=== PATIENT | female | born 1935 | race Caucasian/White ===

== ENCOUNTER 2025-01-07 12:37 | Inpatient (IN) ==
--- NOTE | 2025-01-07 13:01 | XRay Report ---
XR chest 1V portable CLINICAL HISTORY: Dyspnea, swelling COMPARISON STUDY: 02/09/2018 FINDINGS: There is mild cardiomegaly with pulmonary vascular congestion. There is opacity at the left base with obscuration of the left hemidiaphragm and blunting of the left costophrenic angle. No pneu mothorax. Interval left shoulder prosthesis shows no hardware palpitation. IMPRESSION: CHF with small left pleural effusion and associated left lung base consolidation. ACT 112: Negative or not required by law. Electronically signed by: Foreign Tapia M.D. 01/07/2025 1:00 PM
[2025-01-07 13:05] LABS: Basophils # (auto) 0.04 K/uL (0.00-0.20); Basophils % (auto) 0.8 %; Eosinophils # (auto) 0.08 K/uL (0.00-0.50); Eosinophils % (auto) 1.7 %; Hematocrit (blood only) 32.8 % (37.0-47.0); Hemoglobin 9.9 g/dl (12.0-16.0); Immature Granulocytes # (auto) 0.02 K/uL (0.01-0.20); Immature Granulocytes % (auto) 0.4 %; Lymphocytes # (auto) 0.52 K/uL (1.20-3.40); Mean Corpuscular Hemoglobin 24.9 pg (25.0-34.0); Mean Corpuscular Hgb Conc 30.2 g/dL (32.0-36.0); Mean Corpuscular Volume 82.6 fL (80.0-100.0); Mean Platelet Volume 9.2 fL (9.4-12.4); Monocytes % (auto) 6.4 %; Neutrophils # (auto) 3.76 K/uL (1.40-6.50); Neutrophils % (auto) 79.7 %; Platelet Count 472 K/uL (130-400); RDW Coefficient of Variation 16.3 % (11.5-14.5); RDW Standard Deviation 47.2 fL (36.4-46.3); Red Blood Count 3.97 M/uL (4.20-5.40); White Blood Count 4.72 K/ul (4.8-10.8)
--- NOTE | 2025-01-07 13:08 | Emergency Department Note ---
Impression & Plan Weakness, Congestive heart failure, Acute UTI, Pulmonary edema ED Provider Note Provider: Solomon Casanova MD CHIEF COMPLAINT: Shortness of breath, swelling HISTORY OF PRESENT ILLNESS: Patient is a 89-year-old female present here via ambulance from home today. Patient sees a past 2 weeks she has had worsening shortness of breath. Increased swelling lower extremities reported. States she does take Lasix and took to 20 mg Lasix today instead of 1 to try to help. Some cough this morning. No chest pain. No fevers. Denies any nausea, vomiting, abdominal pain. Denies again falls or trauma to me. No sore throat or nasal congestion. States that her son was concerned about her breathing and recommended she come here for evaluation. Follows with her doctor in [place]. Breathing is significantly worse with exertion. Patient later does states she took extra Lasix pill yesterday and today. PAST MEDICAL HISTORY: As noted above MEDICATIONS: Reviewed home medications SOCIAL HISTORY: Non-smoker, lives with son PHYSICAL EXAM: GENERAL: alert and oriented in no acute distress on stretcher Head: normocephalic and atraumatic EYES: No injection, discharge or icterus. NECK: Trachea midline. ENT: Mucous membranes pink and moist. LUNGS: Airway patent. No retractions. Breath sounds crackles in the bases, diminished, no wheezes HEART: Regular rate and rhythm. No chest wall tenderness ABDOMEN: Soft and non-tender, without guarding or rebound. SKIN: Acyanotic, warm, dry, without rashes EXTREMITIES: Without tenderness with 2+ edema of the lower extremities. NEUROLOGICAL: No focal deficits. No aphasia. No facial droop or slurred speech. EK bpm sinus rhythm with PVC and PAC. No acute ST segment elevation or depression. QTc 454. CONTINUOUS CARDIAC MONITORING: was ordered and showed a heart rate of 70s to 90s bpm in normal sinus rhythm occasional PVC/PAC Patient's laboratory studies and imaging reviewed. Differential includes Infection, dehydration, metabolic abnormality, hypo/hyperglycemia, electrolyte disturbance, anemia, hypoxia, pneumonia, fluid overload, cardiac sources, neurologic, as well as other pathologies. IMPRESSION/MEDICAL DECISION MAKING: Patient in no severe distress and not hypoxic here at rest. Does appear grossly fluid overloaded on exam. X-ray shows evidence of pulmonary edema with a left- sided effusion.. No chest pain and EKG without STEMI findings. Troponin sent and BNP. Basic blood obtained. Respiratory viral panel sent but lower suspicion at this time for an infectious source. Moderate anemia here hemoglobin 9.9. White blood count 4.7. No significant shift. Negative respiratory viral panel. Urinalysis is somewhat concerning for infection. BNP elevated 872. Troponin just above normal 18.4 but I doubt acute ACS. No skin electrolyte abnormality signs or renal dysfunction. Discussed with her and family at bedside. Will give additional Lasix and will cover ceftriaxone for possible UTI. Again lower suspicion for pneumonia but believe UTI in conjunction with fluid overload affecting her. Discussed with him her staying for further observation and care given both these problems and combined with her comorbidities. In shared decision making patient and her sons agree with this plan. Evidently has recently established with [facility]. Has some valvular issues that could be further workup as I do not have a recent echo here. Hospitalist team contacted. DIAGNOSIS: CHF, UTI, shortness of breath DISPOSITION: Hospitalist will evaluate Patient was agreeable with this plan. 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 (RADIATION [place]) Lyme disease CAUSED BLOOD INFECTION 2017 Hyperlipidemia HX OF Surgical History History of cataract surgery LEFT H/O shoulder surgery LEFT SHOULDER REPLACEMENT History of cardiac cath X 2 (NO STENTS) Family History Mother Family history of diabetes mellitus Social History Smoking Status: Never smoker Second Hand Exposure: No; Do You Dip or Chew Tobacco: No; Hx Alcohol Use: No Hx Substance Use: No Preferred Language: Telugu Communication Ability: Effective Childcare Director Required: No Beliefs That Will Affect Care: None Current Living Situation: Family Current Living Situation Comment: LIVES WITH SON Feels Safe at Home: Yes Assistive Devices: Glasses Allergies Allergies Allergy/AdvReac Type Severity Reaction Status Date / Time Iodinated Contrast Media Allergy Intermediate HIVES Verified 12/07/18 08:40 Penicillins Allergy Intermediate RASH Verified 12/07/18 08:40 Home Meds Home Medications Medication Instructions Recorded Confirmed amlodipine 5 mg tablet 5 mg PO QAM 11/12/18 01/07/25 aspirin 81 mg tablet,delayed 81 mg PO QAM 11/12/18 01/07/25 release (Aspir-Low) ferrous sulfate 325 mg (65 mg 325 mg PO DAILY 01/07/25 01/07/25 iron) tablet (Iron (ferrous sulfate)) furosemide 20 mg tablet 20 mg PO DAILY 01/07/25 01/07/25 lisinopril 20 mg tablet 20 mg PO HS 01/07/25 01/07/25 qdlvjcrcepcw-wghvxhwk-jvwmdm tablet 1 tab PO DAILY 01/07/25 01/07/25 Results & Data (ED) Vital Signs Vital Signs - 24 hr 01/07/25 12:43 01/07/25 12:43 01/07/25 12:44 Temperature 36.5 C Temperature Source Oral Pulse Rate 82 Respiratory Rate 18 Respiratory Depth Normal Blood Pressure 149/101 H Blood Pressure Mean 117 Blood Pressure Position Semi-fowlers Pulse Oximetry 96 Oxygen Delivery Method Room Air Room Air Room Air Sepsis Recent Fever Within 48 Hours No Sepsis New/Unexplained Change in Mental Status No Sepsis Action Taken by Nursing No Action Required 01/07/25 14:19 Temperature Temperature Source Pulse Rate 70 Respiratory Rate Respiratory Depth Blood Pressure Blood Pressure Mean Blood Pressure Position Pulse Oximetry Oxygen Delivery Method Sepsis Recent Fever Within 48 Hours Sepsis New/Unexplained Change in Mental Status Sepsis Action Taken by Nursing Laboratory Data 01/07/25 12:45 01/07/25 12:45 Lab Results 01/07/25 01/07/25 01/07/25 Range/Units 12:45 12:50 13:30 WBC 4.72 L (4.8-10.8) K/ul RBC 3.97 L (4.20-5.40) M/uL Hgb 9.9 L (12.0-16.0) g/dl Hct 32.8 L (37.0-47.0) % MCV 82.6 (80.0-100.0) fL MCH 24.9 L (25.0-34.0) pg MCHC 30.2 L (32.0-36.0) g/dL RDW Std Deviation 47.2 H (36.4-46.3) fL RDW Coeff of Donna 16.3 H (11.5-14.5) % Plt Count 472 H (130-400) K/uL MPV 9.2 L (9.4-12.4) fL Immature Gran % (Auto) 0.4 % Neut % (Auto) 79.7 % Lymph % (Auto) 11.0 % Collin % (Auto) 6.4 % Eos % (Auto) 1.7 % Baso % (Auto) 0.8 % Neut # (Auto) 3.76 (1.40-6.50) K/uL Lymph # (Auto) 0.52 L (1.20-3.40) K/uL Collin # (Auto) 0.30 (0.11-0.59) K/uL Eos # (Auto) 0.08 (0.00-0.50) K/uL Baso # (Auto) 0.04 (0.00-0.20) K/uL Immature Gran # (Auto) 0.02 (0.01-0.20) K/uL PT 11.0 (9.0-12.0) Seconds INR 1.0 (0.9-1.1) APTT 24 (21-31) Seconds PTT Ratio 0.9 Sodium 141 (136-145) mmol/L Potassium 3.9 (3.5-5.1) mmol/L Chloride 106 (98-107) mmol/L Carbon Dioxide 28 (21-32) mmol/L Anion Gap 7 (3-11) BUN 10 (6-23) mg/dl Creatinine 0.76 (0.6-1.2) mg/dl Est Cr Clr Drug Dosing 39.7 ml/min eGFR 74.85 BUN/Creatinine Ratio 13.2 (10-20) Glucose 121 H (70-99(Fasting)) mg/dl Calcium 9.3 (8.6-10.3) mg/dl Magnesium 2.1 (1.7-2.4) mg/dl Total Bilirubin 0.4 (0.2-1.0) mg/dl AST 27 (13-39) U/L ALT 20 (7-52) U/L Alkaline Phosphatase 63 (34-104) U/L Troponin I High Sens 18.4 H (0-14) pg/ml B-Natriuretic Peptide 872 H (0-100) pg/ml Total Protein 8.6 H (6.0-8.3) gm/dl Albumin 4.2 (3.4-5.0) gm/dl Globulin 4.4 H (2.5-4.0) gm/dl Albumin/Globulin Ratio 1.0 (0.9-2) Urine Color Yellow Urine Appearance Clear (Clear) Urine pH 7.0 (4.5-7.5) Ur Specific [place] 1.008 (1.000-1.030) Urine Protein Negative (Negative) Urine Glucose (UA) Negative (Negative) Urine Ketones Negative (Negative) Urine Blood Negative (Negative) Urine Nitrite Positive A (Negative) Urine Bilirubin Negative (Negative) Urine Urobilinogen Negative (Negative) Ur Leukocyte Esterase 1+ H (Negative) Urine WBC (Auto) 6-10 H (0-5) /hpf Urine RBC (Auto) 0-2 (0-2) /hpf U Hyaline Cast (Auto) 0-2 (0-2) /lpf U Epithel Cells (Auto) 0-2 (0-2) /hpf Urine Bacteria (Auto) 4+ H (None Seen) Adenovirus (PCR) Not Detected (NotDetected) B. pertussis DNA (PCR) Not Detected (NotDetected) B.parapertussis DNA PCR Not Detected (NotDetected) C. pneumoniae DNA (PCR) Not Detected (NotDetected) Coronavirus OC43 (PCR) Not Detected (NotDetected) Coronavirus HKU1 (PCR) Not Detected (NotDetected) Coronavirus 229E (PCR) Not Detected (NotDetected) SARS-CoV-2 (PCR) Not Detected (NotDetected) Coronavirus NL63 (PCR) Not Detected (NotDetected) Human Metapneumovir PCR Not Detected (NotDetected) Influenza Type A (PCR) Not Detected (NotDetected) Influenza Type B (PCR) Not Detected (NotDetected) M. pneumoniae (PCR) Not Detected (NotDetected) Parainfluenza 1 (PCR) Not Detected (NotDetected) Parainfluenza 2 (PCR) Not Detected (NotDetected) Parainfluenza 3 (PCR) Not Detected (NotDetected) Parainfluenza 4 (PCR) Not Detected (NotDetected) RSV (PCR) Not Detected (NotDetected) Entero/Rhino (PCR) Not Detected (NotDetected) Administered Medications Discontinued Medications Furosemide (Furosemide Inj 20 Mg/2 Ml Vial) 20 mg IV ONE ONE Stop: 01/07/25 14:04 Last Admin: 01/07/25 14:10 Dose: 20 mg Documented By: ROYER Furosemide (Furosemide Inj 20 Mg/2 Ml Vial) 20 mg IV ONE ONE Stop: 01/07/25 14:53 Last Admin: 01/07/25 15:38 Dose: 20 mg Documented By: ALIANA Ceftriaxone Sodium (Rocephin) 2,000 mg in 50 mls @ 100 mls/hr IV NOW STA Stop: 01/07/25 14:32 Last Infusion: 01/07/25 14:40 Dose: Infused Documented By: Admin: 01/07/25 14:10 Dose: 100 mls/hr Documented By: ROYER Imaging Data Radiologist's Impression: Chest X-Ray 01/07/25 12:44 XR chest 1V portable CLINICAL HISTORY: Dyspnea, swelling COMPARISON STUDY: 02/09/2018 FINDINGS: There is mild cardiomegaly with pulmonary vascular congestion. There is opacity at the left base with obscuration of the left hemidiaphragm and blunting of the left costophrenic angle. No pneumothorax. Interval left shoulder prosthesis shows no hardware palpitation. IMPRESSION: CHF with small left pleural effusion and associated left lung base consolidation. ACT 112: Negative or not required by law. Electronically signed by: Foreign Tapia M.D. 01/07/2025 1:00 PM Discharge Plan Visit Data Chief Complaint: Shortness of Breath/Dyspnea Stated Complaint: SOB, LOWER EXT. EDEMA ED Provider: Solomon Casanova Discharge Problem: Weakness, Congestive heart failure, Acute UTI, Pulmonary edema Patient Disposition: Being Evaluated by Hospitalist Condition: Fair Forms Stand Alone Forms: My [facility] Prescriptions Prescriptions: No Action amlodipine 5 mg Tablet 5 mg PO QAM aspirin [Aspir-Low] 81 mg Tablet,Delayed Release (Dr/Ec) 81 mg PO QAM lisinopril 20 mg tablet 20 mg PO HS furosemide 20 mg tablet 20 mg PO DAILY ferrous sulfate [Iron (ferrous sulfate)] 325 mg (65 mg iron) Tablet 325 mg PO DAILY Centrum Silver Tablet 1 tab PO DAILY Referrals Referrals: Robert Almanza [Outside Practitioners] - Discharge Problem: Congestive heart failure Qualifiers: Heart failure type: unspecified
[2025-01-07 13:22] LABS: Albumin Level 4.2 gm/dl (3.4-5.0); BUN Creatinine Ratio 13.2 (10-20); Bilirubin,Total 0.4 mg/dl (0.2-1.0); Calcium 9.3 mg/dl (8.6-10.3); Creatinine Clr Calc Pharmacy 39.7 ml/min; Globulin 4.4 gm/dl (2.5-4.0); Magnesium 2.1 mg/dl (1.7-2.4); Potassium 3.9 mmol/L (3.5-5.1); Total Protein 8.6 gm/dl (6.0-8.3)
[2025-01-07 13:28] LABS: Troponin I High Sensitivity 18.4 pg/ml (0-14)
[2025-01-07 13:33] LABS: Partial Thromboplastin Ratio 0.9; Partial Thromboplastin Time 24 Seconds (21-31)
[2025-01-07 13:43] LABS: Appearance Urine Clear (Clear); Bacteria Urine Automated 4+ (None Seen); Bilirubin Urine Negative (Negative); Blood Urine Negative (Negative); Cast Urine Automated 0-2 /lpf (0-2); Color Urine Yellow; Epithelial Cell Urine Auto 0-2 /hpf (0-2); Glucose Urine UA Negative (Negative); Ketones Urine Negative (Negative); Leukocyte Esterase Urine 1+ (Negative); Nitrite Urine Positive (Negative); Protein Urine Negative (Negative); RBC Urine Automated 0-2 /hpf (0-2); Specific Gravity Urine 1.008 (1.000-1.030); Urobilinogen Urine Negative (Negative)
[2025-01-07 13:50] LABS: Adenovirus PCR Not Detected (NotDetected); Bordetella parapertussis PCR Not Detected (NotDetected); Bordetella pertussis PCR Not Detected (NotDetected); Chlamydia pneumoniae PCR Not Detected (NotDetected); Coronavirus 229E PCR Not Detected (NotDetected); Coronavirus CoV-2 (COVID19)PCR Not Detected (NotDetected); Coronavirus HKU1 PCR Not Detected (NotDetected); Coronavirus NL63 PCR Not Detected (NotDetected); Coronavirus OC43PCR Not Detected (NotDetected); Human Metapneumovirus PCR Not Detected (NotDetected); Influenza A PCR Not Detected (NotDetected); Influenza B PCR Not Detected (NotDetected); Mycoplasma pneumoniae PCR Not Detected (NotDetected); Parainfluenza Virus 1 PCR Not Detected (NotDetected); Parainfluenza Virus 2 PCR Not Detected (NotDetected); Parainfluenza Virus 3 PCR Not Detected (NotDetected); Parainfluenza Virus 4 PCR Not Detected (NotDetected); Respiratory Syncytial VirusPCR Not Detected (NotDetected); Rhinovirus/Enterovirus PCR Not Detected (NotDetected)
[2025-01-07] MEDS: cefTRIAXone SODIUM 2,000 MG/50 ML BAG IV STA (14:10)
[2025-01-07] MEDS: FUROSEMIDE INJ 20 MG/2 ML VIAL IV ONE ×2 (14:10→15:38)
--- NOTE | 2025-01-07 14:24 | History & Physical Report ---
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 CHF SOB on exertion, orthopnea, worsening LE edema x2 weeks per patient CXR findings include mild cardiomegaly with pulmonary vascular congestion, opacity at left base BNP elevated to 872 Repeat IV lasix 20mg for total of 40mg Daily weight and accurate I&Os 1500mL fluid restriction Labs in am Consult Cardiology and appreciate recs Possible PNA CXR findings included opacity at left base - could be fluid vs pneumonia Patient reports productive cough Procalcitonin pending Hold off on abx for now Elevated troponin Initial troponin 18.4 Repeat pending Iron deficiency anemia Labs demonstrate anemia with RBC 3.97, Hgb 9.9, Hct 32.8 Outpatient iron studies reviewed with iron 17, TIBC 317, ferritin 31 Continue ferrous sulfate as prescribed by outpatient PCP UTI UA +nitrites, leuk esterase, WBCs, bacteria Received rocephin x1 in ED Patient asymptomatic Hold off on abx for now Follow urine culture Hypertension Continue amlodipine and lisinopril per home dosing History of maltoma s/p radiation therapy and currently under surveillance Follows with Heme/Onc last seen in 2018 DVT Prophylaxis: SQ Heparin Code Status: FULL CODE - As per discussion at bedside with the patient. PCP: Disposition: admit to telemetry Patient seen in collaboration with Dr Dagn. Please see addendum. I spent a total of 75 minutes coordinating, documenting and providing care for this patient excluding time spent in the performance of separately billed services or time spent by another provider/QHP. Admission and Anticipated Discharge Date Admission Date: 01/07/2025 History of Present Illness Chief Complaint: SOB Primary Care Provider: Nimo Robles MD 89 year old female with PMH significant for CAD, HTN, HLD, GERD, LE edema, and history of maltoma s/p radiation therapy who presented to the ED today with SOB and edema x2 weeks. History obtained from patient and son/daughter in law. She reports SOB with exertion, orthopnea, and worsening LE edema for the last two weeks. She also notes an intermittent cough with phlegm and runny nose only when bending over for the last two weeks as well. Denies chest pain, headache, dizziness, sore throat, N/V/D, urinary symptoms, hematuria, hematochezia. Her daughter in law notes that she has a valve issue and recently switched from [facility] to [facility] in [place]. Allergies Allergy/AdvReac Type Severity Reaction Status Date / Time Iodinated Contrast Media Allergy Intermediate HIVES Verified 12/07/18 08:40 Penicillins Allergy Intermediate RASH Verified 12/07/18 08:40 Home Medications Medication Instructions Recorded Confirmed Type amlodipine 5 mg tablet 5 mg PO QAM 11/12/18 01/07/25 History aspirin 81 mg tablet,delayed 81 mg PO QAM 11/12/18 01/07/25 History release (Aspir-Low) ferrous sulfate 325 mg (65 mg 325 mg PO DAILY 01/07/25 01/07/25 History iron) tablet (Iron (ferrous sulfate)) furosemide 20 mg tablet 20 mg PO DAILY 01/07/25 01/07/25 History lisinopril 20 mg tablet 20 mg PO HS 01/07/25 01/07/25 History gunoepvqyqcf-fihhnyul-tqzavt tablet 1 tab PO DAILY 01/07/25 01/07/25 History 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 (RADIATION [place]) Lyme disease CAUSED BLOOD INFECTION 2018 Hyperlipidemia HX OF Surgical History History of cataract surgery LEFT H/O shoulder surgery LEFT SHOULDER REPLACEMENT History of cardiac cath X 2 (NO STENTS) Family History Mother Family history of diabetes mellitus Social History Smoking Status: Never smoker Second Hand Exposure: No; Do You Dip or Chew Tobacco: No; Hx Alcohol Use: No Hx Substance Use: No Preferred Language: Icelandic Communication Ability: Effective 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 Beliefs That Will Affect Care: None Current Living Situation: Family Current Living Situation Comment: LIVES WITH SON Feels Safe at Home: Yes Assistive Devices: Glasses Review of Systems Review of Systems: All systems reviewed & are unremarkable except as noted in HPI & below Physical Exam Physical Exam: refer to exam by Dr Dang Results & Data Results & Data Vital Signs (Past 12 Hours) Vital Signs Temp Pulse Resp BP Pulse Ox O2 Del Method 01/07/25 14:19 70 01/07/25 12:44 Room Air 01/07/25 12:43 Room Air 01/07/25 12:43 36.5 C 82 18 149/101 H 96 Room Air Laboratory Results Short CBC 01/07/25 Range/Units 12:45 WBC 4.72 L (4.8-10.8) K/ul Hgb 9.9 L (12.0-16.0) g/dl Hct 32.8 L (37.0-47.0) % Plt Count 472 H (130-400) K/uL BMP 01/07/25 12:45 Sodium 141 Potassium 3.9 Chloride 106 Carbon Dioxide 28 BUN 10 Creatinine 0.76 Glucose 121 H Calcium 9.3 Liver Function 01/07/25 Range/Units 12:45 Total Bilirubin 0.4 (0.2-1.0) mg/dl AST 27 (13-39) U/L ALT 20 (7-52) U/L Alkaline Phosphatase 63 (34-104) U/L Albumin 4.2 (3.4-5.0) gm/dl Urine 01/07/25 Range/Units 13:30 Urine Color Yellow Urine Appearance Clear (Clear) Urine pH 7.0 (4.5-7.5) Ur Specific [place] 1.008 (1.000-1.030) Urine Protein Negative (Negative) Urine Glucose (UA) Negative (Negative) I have independently reviewed and interpreted patient's admitting labs including CBC, CMP, PTT, PT/INR, mag, troponin, BNP, UA. Diagnostic Findings Chest X-Ray 01/07/25 12:44 XR chest 1V portable CLINICAL HISTORY: Dyspnea, swelling COMPARISON STUDY: 02/09/2018 FINDINGS: There is mild cardiomegaly with pulmonary vascular congestion. There is opacity at the left base with obscuration of the left hemidiaphragm and blunting of the left costophrenic angle. No pneumothorax. Interval left shoulder prosthesis shows no hardware palpitation. IMPRESSION: CHF with small left pleural effusion and associated left lung base consolidation. ACT 112: Negative or not required by law. Electronically signed by: Foreign Tapia M.D. 01/07/2025 1:00 PM Code Status & VTE Plan Code Status Full Code Supervising Physician Co-Signing Physician Notes Presents with shortness of breath especially with exertion and leg swelling for the past 2 weeks ROS notable for cough, orthopnea Denied any urinary symptoms, fever, chills On exam, General: Elderly woman in no distress Eyes: PERRL, conjunctivae normal, not pale, anicteric sclerae, EOM intact bilaterally ENMT: External ear and nose normal, oropharynx normal Respiratory: Normal respiratory effort, no respiratory distress, +crackles Cardiovascular: RRR S1 S2 +murmur Gastrointestinal (Abdomen): Abdomen is not distended, soft, non-tender to palpation, no guarding, no palpable hepatosplenomegaly, normal bowel sounds Musculoskeletal: Bilateral pitting pedal edema Neurologic: Alert and oriented x 3, No focal weakness, sensation grossly intact Psychiatric: Euthymic affect Labs notable for Hb of 9.9, trop 18, BNP 872 CXR noted congestion left pleural effusion. Possible left base consolidation History and exam suggestive of Congestive Heart Failure Start IV lasix 40mg daily Daily weights, I/O Get TTE Trend trop Cards c/s Get EKG Considering no fever or leukocytosis, hold off antibiotics for now Check procal UA had +esterase, nitrite, 6-10 WBC but patient denied all urinary symptoms Agree with plans as detailed by Selena BRASHER I spent a total of 40 minutes coordinating, documenting and providing care for this patient excluding time spent in performance of separately billed services (1) Congestive heart failure Heart failure type: unspecified
--- NOTE | 2025-01-07 16:06 | Cardiology Consultation ---
Date of Consultation January 07, 2025 Assessment & Plan (1) Systolic and diastolic CHF, acute: (2) Aortic stenosis: (3) Murmur: (4) ASCVD (arteriosclerotic cardiovascular disease): (5) Elevated troponin: (6) Iron deficiency anemia: (7) HTN, goal below 140/80: (8) Dyslipidemia, goal LDL below 70: Plan 89-year-old female presenting with signs and symptoms suggesting acute decompensated systolic and diastolic congestive heart failure occurring in the setting of at least moderate probable aortic valve stenosis, known ASCVD with remote intervention detailed below, undefined iron deficiency anemia. High- sensitivity troponin mildly elevated. EKG abnormal though without new/acute ST segment change. Recommendations: * Agree with IV furosemide at 40 mg/day * Supplement potassium orally * Refer for resting echocardiography * Daily weights on same standing scale * Document I's and O's as accurately as possible * Daily labs * Continuous telemetry monitoring * Add low dose beta-jay therapy * Decrease lisinopril dosing from 20 mg/day to 10 mg/day, in the setting of aortic stenosis * Consider reduction in amlodipine dosing pending all of the above. * Continue aspirin 81 mg/day * Workup of iron deficiency anemia, asymptomatic UTI and possible pneumonia as per Hospitalist Service Supervising Physician Co-Signing Physician Notes Attending attestation: Case reviewed with the advanced practitioner. I have personally performed a history and physical examination on the patient. I have reviewed the advanced practitioner's documentation on the date of service referenced in note, and I agree with, and take responsibility for the plan of care. Boo Irizarry DO History of Present Illness Reason for Consultation: Congestive heart failure Requesting Physician: Selena BRASHER, [facility] Service Attending Physician: [facility] Service History of Present Illness Haydee Azevedo is a 89 year old female who is being seen at the request of [facility]. Reason for consultation include congestive heart failure. Patient evaluated in the ER, Room A12B. Two sons and [id number] at bedside. Patient describes experiencing worsening exertional dyspnea over the past few weeks with associated reduced exercise tolerance, cough, chest congestion, orthopnea requiring her to sleep in a recliner, lower extremity peripheral edema, and weight gain. Despite self titration of oral diuretics symptoms worsened, presenting to the ER via ambulance. Checks x-ray on presentation was interpreted by the radiologist revealing congestive heart failure with small left pleural effusion with associated left lung base consolidation. BNP elevated 872 pg/mL. Laboratory work also notable for anemia with recent outpatient laboratory work revealing iron deficiency. In the ER patient received a total of 40 mg of IV furosemide with some mild improvement in symptoms, with definite improvement in lower extremity peripheral edema. Admission EKG revealed sinus rhythm at 87 bpm with frequent atrial and ventricular ectopy with anterolateral STT wave abnormality, possible old anterolateral infarct. High-sensitivity troponin minimally elevated -18.4 then 18.6 pg/mL. Patient and family note following with Dr. Almanza in [place] x 32 years, recently establishing care with Dr. Cash. Workup revealed a "bad valve" for which the patient was referred to [facility] however she preferred alternative piece marker small arms. The patient has not yet been evaluated by cardiology regarding the valve issue. Patient denies chest pain, tightness, pressure, discomfort. No tachypalpitations. No PND. No dizziness, near syncope, or syncope. No fevers, chills, dysuria, hematuria, melena, or hematochezia Past Medical and Surgical History: ASCVD. Status post plain old balloon angioplasty of the LAD in May 1992. Repeat catheterization performed in October 1992, revealing a 95% LAD lesion status post plain old balloon angioplasty. The RCA was described as a large, dominant vessel that collateralized the LAD. There was no significant obstructive disease noted in the RCA. The LM had a 30% osteal stenosis. The LCX had a 20% proximal lesion. The ramus intermedius had luminal irregularities. Hypertension, hypertensive heart disease Dyslipidemia GERD Hiatal hernia History of MALToma status post radiation therapy Unknown kidney operation in the s at [facility] [place]. Family History: Mother with uncontrolled diabetes status post lower extremity amputation, passing in her upper 80s. Father with a cerebral hemorrhage at the age of 46. Two brothers, both passed, one with Parkinsons, one with diabetes. Social History: Nonsmoker. No smokeless tobacco. No alcohol. No illegal drug use. . Three sons. Lives with one son. Allergies Allergy/AdvReac Type Severity Reaction Status Date / Time Iodinated Contrast Media Allergy Intermediate HIVES Verified 12/07/18 08:40 Penicillins Allergy Intermediate RASH Verified 12/07/18 08:40 Home Medications Medication Instructions Recorded Confirmed Type amlodipine 5 mg tablet 5 mg PO QAM 11/12/18 01/07/25 History aspirin 81 mg tablet,delayed 81 mg PO QAM 11/12/18 01/07/25 History release (Aspir-Low) ferrous sulfate 325 mg (65 mg 325 mg PO DAILY 01/07/25 01/07/25 History iron) tablet (Iron (ferrous sulfate)) furosemide 20 mg tablet 20 mg PO DAILY 01/07/25 01/07/25 History lisinopril 20 mg tablet 20 mg PO HS 01/07/25 01/07/25 History rnwosxnhplam-ystihoph-iidrbw tablet 1 tab PO DAILY 01/07/25 01/07/25 History Patient History Medical History Pulmonary edema Weakness Encounter for pre-operative examination Encounter for pre-operative examination Shoulder fracture History of IBS 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 (RADIATION [place]) Lyme disease CAUSED BLOOD INFECTION 2017 Hyperlipidemia HX OF Surgical History History of cataract surgery LEFT H/O shoulder surgery LEFT SHOULDER REPLACEMENT History of cardiac cath X 2 (NO STENTS) Family History Mother Family history of diabetes mellitus Social History Smoking Status: Never smoker Second Hand Exposure: No; Do You Dip or Chew Tobacco: No; Hx Alcohol Use: No Hx Substance Use: No Preferred Language: Guinean Communication Ability: Effective Wire Splicer Required: No Beliefs That Will Affect Care: None Current Living Situation: Family Current Living Situation Comment: LIVES WITH SON Feels Safe at Home: Yes Assistive Devices: Glasses Review of Systems Review of Systems: Complete Review of Systems is as stated above, negative, or noncontributory. Physical Exam Physical Exam: General: A&Ox3. NAD. Skin: Pallor HENT: Normocephalic. Atraumatic. Eyes: PER. Conjunctiva pink, sclera pale. Neck: Transmitted systolic murmur, ? carotid bruits. JVD. HJR. Heart: Irregular with frequent ectopy. Grade II-III/ systolic ejection murmur suggestive of moderate aortic valve stenosis. + Apical systolic murmur. No diastolic murmur appreciated. No rub. Lungs: Diminished. Decreased at the left base. Bibasilar rales. No wheeze. Abdomen: +BS. Soft. Nontender. No masses or organomegaly. Extremities: 1+ lower extremity edema. No cyanosis Limited neurological examination is without focal deficits. Pulses: Posterior tibial=1/4. Results & Data Vital Signs (Past 12 Hours) Vital Signs Temp Pulse Resp BP Pulse Ox O2 Del Method 01/07/25 14:19 70 01/07/25 12:44 Room Air 01/07/25 12:43 Room Air 01/07/25 12:43 36.5 C 82 18 149/101 H 96 Room Air Laboratory Results Cardiac Enzymes 01/07/25 01/07/25 Range/Units 12:45 15:36 AST 27 (13-39) U/L Troponin I High Sens 18.4 H 18.6 H (0-14) pg/ml B-Natriuretic Peptide 872 H (0-100) pg/ml Coagulation 01/07/25 Range/Units 12:45 PT 11.0 (9.0-12.0) Seconds APTT 24 (21-31) Seconds B-Natriuretic Peptide 872 H (0-100) pg/ml CBC 01/07/25 Range/Units 12:45 WBC 4.72 L (4.8-10.8) K/ul RBC 3.97 L (4.20-5.40) M/uL Hgb 9.9 L (12.0-16.0) g/dl Hct 32.8 L (37.0-47.0) % Plt Count 472 H (130-400) K/uL Neut # (Auto) 3.76 (1.40-6.50) K/uL Lymph # (Auto) 0.52 L (1.20-3.40) K/uL [place] # (Auto) 0.30 (0.11-0.59) K/uL Eos # (Auto) 0.08 (0.00-0.50) K/uL Baso # (Auto) 0.04 (0.00-0.20) K/uL Comprehensive Metabolic Panel 01/07/25 Range/Units 12:45 Sodium 141 (136-145) mmol/L Potassium 3.9 (3.5-5.1) mmol/L Chloride 106 (98-107) mmol/L Carbon Dioxide 28 (21-32) mmol/L BUN 10 (6-23) mg/dl Creatinine 0.76 (0.6-1.2) mg/dl Glucose 121 H (70-99(Fasting)) mg/dl Calcium 9.3 (8.6-10.3) mg/dl AST 27 (13-39) U/L ALT 20 (7-52) U/L Alkaline Phosphatase 63 (34-104) U/L Total Protein 8.6 H (6.0-8.3) gm/dl Albumin 4.2 (3.4-5.0) gm/dl Intake and Output 01/07/25 01/07/25 01/07/25 06:59 14:59 22:59 Intake Total 50 / 50 Output Total 850 / 850 Balance -800 / -800 Intake: IV 50 / 50 cefTRIAXone SODIUM 2,000 mg In 50 / 50 50 ml @ 100 mls/hr IV NOW STA Rx#:[id number] Output: Urine 850 / 850 Other: Weight 55.3 kg Weight Measurement Method Built in [facility] Patient Weight 01/08/25 06:59 Weight 55.3 kg
[2025-01-07] MEDS: POTASSIUM CHLORIDE CRTAB 20 MEQ TABCR PO ONE (16:56)
[2025-01-07] MEDS ORDERED: ACETAMINOPHEN 325 MG TAB PO PRN (17:50)
[2025-01-07] MEDS ORDERED: POLYETHYLENE (MIRALAX) 17 GM PACK PO PRN (17:50)
[2025-01-07] MEDS: lisinopril 10 MG TAB PO SCH (20:49)
[2025-01-07] MEDS: HEPARIN SOD 5,000 UNIT/0.5 ML VIAL SQ SCH (20:51)
[2025-01-08 03:29] LABS: Hematocrit (blood only) 28.3 % (37.0-47.0); Hemoglobin 8.6 g/dl (12.0-16.0); Mean Corpuscular Hemoglobin 25.1 pg (25.0-34.0); Mean Corpuscular Hgb Conc 30.4 g/dL (32.0-36.0); Mean Corpuscular Volume 82.7 fL (80.0-100.0); Mean Platelet Volume 9.2 fL (9.4-12.4); Platelet Count 396 K/uL (130-400); RDW Coefficient of Variation 16.6 % (11.5-14.5); Red Blood Count 3.42 M/uL (4.20-5.40); White Blood Count 5.18 K/ul (4.8-10.8)
[2025-01-08 03:43] LABS: BUN Creatinine Ratio 16.2 (10-20); Creatinine Clr Calc Pharmacy 42.1 ml/min; Phosphorus 3.8 mg/dl (2.5-4.9)
[2025-01-08 03:50] LABS: Troponin I High Sensitivity 19.6 pg/ml (0-14)
--- NOTE | 2025-01-08 07:09 | Electrocardiogram Report ---
Test Reason : Blood Pressure : */* mmHG Vent. Rate : 87 BPM Atrial Rate : 87 BPM P-R Int : 134 ms QRS Dur : 84 ms QT Int : 378 ms P-R-T Axes : 72 -9 28 degrees QTcB Int : 454 ms Sinus rhythm with occasional Premature ventricular complexes and Premature atrial complexes Cannot rule out Inferior infarct , age undetermined Abnormal ECG Confirmed by Roberth Loaiza ([id number]) on 01/08/2025 7:08:33 AM Referred By: REFERRED SELF Confirmed By: Roberth Loaiza
[2025-01-08] MEDS: FERROUS SULFATE 325 MG TAB PO SCH (08:42)
[2025-01-08] MEDS: ASPIRIN 81 MG ECTAB PO SCH (08:42)
[2025-01-08] MEDS: amLODIPine BESYLATE 5 MG TAB PO SCH (08:42)
[2025-01-08] MEDS: METOPROLOL SUCC 25MG EXT REL TAB PO SCH (08:42)
[2025-01-08] MEDS: FUROSEMIDE 40 MG/4 ML VIAL IV SCH (08:46)
--- NOTE | 2025-01-08 11:12 | Cardiology Progress Note ---
Date of Service January 08, 2025 Assessment & Plan (1) Systolic and diastolic CHF, acute: (2) Aortic stenosis: (3) Murmur: (4) ASCVD (arteriosclerotic cardiovascular disease): (5) Elevated troponin: (6) Iron deficiency anemia: (7) HTN, goal below 140/80: (8) Dyslipidemia, goal LDL below 70: Plan 89-year-old female presenting with signs and symptoms suggesting acute decompensated congestive heart failure occurring in the setting of probable significant aortic valve stenosis. Patient with known underlying ASCVD with remote coronary intervention, undefined iron deficiency anemia. High- sensitivity troponin mildly elevated (18.4 -> 18.6 -> 20.4 -> 19.6 pg/mL). EKG abnormal though without new/acute ST segment change. Resting echocardiography completed, pending interpretation Recommendations: * Continue IV furosemide at 40 mg/day * Supplement potassium orally * Continuous telemetry monitoring * Low dose metoprolol succinate added this admission * Lisinopril dosing decreased this admission. * Continue aspirin 81 mg/day * Future referral [place] transcatheter [place] [facility]. * Workup of iron deficiency anemia, asymptomatic UTI and possible pneumonia as per Hospitalist Service Admission and Anticipated Discharge Date Admission Date: January 07, 2025 Supervising Physician Co-Signing Physician Notes Attending attestation: Case reviewed with the advanced practitioner. I have personally performed a history and physical examination on the patient. I have reviewed the advanced practitioner's documentation on the date of service referenced in note, and I agree with, and take responsibility for the plan of care. Subjective: Patient describes improved shortness of breath Exam: Pulmonary: Decreased breath sounds at the bases bilaterally Cardiovascular: Regular rhythm, 3/6 systolic murmur heard best at right sternal border Data: Summary transthoracic echocardiogram performed today 01/08/2025: The left ventricle is hyperdynamic. Left Ventricular Ejection Fraction = 65-70%. The left atrium is severely dilated. Critically severe aortic stenosis is present. The peak CW Doppler velocity across the aortic valve obtained from the right sternal border with a non imaging probe was in the range of 4.7 -5.2 meters/seconds, mean gradient 45- 58 millimeters Hg , aortic valve area 0.56 cm2. There is severe mitral annular calcification. There is mild mitral stenosis. There is severe mitral regurgitation. There is mild tricuspid regurgitation. Severe pulmonary hypertension is present. The pulmonary artery systolic pressure is estimated to be 70- 80 millimeters Hg. There is a large left pleural effusion. There is a large right pleural effusion. There is no prior study available at this institution for comparison. Impression/ Plan: -Acute on chronic heart failure with preserved ejection fraction due to valvular heart disease -Critically severe aortic stenosis, mild mitral stenosis, severe mitral regurgitation, severe pulmonary hypertension, bilateral pleural effusions Recommend ongoing diuretics. Patient had previously been referred to [place] for consideration of a percutaneous valve procedure, which per patient description was likely a TAVR. Patient agreeable to outpatient visit with the [facility] comprehensive valve clinic to discuss trends catheter valve intervention. Boo Irizarry, Subjective Patient seen and examined. Chart, medications, telemetry reviewed. Feels better. Breathing easier. Now able to lay on her back. Abdominal bloating and lower extremity peripheral edema improved. Making lots of urine. Telemetry: Sinus in the 70s and 80s predominantly, with occasional atrial ectopy. No atrial fibrillation. Echo performed, pending interpretation. Review of Systems Review of Systems: Complete Review of Systems is as stated above, negative, or noncontributory. Physical Exam Physical Exam: General: A&Ox3. NAD. HENT: Normocephalic. Atraumatic. Eyes: PER. Conjunctiva pink, sclera pale. Neck: Transmitted systolic murmur, ? carotid bruits. JVD. HJR. Heart: Regular at 76 bpm. Grade III/ systolic ejection murmur. Lungs: Diminished. Left basilar rales. No wheeze. Abdomen: +BS. Soft. Nontender. No masses or organomegaly. Extremities: Trace to 1+ lower extremity edema. No cyanosis Limited neurological examination is without focal deficits. Pulses: Posterior tibial=1/4. Results & Data Vital Signs (Past 12 Hours) Vital Signs Temp Pulse Pulse Resp BP Pulse Ox O2 Del Method 01/08/25 07:50 36.9 C 79 18 149/66 H 97 Room Air 01/08/25 07:35 100 H 01/08/25 03:05 37.0 C 77 16 150/67 H 96 Room Air 01/08/25 00:19 74 Laboratory Results Cardiac Enzymes 01/07/25 01/07/25 01/07/25 Range/Units 12:45 15:36 21:00 AST 27 (13-39) U/L Troponin I High Sens 18.4 H 18.6 H 20.4 H (0-14) pg/ml B-Natriuretic Peptide 872 H (0-100) pg/ml 01/08/25 Range/Units 03:12 AST (13-39) U/L Troponin I High Sens 19.6 H (0-14) pg/ml B-Natriuretic Peptide (0-100) pg/ml Coagulation 01/07/25 Range/Units 12:45 PT 11.0 (9.0-12.0) Seconds APTT 24 (21-31) Seconds B-Natriuretic Peptide 872 H (0-100) pg/ml CBC 01/07/25 01/08/25 Range/Units 12:45 03:12 WBC 4.72 L 5.18 (4.8-10.8) K/ul RBC 3.97 L 3.42 L (4.20-5.40) M/uL Hgb 9.9 L 8.6 L (12.0-16.0) g/dl Hct 32.8 L 28.3 L (37.0-47.0) % Plt Count 472 H 396 (130-400) K/uL Neut # (Auto) 3.76 (1.40-6.50) K/uL Lymph # (Auto) 0.52 L (1.20-3.40) K/uL [place] # (Auto) 0.30 (0.11-0.59) K/uL Eos # (Auto) 0.08 (0.00-0.50) K/uL Baso # (Auto) 0.04 (0.00-0.20) K/uL Comprehensive Metabolic Panel 01/07/25 01/08/25 Range/Units 12:45 03:12 Sodium 141 141 (136-145) mmol/L Potassium 3.9 4.0 (3.5-5.1) mmol/L Chloride 106 106 (98-107) mmol/L Carbon Dioxide 28 30 (21-32) mmol/L BUN 10 11 (6-23) mg/dl Creatinine 0.76 0.68 (0.6-1.2) mg/dl Glucose 121 H 90 (70-99(Fasting)) mg/dl Calcium 9.3 9.0 (8.6-10.3) mg/dl AST 27 (13-39) U/L ALT 20 (7-52) U/L Alkaline Phosphatase 63 (34-104) U/L Total Protein 8.6 H (6.0-8.3) gm/dl Albumin 4.2 (3.4-5.0) gm/dl Intake and Output 01/07/25 01/08/25 01/08/25 22:59 06:59 14:59 Intake Total 100 / 150 Output Total 550 / 1400 Balance -450 / -1250 Intake: Oral 100 / 100 Output: Urine Amount (Catheter) 550 / 550 External 550 / 550 Other: # Unmeasured Voids 1 Weight 47.5 kg 46.3 kg 46.3 kg Weight Measurement Method [facility] Patient Weight 01/09/25 06:59 Weight 46.3 kg
[2025-01-08] MEDS: POTASSIUM CHLORIDE CRTAB 20 MEQ TABCR PO SCH (11:37)
[2025-01-08] MEDS: cefTRIAXone SODIUM 1,000 MG/50 ML BAG IV SCH (14:25)
--- NOTE | 2025-01-08 16:41 | Hospitalist Progress Note ---
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 ECHO revealed severe aortic stenosis and severe mitral calcification with mild stenosis and severe regurgitation. PSAP 70-80mmhg #Severe aortic stenosis #Severe mitral annular calcification velocity 4.7-5.2m/s, mean gradient 45-58mmhg, valve area 0.56cm^2 Cardiology on consult: will need future referral for valve replacement #Acute on chronic heart failure with preserved EF CXR findings include mild cardiomegaly with pulmonary vascular congestion, opacity at left base EF 65-70% BNP 872 Cardiology following: continue lasix 40mg daily IV Continue reduced dose lisinopril Continue BB Daily I/Os FR 1500mL daily #Abnormal UA patient reporting intermittent irritation nitrite positive with bacteria, will treat for 3 days #Possible PNA CXR findings included opacity at left base - could be fluid vs pneumonia Patient reports productive cough, likely 12/2 pulm edema Procalcitonin normal #Elevated troponin Initial troponin 18.4 likely demand iso HFpEF exacerbation #Iron deficiency anemia Labs demonstrate anemia with RBC 3.97, Hgb 9.9, Hct 32.8 Outpatient iron studies reviewed with iron 17, TIBC 317, ferritin 31 Continue ferrous sulfate as prescribed by outpatient PCP, would consider IV in future but will avoid at this time iso overload #Hypertension Continue amlodipine 5mg reduced dosing of lisinopril this admission, 20 to 10mg daily History of maltoma s/p radiation therapy and currently under surveillance Follows with Heme/Onc last seen in 2018 DVT Prophylaxis: SQ Heparin Code Status: FULL CODE - As per discussion at bedside with the patient. PCP: Disposition: admit to telemetry, likely 1-2 more days Admission and Anticipated Discharge Date Admission Date: January 07, 2025 Subjective NAEO reports notable subjective improvement and eager to start ambulating in room she reports near resolution of sob and improvement in ble edema Physical Exam Constitutional: WD/WN, vitals as above Respiratory: normal respiratory effort, lungs clear to auscultation Cardiovascular: MAK++ rrr, 2 pitting edema Gastrointestinal (Abdomen): normal bowel sounds, soft, nontender, no hepatosplenomegaly Results & Data Results & Data Vital Signs (Past 12 Hours) Vital Signs Temp Pulse Pulse Resp BP Pulse Ox O2 Del Method 01/08/25 15:19 62 01/08/25 11:00 36.8 C 88 18 135/76 96 Room Air 01/08/25 07:50 36.9 C 79 18 149/66 H 97 Room Air 01/08/25 07:35 100 H Laboratory Results Short CBC 01/08/25 Range/Units 03:12 WBC 5.18 (4.8-10.8) K/ul Hgb 8.6 L (12.0-16.0) g/dl Hct 28.3 L (37.0-47.0) % Plt Count 396 (130-400) K/uL BMP 01/08/25 03:12 Sodium 141 Potassium 4.0 Chloride 106 Carbon Dioxide 30 BUN 11 Creatinine 0.68 Glucose 90 Calcium 9.0 Medications Administered Home Medications Medication Instructions Recorded Confirmed Last Taken amlodipine 5 mg tablet 5 mg PO QAM 11/12/18 01/07/25 01/07/25 aspirin 81 mg tablet,delayed 81 mg PO QAM 11/12/18 01/07/25 01/07/25 release (Aspir-Low) ferrous sulfate 325 mg (65 mg 325 mg PO DAILY 01/07/25 01/07/25 01/07/25 iron) tablet (Iron (ferrous sulfate)) furosemide 20 mg tablet 20 mg PO DAILY 01/07/25 01/07/25 01/07/25 lisinopril 20 mg tablet 20 mg PO HS 01/07/25 01/07/25 01/07/25 cepyeegtnqhx-fkqdxtdg-wdybbt tablet 1 tab PO DAILY 01/07/25 01/07/25 01/07/25 Active Medications Generic Name Dose Route Start Last Admin Trade Name Freq PRN Reason Stop Dose Admin Amlodipine Besylate 5 mg 01/08/25 09:00 01/08/25 08:42 Amlodipine Besylate 5 Mg Tab PO 02/07/25 08:59 5 mg QAM ULISES Administration Aspirin 81 mg 01/08/25 09:00 01/08/25 08:42 Aspirin 81 Mg Ectab PO 02/07/25 08:59 81 mg QAM ULISES Administration Ferrous Sulfate 325 mg 01/08/25 09:00 01/08/25 08:42 Ferrous Sulfate 325 Mg Tab PO 02/07/25 08:59 325 mg DAILY ULISES Administration Furosemide 40 mg 01/08/25 09:00 01/08/25 08:46 Furosemide 40 Mg/4 Ml Vial IV 02/07/25 08:59 40 mg DAILY ULISES Administration Heparin Sodium (Porcine) 5,000 units 01/07/25 21:00 01/08/25 08:46 Heparin Sod 5,000 Unit/0.5 Ml Vial SQ 02/06/25 20:59 5,000 units Q12 ULISES Administration Ceftriaxone Sodium 1,000 mg in 50 mls @ 100 mls/hr 01/08/25 14:00 01/08/25 15:51 Rocephin IV 01/13/25 13:59 Infused Q24H ULISES Infusion Lisinopril 10 mg 01/07/25 21:00 01/07/25 20:49 Lisinopril 10 Mg Tab PO 02/06/25 20:59 10 mg HS ULISES Administration Metoprolol Succinate 12.5 mg 01/08/25 09:00 01/08/25 08:42 Metoprolol Succ 25mg Ext Rel Tab PO 02/07/25 08:59 12.5 mg QAM ULISES Administration Potassium Chloride 20 meq 01/08/25 11:30 01/08/25 11:37 Potassium Chloride Crtab 20 Meq Tabcr PO 02/07/25 11:29 20 meq QAM ULISES Administration (1) Congestive heart failure Heart failure type: unspecified
[2025-01-09 07:05] LABS: Hematocrit (blood only) 30.2 % (37.0-47.0); Hemoglobin 9.3 g/dl (12.0-16.0); Mean Corpuscular Hemoglobin 25.3 pg (25.0-34.0); Mean Corpuscular Hgb Conc 30.8 g/dL (32.0-36.0); Mean Corpuscular Volume 82.1 fL (80.0-100.0); Mean Platelet Volume 9.6 fL (9.4-12.4); Platelet Count 412 K/uL (130-400); RDW Coefficient of Variation 17.4 % (11.5-14.5); RDW Standard Deviation 47.7 fL (36.4-46.3); Red Blood Count 3.68 M/uL (4.20-5.40)
[2025-01-09 07:31] LABS: BUN Creatinine Ratio 18.1 (10-20); Calcium 8.9 mg/dl (8.6-10.3); Creatinine Clr Calc Pharmacy 38.9 ml/min; Phosphorus 3.7 mg/dl (2.5-4.9); Potassium 4.2 mmol/L (3.5-5.1)
[2025-01-09 11:37] VITALS: BP 111/68; TEMP 97.7
--- NOTE | 2025-01-09 11:46 | Cardiology Progress Note ---
Date of Service January 09, 2025 Assessment & Plan (1) Acute heart failure with preserved ejection fraction: (2) Aortic stenosis: (3) Murmur: (4) ASCVD (arteriosclerotic cardiovascular disease): (5) Elevated troponin: (6) Iron deficiency anemia: (7) HTN, goal below 140/80: (8) Dyslipidemia, goal LDL below 70: Plan 01/08/25 89-year-old female presenting with signs and symptoms suggesting acute decompensated congestive heart failure occurring in the setting of probable significant aortic valve stenosis. Patient with known underlying ASCVD with remote coronary intervention, undefined iron deficiency anemia. High- sensitivity troponin mildly elevated (18.4 -> 18.6 -> 20.4 -> 19.6 pg/mL). EKG abnormal though without new/acute ST segment change. Resting echocardiography completed, pending interpretation Recommendations: * Continue IV furosemide at 40 mg/day * Supplement potassium orally * Continuous telemetry monitoring * Low dose metoprolol succinate added this admission * Lisinopril dosing decreased this admission. * Continue aspirin 81 mg/day * Future referral [place]atheter [place] [facility] [place]. * Workup of iron deficiency anemia, asymptomatic UTI and possible pneumonia as per Hospitalist Service 01/09/25: -HFpEF with severe and left pleural effusion -HTN -interval improvement in volume status with diuresis since admission -Edema and SOB improved per patient -Not requiring supplemental O2 -Received additional dose of IV furosemide 40 mg this morning. -reduce lisinopril further to 5 mg daily -Continue ASA, metoprolol, amlodipine. -Would recommend furosemide 40 mg on discharge (Prior home dose was 20 mg) -recommend 2 step to monitor for hypoxia with exertion -patient agreeable to meeting with valve clinic and will be arranged on f/u Case discussed with Dr. Meza I spent a total of 40 minutes on the date of service in preparation, delivery, and documentation of the care provided to this patient, excluding any time spent in the performance of separately billed services. Arabella Hodges PA-C Department of Cardiology, [facility] This chart was completed in part utilizing Speech Voice Recognition Software. Grammatical errors, random word insertions, pronoun errors, and incomplete sentences are an occasional consequence of this system due to software limitations, ambient noise, and hardware issues. Any formal questions or concerns about the content, text, or information contained within the body of th is dictation should be directly addressed to the provider for clarification. Admission and Anticipated Discharge Date Admission Date: January 07, 2025 Supervising Physician Co-Signing Physician Notes I have personally performed a history and physical examination on the patient. I have reviewed the advance practitioner's documentation, and I agree with, and take responsibility for the plan of care. 89-year-old female seen and examined at bedside. Congestive heart failure with large bilateral pleural effusions noted on admission. Clinically improved with IV diuresis since admission. Echocardiogram confirming presence of severe aortic valve stenosis, severe mitral regurgitation, and severe pulmonary hypertension. Transition from IV furosemide to oral furosemide 40 mg daily. (Previous outpatient dose 20 mg daily prior to admission). Further reduce lisinopril to 5 mg daily in the setting of severe calcific aortic valve stenosis. Consider discontinuation of lisinopril in the future. Outpatient [facility] valve clinic referral to consider TAVR implantation. Continue metoprolol, amlodipine, and aspirin as ordered. I spent a total of 35 minutes on the date of service in preparation, delivery, and documentation of the care provided to this patient, excluding any time spent in the performance of separately billed services. Todd Meza DO, [facility] Subjective Patient resting in bed. Family at bedside. She reports her symptoms have greatly improved since admission. SOB improved. Able to ambulate from bed to bathroom this morning. Not requiring supplemental O2. Hoping to go home. No chest pain or dizziness. Review of Systems Review of Systems: All systems reviewed & are unremarkable except as noted in HPI & below Physical Exam Physical Exam: General: A&Ox3. NAD. HENT: Normocephalic. Atraumatic. Eyes: PER. Conjunctiva pink, sclera pale. Neck: Transmitted systolic murmur, ? carotid bruits. JVD. HJR. Heart: Regular at 76 bpm. Grade III/ systolic ejection murmur. Lungs: Diminished. Left basilar rales. No wheeze. Abdomen: +BS. Soft. Nontender. No masses or organomegaly. Extremities: Trace to 1+ lower extremity edema. No cyanosis Limited neurological examination is without focal deficits. Pulses: Posterior tibial=1/4. Results & Data Vital Signs (Past 12 Hours) Vital Signs Temp Pulse Pulse Resp BP BP Pulse Ox 01/09/25 10:25 76 01/09/25 07:28 36.6 C 73 16 129/71 95 01/09/25 03:22 36.9 C 68 16 141/44 H 95 01/09/25 00:01 73 O2 Del Method 01/09/25 10:25 01/09/25 07:28 Room Air 01/09/25 03:22 Room Air 01/09/25 00:01 Laboratory Results CBC 01/09/25 Range/Units 06:41 WBC 4.70 L (4.8-10.8) K/ul RBC 3.68 L (4.20-5.40) M/uL Hgb 9.3 L (12.0-16.0) g/dl Hct 30.2 L (37.0-47.0) % Plt Count 412 H (130-400) K/uL Comprehensive Metabolic Panel 01/09/25 Range/Units 06:41 Sodium 140 (136-145) mmol/L Potassium 4.2 (3.5-5.1) mmol/L Chloride 107 (98-107) mmol/L Carbon Dioxide 30 (21-32) mmol/L BUN 13 (6-23) mg/dl Creatinine 0.72 (0.6-1.2) mg/dl Glucose 93 (70-99(Fasting)) mg/dl Calcium 8.9 (8.6-10.3) mg/dl Intake and Output 01/08/25 01/09/25 01/09/25 22:59 06:59 14:59 Intake Total 91.667 / 560.000 60 / 560.000 Output Total 700 / 700 Balance -608.333 / -140.000 60 / -140.000 Intake: IV 41.667 / 50.000 cefTRIAXone SODIUM 1,000 mg In 41.667 / 50.000 50 ml @ 100 mls/hr IV Q24H [facility] Rx#:[id number] Oral 50 / 510 60 / 510 Output: Urine Amount (Catheter) 700 / 700 External 700 / 700 Other: # Unmeasured Voids 1 1 Weight 46.5 kg Weight Measurement Method Built in [facility] Diagnostic Findings Telemetry reviewed: NSR in the 70-80's Medications Administered Current Inpatient Medications Acetaminophen (Acetaminophen 325 Mg Tab) 650 mg PO Q4H PRN PRN Reason: Pain or Fever Stop: 02/06/25 17:49 Amlodipine Besylate (Amlodipine Besylate 5 Mg Tab) 5 mg PO QAM [facility] Stop: 02/07/25 08:59 Last Admin: 01/09/25 08:43 Dose: 5 mg Aspirin (Aspirin 81 Mg Ectab) 81 mg PO QAM [facility] Stop: 02/07/25 08:59 Last Admin: 01/09/25 08:43 Dose: 81 mg Ferrous Sulfate (Ferrous Sulfate 325 Mg Tab) 325 mg PO DAILY [facility] Stop: 02/07/25 08:59 Last Admin: 01/09/25 08:42 Dose: 325 mg Furosemide (Furosemide 40 Mg/4 Ml Vial) 40 mg IV DAILY [facility] Stop: 02/07/25 08:59 Last Admin: 01/09/25 08:44 Dose: 40 mg Heparin Sodium (Porcine) (Heparin Sod 5,000 Unit/0.5 Ml Vial) 5,000 units SQ Q12 [facility] Stop: 02/06/25 20:59 Last Admin: 01/09/25 08:46 Dose: Not Given Ceftriaxone Sodium (Rocephin) 1,000 mg in 50 mls @ 100 mls/hr IV Q24H [facility] Stop: 01/13/25 13:59 Last Infusion: 01/08/25 15:51 Dose: Infused Lisinopril (Lisinopril 10 Mg Tab) 10 mg PO HS [facility] Stop: 02/06/25 20:59 Last Admin: 01/08/25 20:31 Dose: 10 mg Metoprolol Succinate (Metoprolol Succ 25mg Ext Rel Tab) 12.5 mg PO QAM [facility] Stop: 02/07/25 08:59 Last Admin: 01/09/25 08:43 Dose: 12.5 mg Polyethylene Glycol (Polyethylene (Miralax) 17 Gm Pack) 17 gm PO DAILY PRN PRN Reason: Constipation Stop: 02/06/25 17:49 Potassium Chloride (Potassium Chloride Crtab 20 Meq Tabcr) 20 meq PO QAM [facility] Stop: 02/07/25 11:29 Last Admin: 01/09/25 08:44 Dose: 20 meq (2) Aortic stenosis Cardiac valve disease etiology: nonrheumatic Qualified Code(s): I35.0 - Nonrheumatic aortic (valve) stenosis
--- NOTE | 2025-01-09 13:46 | Discharge Summary ---
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 ECHO revealed severe aortic stenosis and severe mitral calcification with mild stenosis and severe regurgitation. PSAP 70-80mmhg #Severe aortic stenosis #Severe mitral annular calcification velocity 4.7-5.2m/s, mean gradient 45-58mmhg, valve area 0.56cm^2 Cardiology on consult: will need future referral for valve replacement #Acute on chronic heart failure with preserved EF #Demand ischemia CXR findings include mild cardiomegaly with pulmonary vascular congestion, opacity at left base EF 65-70% BNP 872, elevated trop iso exacerbation Cardiology following: continue lasix 40mg daily IV Continue reduced dose lisinopril Continue BB Daily I/Os FR 1500mL daily #Abnormal UA patient reporting intermittent irritation nitrite positive with bacteria, will treat for 3 days #Possible PNA CXR findings included opacity at left base - could be fluid vs pneumonia Patient reports productive cough, likely 12/2 pulm edema Procalcitonin normal #Elevated troponin Initial troponin 18.4 likely demand iso HFpEF exacerbation #Iron deficiency anemia Labs demonstrate anemia with RBC 3.97, Hgb 9.9, Hct 32.8 Outpatient iron studies reviewed with iron 17, TIBC 317, ferritin 31 Continue ferrous sulfate as prescribed by outpatient PCP, would consider IV in future but will avoid at this time iso overload #Hypertension Continue amlodipine 5mg reduced dosing of lisinopril this admission, 20 to 10mg daily #History of maltoma s/p radiation therapy and currently under surveillance Follows with Heme/Onc last seen in 2018 #Moderate malnutrition weight loss 14% over 6 months, encourage snacks and po intake Notes For Next Care Provider Medication Changes From Visit Reduced lisinopril 5mg qhs Increased Furosemide 40mg daily Start Metoprolol 12.5mg daily Start Potassium supplement 20meq daily Admission HPI Per Admitting Provider 89 year old female with PMH significant for CAD, HTN, HLD, GERD, LE edema, and history of maltoma s/p radiation therapy who presented to the ED today with SOB and edema x2 weeks. History obtained from patient and son/daughter in law. She reports SOB with exertion, orthopnea, and worsening LE edema for the last two weeks. She also notes an intermittent cough with phlegm and runny nose only when bending over for the last two weeks as well. Denies chest pain, headache, dizziness, sore throat, N/V/D, urinary symptoms, hematuria, hematochezia. Her daughter in law notes that she has a valve issue and recently switched from [facility] to [facility] in [place]. Discharge Exam Constitutional WD/WN, vitals as above Respiratory normal respiratory effort, lungs clear to auscultation Gastrointestinal (Abdomen) normal bowel sounds, soft, nontender, no hepatosplenomegaly Updated Medication List Medication Instructions Recorded Confirmed Type amlodipine 5 mg tablet 5 mg PO QAM 11/12/18 01/07/25 History aspirin 81 mg tablet,delayed 81 mg PO QAM 11/12/18 01/07/25 History release (Aspir-Low) ferrous sulfate 325 mg (65 mg 325 mg PO DAILY 01/07/25 01/07/25 History iron) tablet (Iron (ferrous sulfate)) [id number]-[id number]-mzxovm tablet 1 tab PO DAILY 01/07/25 01/07/25 History furosemide 20 mg tablet 40 mg (2 x 20 mg) PO DAILY 30 days 01/09/25 Rx #60 tabs lisinopril 5 mg tablet 5 mg PO HS 30 days #30 tabs 01/09/25 Rx metoprolol succinate 25 mg 12.5 mg (1/2 x 25 mg) PO QAM 30 01/09/25 Rx tablet,extended release 24 hr days #15 tabs potassium chloride 20 mEq 20 meq PO QAM 30 days #30 tabs 01/09/25 Rx tablet,extended release(part/cryst) Hospital Stay Data Consultations 01/07/25 14:24 ED Decision to Admit Stat 01/07/25 17:50 Consult Cardiology Routine Pending Results Patient Have Any Pending Studies at Discharge: No Discharge Instructions Given to Patient (Per Discharging Provider) You were admitted for shortness of breath and noted to have acute heart failure exacerbation as well as a severely stenotic aortic valve. You were given IV water pill which helped reduce your swelling and improve your breathing. The following medications were changed: -reduce lisinopril to 5 mg daily -start metoprolol 12.5mg daily -Start potassium supplement 20meq daily -Increase lasix to 40mg daily -plan for referral to valve clinic Total Time Total Time Spent Total Time Spent (In Minutes): 45
[2025-01-09 16:57] VITALS: PULSE 87; RESP 17; O2SAT 95
[2025-01-09] MEDS ORDERED: lisinopril 5 MG TAB PO SCH (21:00)
== END 2025-01-09 17:32 | disposition home health service (06) | DRG 291 ==
LOC: ED 12:37 → 2S 14:59 → SUATTDRO 14:59 → 2S 17:22

== ENCOUNTER 2025-03-30 22:18 | Inpatient (IN) ==
--- NOTE | 2025-03-30 22:56 | Emergency Department Note ---
Impression & Plan Closed hip fracture Admission ED Provider Note HPI: History obtained from patient and patient's at the bedside. The patient is a 89-year-old female who presents the emergency department the chief complaint of left hip pain after ground-level fall. Patient stated she was getting out of her recliner chair when she went to kick in the reclining portion of the chair and lost her balance and fell onto her left hip. Patient complains of left hip pain left shoulder pain on arrival. Patient denies any head injury, denies any loss of consciousness. Otherwise on arrival the patient is alert, she is hemodynamically stable, she appears to be in no acute distress. Motor and sensory function is intact distally in the left foot. ROS: - Per HPI Differential Diagnosis: Hip fracture, pelvic fracture, hip dislocation, hip contusion, proximal humerus fracture, shoulder dislocation, clavicle fracture, amongst other potential pathologies. *Outpatient medications and allergy history reviewed. PE: General: Alert, frail-appearing, no acute distress HEENT: Normocephalic, trachea midline Eyes: Extraocular eye movement is intact, no scleral erythema Pulmonary: Clear to auscultation bilaterally, no wheezing Cardio: Regular rate and rhythm GI: Abdomen is soft to palpation : No suprapubic tenderness MSK: Unable to flex at the left hip secondary to pain, motor and sensory function is intact distally left foot Skin: No evidence of rash Neuro: Alert, no focal deficits Psychiatric: Cooperative INDEPENDENT INTERPRETATIONS: diagnostic cardiac sonographer: (As interpreted by myself): - An order was placed for continuous cardiac monitoring - Patient was noted to be in sinus rhythm with a rate of 70 EKG: (As interpreted by myself): Rate: 66 Rhythm: Normal sinus rhythm Intervals: Within normal limits ST changes: No ST elevation Time: 2328 Interventions provided in ED: - IV morphine, IV Zofran Medical Decision Making: IV was established and lab work obtained, patient was placed on vp global. Lab work shows no leukocytosis, hemoglobin is stable at 10.5, platelet count is normal, CMP does not show any evidence of any critical findings. X-ray imaging of the left hip shows evidence of fracture. X-ray imaging of the left shoulder per my interpretation shows prosthesis without any obvious fractures. Patient has good range of motion of the left shoulder on my exam. I informed the patient and her at the bedside of the above findings, patient is in agreement for admission. Routine orthopedics consultation was placed, service was notified via [place] text (Dr. Monsivais). Patient was placed for admission to the [facility] hospitalist service (Dr. Cintron) in stable condition. Consultants/Discussions held with other healthcare providers: - Hospitalist, Dr. Cintron. - Orthopedics, Dr. Monsivais. Disposition discussion held by myself with: - Patient and at bedside Diagnosis: 1. Left hip fracture, acute 2. 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 (RADIATION [place]) Lyme disease CAUSED BLOOD INFECTION 2017 Hyperlipidemia HX OF Surgical History History of cataract surgery LEFT H/O shoulder surgery LEFT SHOULDER REPLACEMENT History of cardiac cath X 2 1979' (NO STENTS) Family History Mother Family history of diabetes mellitus Social History Smoking Status: Never smoker Second Hand Exposure: No; Do You Dip or Chew Tobacco: No; Hx Alcohol Use: No Hx Substance Use: No Preferred Language: Serbian Communication Ability: Effective Water Tender Required: No Beliefs That Will Affect Care: None Current Living Situation: Family Current Living Situation Comment: LIVES WITH SON Feels Safe at Home: Yes Assistive Devices: None Allergies Allergies Allergy/AdvReac Type Severity Reaction Status Date / Time Iodinated Contrast Media Allergy Intermediate HIVES Verified 12/07/18 08:40 Penicillins Allergy Intermediate RASH Verified 12/07/18 08:40 Home Meds Home Medications Medication Instructions Recorded Confirmed amlodipine 5 mg tablet 5 mg PO QAM 11/12/18 03/30/25 ferrous sulfate 325 mg (65 mg 325 mg PO [facility] 01/07/25 03/30/25 iron) tablet (Iron (ferrous sulfate)) [id number]-pgutpohb-czlexh tablet 1 tab PO [facility] 01/07/25 03/30/25 aspirin 81 mg tablet,delayed 81 mg PO [facility] 03/30/25 03/30/25 release atorvastatin 20 mg tablet 20 mg PO QA 03/30/25 03/30/25 furosemide 40 mg tablet 40 mg PO [facility] 03/30/25 03/30/25 lisinopril 5 mg tablet 5 mg PO [facility] 03/30/25 03/30/25 metoprolol succinate 25 mg 12.5 mg PO QA 03/30/25 03/30/25 tablet,extended release 24 hr potassium chloride 20 mEq 20 meq PO [facility] 03/30/25 03/30/25 tablet,extended release(part/cryst) Results & Data (ED) Vital Signs Vital Signs - 24 hr 03/30/25 22:23 03/30/25 22:29 03/30/25 22:30 Temperature 36.7 C 36.7 C Temperature Source Oral Oral Pulse Rate 64 62 Pulse Rate [Right Finger] 64 Respiratory Rate 18 22 Respiratory Effort / Characteristics Non-Labored Spontaneous Non-Labored Spontaneous Respiratory Depth Normal Normal Respiratory Pattern Regular Regular Blood Pressure 153/68 H Blood Pressure [Right Arm] 153/68 H Blood Pressure Mean 96 Blood Pressure Mean [Right Arm] 96 Pulse Oximetry 98 98 Oxygen Delivery Method Room Air Room Air Sepsis Recent Fever Within 48 Hours No Sepsis New/Unexplained Change in Mental Status No Sepsis Action Taken by Nursing No Action Required 03/30/25 23:00 Temperature Temperature Source Pulse Rate 65 Pulse Rate [Right Finger] Respiratory Rate 16 Respiratory Effort / Characteristics Respiratory Depth Respiratory Pattern Blood Pressure Blood Pressure [Right Arm] Blood Pressure Mean Blood Pressure Mean [Right Arm] Pulse Oximetry 94 Oxygen Delivery Method Room Air Sepsis Recent Fever Within 48 Hours Sepsis New/Unexplained Change in Mental Status Sepsis Action Taken by Nursing Laboratory Data 03/30/25 22:30 03/30/25 22:30 Lab Results 03/30/25 Range/Units 22:30 WBC 6.69 (4.8-10.8) K/ul RBC 4.04 L (4.20-5.40) M/uL Hgb 10.5 L (12.0-16.0) g/dl Hct 33.9 L (37.0-47.0) % MCV 83.9 (80.0-100.0) fL MCH 26.0 (25.0-34.0) pg MCHC 31.0 L (32.0-36.0) g/dL RDW Std Deviation 66.0 H (36.4-46.3) fL RDW Coeff of Donna 22.6 H (11.5-14.5) % Plt Count 327 (130-400) K/uL MPV 9.8 (9.4-12.4) fL Immature Gran % (Auto) 0.7 % Neut % (Auto) 77.6 % Lymph % (Auto) 12.0 % [place] % (Auto) 5.4 % Eos % (Auto) 3.1 % Baso % (Auto) 1.2 % Neut # (Auto) 5.19 (1.40-6.50) K/uL Lymph # (Auto) 0.80 L (1.20-3.40) K/uL [place] # (Auto) 0.36 (0.11-0.59) K/uL Eos # (Auto) 0.21 (0.00-0.50) K/uL Baso # (Auto) 0.08 (0.00-0.20) K/uL Immature Gran # (Auto) 0.05 (0.01-0.20) K/uL Polychromasia 1+ Anisocytosis Present Ovalocytes 1+ PT 11.1 (9.0-12.0) Seconds INR 1.0 (0.9-1.1) Sodium 138 (136-145) mmol/L Potassium 3.9 (3.5-5.1) mmol/L Chloride 102 (98-107) mmol/L Carbon Dioxide 29 (21-32) mmol/L Anion Gap 7 (3-11) BUN 21 (6-23) mg/dl Creatinine 0.86 (0.6-1.2) mg/dl Est Cr Clr Drug Dosing 32.3 ml/min eGFR 64.53 BUN/Creatinine Ratio 24.4 H (10-20) Glucose 107 H (70-99(Fasting)) mg/dl Calcium 9.2 (8.6-10.3) mg/dl Total Bilirubin 0.4 (0.2-1.0) mg/dl AST 30 (13-39) U/L ALT 20 (7-52) U/L Alkaline Phosphatase 68 (34-104) U/L Total Protein 7.8 (6.0-8.3) gm/dl Albumin 3.7 (3.4-5.0) gm/dl Globulin 4.1 H (2.5-4.0) gm/dl Albumin/Globulin Ratio 0.9 (0.9-2) Administered Medications Discontinued Medications Morphine Sulfate (Morphine Sulfate 4 Mg/Ml 1 Ml Carp\Vial) 4 mg IV NOW STA Stop: 03/30/25 22:56 Last Admin: 03/30/25 23:07 Dose: 4 mg Documented By: JOHNSON Ondansetron HCl (Ondansetron Inj 2 Mg/Ml 2 Ml Vial) 4 mg IV NOW STA Stop: 03/30/25 22:56 Last Admin: 03/30/25 23:08 Dose: 4 mg Documented By: JOHNSON Discharge Plan Visit Data Chief Complaint: Hip Pain Stated Complaint: Fall, L Hip Pain ED Provider: Pancho Borrego Discharge Problem: Closed hip fracture Patient Disposition: Admitted As Inpatient Condition: Fair Forms Stand Alone Forms: [facility] Prescriptions Prescriptions: No Action amlodipine 5 mg Tablet 5 mg PO QAM furosemide 40 mg tablet 40 mg PO QAM aspirin [Aspir-Low] 81 mg Tablet,Delayed Release (Dr/Ec) 81 mg PO QAM potassium chloride 20 mEq tablet,ER particles/crystals 20 meq PO QAM metoprolol succinate 25 mg tablet extended release 24 hr 12.5 mg PO QAM lisinopril 5 mg tablet 5 mg PO QAM atorvastatin 20 mg tablet 20 mg PO QAM ferrous sulfate [Iron (ferrous sulfate)] 325 mg (65 mg iron) Tablet 325 mg PO QAM qzryfnsptsnj-shfyrevy-lchemy Tablet 1 tab PO QAM Referrals Referrals: Nimo Robles MD [Primary Care Provider] - Discharge Problem: Closed hip fracture Qualifiers: Encounter type: initial encounter Laterality: left Qualified Code(s): S72.002A - Fracture of unspecified part of neck of left femur, initial encounter for closed fracture
[2025-03-30 23:07] LABS: Hematocrit (blood only) 33.9 % (37.0-47.0); Hemoglobin 10.5 g/dl (12.0-16.0); Immature Granulocytes # (auto) 0.05 K/uL (0.01-0.20); Immature Granulocytes % (auto) 0.7 %; Mean Corpuscular Hemoglobin 26.0 pg (25.0-34.0); Mean Corpuscular Volume 83.9 fL (80.0-100.0); Platelet Count 327 K/uL (130-400); RDW Standard Deviation 66.0 fL (36.4-46.3); Red Blood Count 4.04 M/uL (4.20-5.40); White Blood Count 6.69 K/ul (4.8-10.8)
[2025-03-30] MEDS: MoRPHine SULFATE 4 MG/ML 1 ML CARP\\VIAL IV STA (23:07)
[2025-03-30] MEDS: ONDANSETRON INJ 2 MG/ML 2 ML VIAL IV STA (23:08)
[2025-03-30 23:24] LABS: Alanine Aminotransferase 20.0 U/L (7-52); Albumin Globulin Ratio 0.9 (0.9-2); Alkaline Phosphatase 68.0 U/L (34-104); Anion Gap 7.0 (3-11); Bilirubin,Total 0.4 mg/dl (0.2-1.0); Blood Urea Nitrogen 21.0 mg/dl (6-23); Calcium 9.2 mg/dl (8.6-10.3); Carbon Dioxide 29.0 mmol/L (21-32); Chloride 102.0 mmol/L (98-107); Creatinine Clr Calc Pharmacy 32.3 ml/min; Globulin 4.1 gm/dl (2.5-4.0); Glucose 107.0 mg/dl (70-99(Fasting)); Potassium 3.9 mmol/L (3.5-5.1); Sodium 138.0 mmol/L (136-145); Total Protein 7.8 gm/dl (6.0-8.3)
[2025-03-30 23:40] LABS: INR 1.0 (0.9-1.1); Prothrombin Time 11.1 Seconds (9.0-12.0)
[2025-03-30 23:44] LABS: Anisocytosis Present; Ovalocytes 1+; Polychromasia 1+
--- NOTE | 2025-03-31 00:09 | XRay Report ---
Exam(s): XR LEFT SHOULDER, 2+ views EXAM: XR Left Shoulder Complete, 2 or More Views CLINICAL HISTORY: Reason for exam: L shoulder pain s/p fall. TECHNIQUE: Two or more views of the left shoulder. COMPARISON: 02/11/18 FINDINGS: Bones/joints: Shoulder prosthesis without evidence of fracture or dislocation. Suggestion of some erosive changes in the proximal humerus. Degenerative changes of the AC joint. Osteopenia. Soft tissues: No radiodense foreign body. IMPRESSION: Shoulder prosthesis without evidence of fracture or dislocation. Suggestion of some erosive changes/resorption in the proximal humerus. Electronically signed by: Graciela Varner M.D. 03/31/25 00:08 AM
--- NOTE | 2025-03-31 00:11 | XRay Report ---
Exam(s): XR HIP + PELVIS, 1 view EXAM: XR Left Hip With Pelvis When Performed, 2 or 3 Views CLINICAL HISTORY: Reason for exam: L hip pain s/p fall. TECHNIQUE: Two or three views of the left hip with pelvis when performed. COMPARISON: No relevant prior studies available. FINDINGS: Bones/joints: Comminuted and displaced intertrochanteric fracture. Degenerative changes of the hips. Soft tissues: No radiodense foreign body. Vasculature: Vascular calcifications. IMPRESSION: Comminuted and displaced left intertrochanteric fracture. Electronically signed by: Graciela Varner M.D. 03/31/25 00:10 AM
--- NOTE | 2025-03-31 01:28 | History & Physical Report ---
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 Patient lives with her son. Ambulates without support. Patient states she was getting out of the recliner chair when went slipped and lost ba leland and fell onto her left side. Did not hit her head. No loss of consciousness. But she felt like she broke her hip and did not get up. Denies any headache. No runny nose or sore throat. No cough. No earache. No chest pain. No shortness of breath. No nausea. No abdominal pain. Somewhat constipated. Stools are always black because of iron pills. Micturating okay. Hemodynamics are okay. Closed hip fracture Status post mechanical fall and left hip fracture Usually ambulates without support Labs are okay. Because of cardiac history will consult cardiology for preop evaluation Pain control N.p.o., gentle fluids Ortho consult in a.m. Chronic heart rate with preserved ejection fraction Echo in 12/2024 showed critically severe aortic stenosis Severe mitral annular calcification. Severe mitral regurgitation. Severe pulmonary hypertension Holding Lasix and potassium supplement for now Getting gentle fluids Monitor for volume overload Hypertension Continue Metropol succinate and amlodipine Holding Lasix and lisinopril for now Will monitor Hyperlipidemia On statin Iron deficiency anemia On iron supplements Hemoglobin 10.5 seems around baseline History of MALToma S/p radiation therapy Last seen heme-onc in 2018 DVT prophylaxis SCDs on right leg Further anticoagulation as per Orthopedics CODE STATUS. 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 Patient lives with her son. Ambulates without support. Patient states she was getting out of the recliner chair when went slipped and lost balance and fell onto her left side. Did not hit her head. No loss of co nsciousness. But she felt like she broke her hip and did not get up. Denies any headache. No runny nose or sore throat. No cough. No earache. No chest pain. No shortness of breath. No nausea. No abdominal pain. Somewhat constipated. Stools are always black because of iron pills. Micturating okay. Hemodynamics are okay. Past medical history. As mentioned above. Past surgical history. Removal of parotid gland. Social history. No smoking. No alcohol. No drug use. Family history. Brother had diabetes. Mother had diabetes. Allergies Allergy/AdvReac Type Severity Reaction Status Date / Time Iodinated Contrast Media Allergy Intermediate HIVES Verified 12/07/18 08:40 Penicillins Allergy Intermediate RASH Verified 12/07/18 08:40 Home Medications Medication Instructions Recorded Confirmed Type amlodipine 5 mg tablet 5 mg PO [facility] 11/12/18 03/30/25 History ferrous sulfate 325 mg (65 mg 325 mg PO [facility] 01/07/25 03/30/25 History iron) tablet (Iron (ferrous sulfate)) [id number]-svbxzctv-swsnfc tablet 1 tab PO [facility] 01/07/25 03/30/25 History aspirin 81 mg tablet,delayed 81 mg PO [facility] 03/30/25 03/30/25 History release atorvastatin 20 mg tablet 20 mg PO [facility] 03/30/25 03/30/25 History furosemide 40 mg tablet 40 mg PO [facility] 03/30/25 03/30/25 History lisinopril 5 mg tablet 5 mg PO QA 03/30/25 03/30/25 History metoprolol succinate 25 mg 12.5 mg PO [facility] 03/30/25 03/30/25 History tablet,extended release 24 hr potassium chloride 20 mEq 20 meq PO [facility] 03/30/25 03/30/25 History tablet,extended release(part/cryst) Past Med/Surg History Problem List (Updated 03/30/25 @ 23:41 by Pancho Borrego DO) Closed hip fracture (Acute) Dyslipidemia, goal LDL below 70 HTN, goal below 140/80 ASCVD (arteriosclerotic cardiovascular disease) Murmur Aortic stenosis Hypertension Iron deficiency anemia Elevated troponin Congestive heart failure (Acute) Medical History Pulmonary edema Weakness Encounter for pre-operative examination Encounter for pre-operative examination Shoulder fracture History of IBS 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 (RADIATION [place]) Lyme disease CAUSED BLOOD INFECTION 2018 Hyperlipidemia HX OF Surgical History History of cataract surgery LEFT H/O shoulder surgery LEFT SHOULDER REPLACEMENT History of cardiac cath X 2 1979' (NO STENTS) Family History Mother Family history of diabetes mellitus Social History Smoking Status: Never smoker Second Hand Exposure: No; Do You Dip or Chew Tobacco: No; Hx Alcohol Use: No Hx Substance Use: No Preferred Language: Bulgarian Communication Ability: Effective 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 ENT- oropharynx clear Neck- supple, no JVD. Lungs- clear to auscultation no wheezing or crackles Heart- regular rate and rhythm; ESM murmur present , no gallop. Abdomen- normal bowel sounds, soft, nontender, no distension. Extremities-Left leg shortened and externally rotated. can wiggle left toes, sensations intact Neuro- alert, oriented PERRL, no facial palsy; no dysarthria;obeys simple commands Results & Data Results & Data Vital Signs (Past 12 Hours) Vital Signs Temp Pulse Pulse Resp BP BP Pulse Ox 03/31/25 00:03 60 21 136/56 L 93 03/30/25 23:00 65 16 94 03/30/25 22:30 62 03/30/25 22:29 36.7 C 64 22 153/68 H 98 03/30/25 22:23 36.7 C 64 18 153/68 H 98 O2 Del Method 03/31/25 00:03 Room Air 03/30/25 23:00 Room Air 03/30/25 22:30 03/30/25 22:29 Room Air 03/30/25 22:23 Room Air Diagnostic Findings Laboratory Results WBC 6.69 K/ul (4.8-10.8) 03/30/25 22: RBC 4.04 M/uL (4.20-5.40) L 03/30/25 22:30 Hgb 10.5 g/dl (12.0-16.0) L 03/30/25 22:30 Hct 33.9 % (37.0-47.0) L 03/30/25 22: MCV 83.9 fL (80.0-100.0) 03/30/25 22: MCH 26.0 pg (25.0-34.0) 03/30/25: MCHC 31.0 g/dL (32.0-36.0) L 03/30/25: RDW Std Deviation 66.0 fL (36.4-46.3) H 03/30/25: RDW Coeff of Donna 22.6 % (11.5-14.5) H 03/30/25: Plt Count 327 K/uL (130-400) 03/30/25 22: MPV 9.8 fL (9.4-12.4) 03/30/25: Immature Gran % (Auto) 0.7 % 03/30/25: Neut % (Auto) 77.6 % 03/30/25: Lymph % (Auto) 12.0 % 03/30/25:30 [place] % (Auto) 5.4 % 03/30/25: Eos % (Auto) 3.1 % 03/30/25: Baso % (Auto) 1.2 % 03/30/25: Neut # (Auto) 5.19 K/uL (1.40-6.50) 03/30/25: Lymph # (Auto) 0.80 K/uL (1.20-3.40) L 03/30/25: [place] # (Auto) 0.36 K/uL (0.11-0.59) 03/30/25 22:30 Eos # (Auto) 0.21 K/uL (0.00-0.50) 03/30/25: Baso # (Auto) 0.08 K/uL (0.00-0.20) 03/30/25 22:30 Immature Gran # (Auto) 0.05 K/uL (0.01-0.20) 03/30/25 22:30 Polychromasia 1+ 03/30/25 22:30 Anisocytosis Present 03/30/25 22:30 Ovalocytes 1+ 03/30/25 22:30 PT 11.1 Seconds (9.0-12.0) 03/30/25 22:30 INR 1.0 (0.9-1.1) 03/30/25 22:30 Sodium 138 mmol/L (136-145) 03/30/25 22:30 Potassium 3.9 mmol/L (3.5-5.1) 03/30/25 22: Chloride 102 mmol/L (98-107) 03/30/25 22:30 Carbon Dioxide 29 mmol/L (21-32) 03/30/25 22:30 Anion Gap 7 (3-11) 03/30/25 22:30 BUN 21 mg/dl (6-23) 03/30/25 22:30 Creatinine 0.86 mg/dl (0.6-1.2) 03/30/25 22:30 Est Cr Clr Drug Dosing 32.3 ml/min 03/30/25 22:30 eGFR 64.53 03/30/25 22:30 BUN/Creatinine Ratio 24.4 (10-20) H 03/30/25 22:30 Glucose 107 mg/dl (70-99(Fasting)) H 03/30/25 22:30 Calcium 9.2 mg/dl (8.6-10.3) 03/30/25 22:30 Total Bilirubin 0.4 mg/dl (0.2-1.0) 03/30/25 22:30 AST 30 U/L (13-39) 03/30/25 22:30 ALT 20 U/L (7-52) 03/30/25 22:30 Alkaline Phosphatase 68 U/L (34-104) 03/30/25 22:30 Total Protein 7.8 gm/dl (6.0-8.3) 03/30/25 22:30 Albumin 3.7 gm/dl (3.4-5.0) 03/30/25 22: Globulin 4.1 gm/dl (2.5-4.0) H 03/30/25 22:30 Albumin/Globulin Ratio 0.9 (0.9-2) 03/30/25 22:30 Impressions Hip/Pelvis X-Ray 03/30/25 22:33 Exam(s): XR HIP + PELVIS, 1 view EXAM: XR Left Hip With Pelvis When Performed, 2 or 3 Views CLINICAL HISTORY: Reason for exam: L hip pain s/p fall. TECHNIQUE: Two or three views of the left hip with pelvis when performed. COMPARISON: No relevant prior studies available. FINDINGS: Bones/joints: Comminuted and displaced intertrochanteric fracture. Degenerative changes of the hips. Soft tissues: No radiodense foreign body. Vasculature: Vascular calcifications. IMPRESSION: Comminuted and displaced left intertrochanteric fracture. Electronically signed by: Graciela Varner M.D. 03/31/25 00:10 AM Shoulder X-Ray 03/30/25 22:33 Exam(s): XR LEFT SHOULDER, 2+ views EXAM: XR Left Shoulder Complete, 2 or More Views CLINICAL HISTORY: Reason for exam: L shoulder pain s/p fall. TECHNIQUE: Two or more views of the left shoulder. COMPARISON: 02/11/18 FINDINGS: Bones/joints: Shoulder prosthesis without evidence of fracture or dislocation. Suggestion of some erosive changes in the proximal humerus. Degenerative changes of the AC joint. Osteopenia. Soft tissues: No radiodense foreign body. IMPRESSION: Shoulder prosthesis without evidence of fracture or dislocation. Suggestion of some erosive changes/resorption in the proximal humerus. Electronically signed by: Graciela Varner M.D. 03/31/25 00:08 AM ECG Additional Comments: ECG. Normal sinus rhythm rate of 66. Left anterior fascicular block. QTc 448. Code Status & VTE Plan VTE Prophylaxis Plan VTE Prophylaxis will be ordered: Yes (1) Closed hip fracture Encounter type: initial encounter Laterality: left Qualified Code(s): S72.002A - Fracture of unspecified part of neck of left femur, initial encounter for closed fracture
[2025-03-31] MEDS ORDERED: ONDANSETRON INJ 2 MG/ML 2 ML VIAL IV PRN (02:29)
[2025-03-31] MEDS ORDERED: NITROGLYCERIN SL 0.4 MG/TAB TAB SL PRN (02:29)
[2025-03-31] MEDS: SODIUM CHLORIDE 0.9% 1,000 ML IV SCH (03:19)
[2025-03-31 04:58] LABS: Hematocrit (blood only) 30.0 % (37.0-47.0); Hemoglobin 9.5 g/dl (12.0-16.0); Immature Granulocytes # (auto) 0.03 K/uL (0.01-0.20); Immature Granulocytes % (auto) 0.4 %; Mean Corpuscular Hemoglobin 27.0 pg (25.0-34.0); Mean Corpuscular Volume 85.2 fL (80.0-100.0); Platelet Count 277 K/uL (130-400); RDW Standard Deviation 65.7 fL (36.4-46.3); Red Blood Count 3.52 M/uL (4.20-5.40); White Blood Count 8.31 K/ul (4.8-10.8)
[2025-03-31 05:17] LABS: Anion Gap 6.0 (3-11); Blood Urea Nitrogen 21.0 mg/dl (6-23); Calcium 8.8 mg/dl (8.6-10.3); Carbon Dioxide 26.0 mmol/L (21-32); Chloride 106.0 mmol/L (98-107); Creatinine Clr Calc Pharmacy 38.3 ml/min; Glucose 129.0 mg/dl (70-99(Fasting)); Magnesium 1.9 mg/dl (1.7-2.4); Potassium 4.4 mmol/L (3.5-5.1); Sodium 138.0 mmol/L (136-145)
[2025-03-31 06:06] LABS: Anisocytosis Present; Ovalocytes 1+; Polychromasia 1+
--- NOTE | 2025-03-31 08:51 | Cardiology Consultation ---
Date of Consultation March 31, 2025 Assessment & Plan (1) Preop cardiovascular exam: (2) Closed hip fracture: (3) Critical aortic valve stenosis: (4) Severe mitral regurgitation: (5) Mild mitral stenosis: (6) Diastolic congestive heart failure: (7) ASCVD (arteriosclerotic cardiovascular disease): Plan 89-year-old female admitted following a mechanical fall with resultant left hip fracture. Cardiology consultation requested for preoperative evaluation. Patient with known multivessel coronary artery disease, diastolic congestive heart failure secondary to hypertensive heart disease and valvular heart disease, critical symptomatic aortic valve stenosis via December 2024 resting echocardiogram, chart history of CVA. Functional capacity is less than 4 METS. Estimated risk of major adverse cardiac events including but not limited to intraoperative hypotension, ischemia, myocardial infarction, worsening heart failure, arrhythmias, and is high. Options of management discussed (no surgery, proceeding with surgery, referral for preoperative percutaneous balloon valvuloplasty, etc). Patient accepting associated risk. Careful intraoperative and postoperative management required. Recommend holding, discontinuing, lisinopril. Hold furosemide AM of surgery. Continue metoprolol succinate, amlodipine, and aspirin without perioperative interruption. Supervising Physician Co-Signing Physician Notes Attending attestation: Case reviewed with the advanced practitioner. I have personally performed a history and physical examination on the patient. I have reviewed the advanced practitioner's documentation on the date of service referenced in note, and I agree with, and take responsibility for the plan of care. Patient with history of chronic coronary disease, no recent angina. History of critically severe aortic valve stenosis for which outpatient assessment in valve clinic is tentatively scheduled in several weeks. Presents with mechanical fall and resultant hip fracture. Telemetry reveals stable findings, sinus rhythm in the 60s. EKG performed 03/30/2025 revealed normal sinus rhythm at 66 bpm, age- indeterminate inferior infarct pattern, stable findings. -Had cady discussion with patient. At this time, benefits of surgery including pain control, and ability to resume ambulation outweigh potential risks. -Critically severe aortic stenosis will need to be taken into account with regards to her anesthesia plan I spent a total of 20 minutes coordinating, documenting, and providing care for this patient excluding time spent in the performance of separately billed services or time spent by another provider. Boo Irizarry DO History of Present Illness Reason for Consultation: Preoperative Cardiology Consultation Requesting Physician: [facility] Service, Dr. Yunior Cintron Attending Physician: [facility] Service, Dr. Jyothi Dang MD History of Present Illness Patient was sitting in her lift chair. When she attempted to get up out of the chair she noticed that the foot rest did not go down like it was suppose to. She tried with her other foot to push it down and lost her balance, falling on to her left side. She recalls the entire episode well. There was no loss of consciousness/syncope. She did not hit her head. the patient was brought to [facility] emergency room where she was evaluated by Dr. Borrego. Imaging revealed a comminuted and displaced left intertrochanteric hip fracture for which orthopedics has been consulted, cardiology consulted to provide preoperative cardiac evaluation. The patient notes occasional episodes of left-sided chest discomfort that seem to occur without rhyme or reason. Patient describes tiring out very easily, with associated shortness of breath she describes attempting to broom the floor and needing to stop and rest after doing about a third of the room. No palpitations. No resting dyspnea. No current cough, chest congestion, orthopnea, or PND. She notes that she has no lower extremity peripheral edema in the morning, feeling puffy around dinnertime. Denies positional lightheadedness or dizziness. Denies near-syncope or syncope. No recent colds or illnesses, hospitalized in December with acute decompensated heart failure. Constipation has been a chronic issue. Stools are black glycol, on oral iron replacement therapy. No epistaxis. No hemoptysis. No hematuria. No dysuria. Past Medical and Surgical History: ASCVD. Status post plain old balloon angioplasty of the LAD in May 1992. Repeat catheterization performed in October 1992, revealing a 95% LAD lesion status post plain old balloon angioplasty. The RCA was described as a large, dominant vessel that collateralized the LAD. There was no significant obstructive disease noted in the RCA. The LM had a 30% ostial stenosis. The LCX had a 20% proximal lesion. The ramus intermedius had luminal irregularities. Critical aortic valve stenosis via December 2024 resting echocardiogram ([facility]) Hypertension, hypertensive heart disease Diastolic congestive heart failure secondary to hypertension and valvular heart disease History of CVA Dyslipidemia GERD Hiatal hernia History of MALToma status post radiation therapy Unknown kidney operation in the s at [facility]. Family History: Mother had uncontrolled diabetes status post lower extremity amputation, passing in her upper 80s. Father with a cerebral hemorrhage at the age of 46. Two brothers, both passed, one with Parkinson, one with diabetes. Social History: Nonsmoker. No smokeless tobacco. No alcohol. No illegal drug use. . Three sons. Lives in car with this with her 69-year-old son who she describes as learning disabled Allergies Allergy/AdvReac Type Severity Reaction Status Date / Time Iodinated Contrast Media Allergy Intermediate HIVES Verified 12/07/18 08:40 Penicillins Allergy Intermediate RASH Verified 12/07/18 08:40 Home Medications Medication Instructions Recorded Confirmed Type amlodipine 5 mg tablet 5 mg PO QAM 11/12/18 03/30/25 History ferrous sulfate 325 mg (65 mg 325 mg PO QAM 01/07/25 03/30/25 History iron) tablet (Iron (ferrous sulfate)) kuzeilqvnlbi-eplawmbp-mhktfq tablet 1 tab PO QAM 01/07/25 03/30/25 History aspirin 81 mg tablet,delayed 81 mg PO QAM 03/30/25 03/30/25 History release atorvastatin 20 mg tablet 20 mg PO QAM 03/30/25 03/30/25 History furosemide 40 mg tablet 40 mg PO QAM 03/30/25 03/30/25 History lisinopril 5 mg tablet 5 mg PO QAM 03/30/25 03/30/25 History metoprolol succinate 25 mg 12.5 mg PO QAM 03/30/25 03/30/25 History tablet,extended release 24 hr potassium chloride 20 mEq 20 meq PO QAM 03/30/25 03/30/25 History tablet,extended release(part/cryst) Patient History Medical History Acute heart failure with preserved ejection fraction Systolic and diastolic CHF, acute Acute UTI Other malignant lymphomas of lymph nodes of head, face, and neck (12/31/12) "Mass of the right cheek status post 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 Status post completion of radiation therapy 06/18/2013 received 3600 cGy" Pulmonary edema Weakness Encounter for pre-operative examination Encounter for pre-operative examination Shoulder fracture History of IBS 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 (RADIATION [place]) Lyme disease CAUSED BLOOD INFECTION 2018 Hyperlipidemia HX OF Surgical History History of cataract surgery LEFT H/O shoulder surgery LEFT SHOULDER REPLACEMENT History of cardiac cath X 2 1979' (NO STENTS) Family History Mother Family history of diabetes mellitus Social History Smoking Status: Never smoker Second Hand Exposure: No; Do You Dip or Chew Tobacco: No; Hx Alcohol Use: No Hx Substance Use: No Preferred Language: Danish Communication Ability: Effective 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 Physical Exam Physical Exam: General: A&Ox3. NAD. Skin: Pallor HENT: Normocephalic. Atraumatic. Eyes: PER. Conjunctiva pink, sclera pale. Neck: Transmitted systolic murmur, ? carotid bruits. Normal jugular venous distention Heart: Regular, 66 bpm. Grade III/ systolic ejection murmur. + Apical sys tolic murmur. No diastolic murmur appreciated. No rub. Lungs: Diminished. Decreased. Bibasilar rales. No wheeze. Abdomen: +BS. Soft. Nontender. No masses or organomegaly. Extremities: Trivial pretibial edema. No clubbing. No cyanosis. Limited neurological examination is without focal deficits. Pulses: Posterior tibial=1/4. Results & Data Vital Signs (Past 12 Hours) Vital Signs Temp Pulse Pulse Resp BP BP Pulse Ox 03/31/25 07:44 36.4 C L 83 18 103/63 93 03/31/25 05:54 68 03/31/25 03:00 36.4 C L 77 18 117/64 96 03/31/25 02:32 03/31/25 02:30 72 03/31/25 02:05 63 20 110/48 L 95 03/31/25 02:00 63 20 110/48 L 95 03/31/25 00:03 60 21 136/56 L 93 03/30/25 23:00 65 16 94 03/30/25 22:30 62 03/30/25 22:29 36.7 C 64 22 153/68 H 98 03/30/25 22:23 36.7 C 64 18 153/68 H 98 O2 Del Method 03/31/25 07:44 Room Air 03/31/25 05:54 03/31/25 03:00 Room Air 03/31/25 02:32 Room Air 03/31/25 02:30 03/31/25 02:05 Room Air 03/31/25 02:00 Room Air 03/31/25 00:03 Room Air 03/30/25 23:00 Room Air 03/30/25 22:30 03/30/25 22:29 Room Air 03/30/25 22:23 Room Air Laboratory Results Cardiac Enzymes 03/30/25 Range/Units 22:30 AST 30 (13-39) U/L Coagulation 03/30/25 Range/Units 22:30 PT 11.1 (9.0-12.0) Seconds CBC 03/30/25 03/31/25 Range/Units 22:30 04:35 WBC 6.69 8.31 (4.8-10.8) K/ul RBC 4.04 L 3.52 L (4.20-5.40) M/uL Hgb 10.5 L 9.5 L (12.0-16.0) g/dl Hct 33.9 L 30.0 L (37.0-47.0) % Plt Count 327 277 (130-400) K/uL Neut # (Auto) 5.19 7.29 H (1.40-6.50) K/uL Lymph # (Auto) 0.80 L 0.53 L (1.20-3.40) K/uL [place] # (Auto) 0.36 0.41 (0.11-0.59) K/uL Eos # (Auto) 0.21 0.01 (0.00-0.50) K/uL Baso # (Auto) 0.08 0.04 (0.00-0.20) K/uL Comprehensive Metabolic Panel 03/30/25 03/31/25 Range/Units 22:30 04:35 Sodium 138 138 (136-145) mmol/L Potassium 3.9 4.4 (3.5-5.1) mmol/L Chloride 102 106 (98-107) mmol/L Carbon Dioxide 29 26 (21-32) mmol/L BUN 21 21 (6-23) mg/dl Creatinine 0.86 0.73 (0.6-1.2) mg/dl Glucose 107 H 129 H (70-99(Fasting)) mg/dl Calcium 9.2 8.8 (8.6-10.3) mg/dl AST 30 (13-39) U/L ALT 20 (7-52) U/L Alkaline Phosphatase 68 (34-104) U/L Total Protein 7.8 (6.0-8.3) gm/dl Albumin 3.7 (3.4-5.0) gm/dl Intake and Output 03/30/25 03/31/25 03/31/25 22:59 06:59 14:59 Output Total 175 / 175 Balance -175 / -175 Output: Urine Amount (Catheter) 175 / 175 Matos/Indwelling 175 / 175 Other: Other Intake Source npo Weight 46.2 kg 46.4 kg Weight Measurement Method Built in [facility] Built in [facility] Diagnostic Findings January 08, 2025 TTE ([facility], Dr. Irizarry): The left ventricle is hyperdynamic. Left ventricular ejection fraction 65 to 70%. The left atrium is severely dilated. Critically severe aortic valve stenosis is present. The peak continuous-wave Doppler velocity across the aortic valve obtained from the right sternal border with a nonimaging probe was in the range of 4.7 to 5.2 m/s. Mean gradient 45 to 58 mmHg. Aortic valve area 0.56 cm. Severe mitral annular calcification Mild mitral stenosis Severe mitral regurgitation Mild tricuspid regurgitation Severe pulmonary hypertension Pulmonary artery systolic pressure estimated to be 70 to 80 mmHg. Large left pleural effusion Large right pleural effusion No prior study available at this institution for comparison Admission chest x-ray revealed congestive heart failure with small left pleural effusion and associated left lung base consolidation. Admission EKG revealed normal sinus rhythm at 66 bpm with left anterior fascicular block, possible old inferior infarct, similar appearing T wave abnormality anteriorly when compared to prior. QTc 448 ms. Continuous telemetry monitoring thus far reveals sinus throughout, heart rates predominantly in the 60s and 70s. [place]oding [place] [address] IN/OBS CONSULT LVL 5,80M Patient Type Established Diagnoses Preop cardiovascular exam Z01.810 Closed hip fracture S72.002A Encounter type: initial encounter Laterality: left Critical aortic valve stenosis I35.0 Severe mitral regurgitation I34.0 Mild mitral stenosis I05.0 Diastolic congestive heart failure I50.30 ASCVD (arteriosclerotic cardiovascular disease) I25.10 Time Spent (min) 80 Comment 60 minutes spent by Nabil Rand PA-C, [address] Irizarry (2) Closed hip fracture Encounter type: initial encounter Laterality: left Qualified Code(s): S72.002A - Fracture of unspecified part of neck of left femur, initial encounter for closed fracture
--- NOTE | 2025-03-31 09:40 | XRay Report ---
XR elbow LT min 3V routine CLINICAL HISTORY: injury, tender over olecranon COMPARISON: None FINDINGS: There is an acute minimally displaced oblique fracture with intra-articular extension prox imally at the ulna. No other fracture or dislocation seen at the left elbow. There are a few benign a ppearing superficial soft tissue calcifications at the posterior aspect proximal forearm. There is ca lcification at the triceps insertion on the olecranon, consistent with calcific tendinitis. IMPRESSION: Acute fracture proximal ulna. ACT 112: Negative or not required by law. Electronically signed by: Foreign Tapia M.D. 03/31/2025 9:38 AM
[2025-03-31] MEDS: CEROVITE ADV FORMULA TAB PO SCH (09:46)
[2025-03-31] MEDS: FERROUS SULFATE 325 MG TAB PO SCH (09:46)
[2025-03-31] MEDS: ASPIRIN 81 MG ECTAB PO SCH (09:46)
[2025-03-31] MEDS: ATORVASTATIN 20 MG TAB PO SCH (09:46)
[2025-03-31] MEDS: METOPROLOL SUCC 25MG EXT REL TAB PO SCH (09:46)
[2025-03-31] MEDS: ACETAMINOPHEN 1,000 MG/100 ML VIAL IV PRN (09:55)
--- NOTE | 2025-03-31 10:36 | Orthopedic Consultation ---
Date of Consultation March 31, 2025 Assessment & Plan (1) Closed hip fracture: Discussed injury pattern and options of care with the patient. We reviewed the risks and benefits of surgery in great detail. Patient has been evaluated for cardiology from a preoperative standpoint and she is high risk. She expressed understanding and would like to regain function and decided to proceed with surgery. Informed consent form was completed, reviewed in detail with her, and she signed the consent form. She will require close perioperative management. Continue with n.p.o. status until after surgery. Ice to the left hip. Pain management per primary service. (2) Fracture of left proximal ulna: Patient developed worsening pain and swelling in the left elbow after admission. She does have swelling and ecchymosis in this area with significant decreased range of motion. X-ray shows a proximal ulnar fracture which was reviewed with Dr. Rust. Patient is left-hand dominant and surgery was reviewed with her to regain function. She is in agreement. Open reduction internal fixation left proximal ulna fracture was included on her informed consent form which she signed as above. Ice to the left elbow. NPO. She will be heading down for surgery very shortly so did not splint her. She is propped up on a pillow and resting comfortably. Will continue to follow. Supervising Physician Co-Signing Physician Notes I saw and examined the patient, reviewed her imaging studies, formulated the above plan, and performed the substantive portion of the visit. Agree with the above note. Patient is high risk for surgery given her underlying medical comorbidities. She understands these risks and elects to proceed with surgery. Surgery is indicated to allow her to regain the ability to walk and be indep endent. Proceed to the operating room today. Readmit to the hospitalist service after surgery. History of Present Illness Attending Physician: Jyothi Dang MD History of Present Illness Haydee Azevedo is a [id number] 89-year-old female who presented to the [facility] last night with a chief complaint of left hip pain secondary to a fall that occurred while trying to get out of her chair. Her lift chair became stuck and she kicked it with the other foot and slipped resulting in the fall. Patient was evaluated in the emergency department and found to have a left intertrochanteric femur fracture and was subsequently admitted under the hospitalist service and orthopedics was consulted for management of the hip fracture. Patient is also complaining of left elbow pain, swelling, and bruising. No other pain anywhere else. Denies any numbness or tingling in her fingers but states that it is hard to move her fingers more than usual. Patient does have a history of multilevel coronary artery disease, diastolic CHF, and critical symptomatic aortic valve stenosis. She was evaluated by cardiology earlier this morning. Allergies Allergy/AdvReac Type Severity Reaction Status Date / Time Iodinated Contrast Media Allergy Intermediate HIVES Verified 12/07/18 08:40 Penicillins Allergy Intermediate RASH Verified 12/07/18 08:40 Home Medications Medication Instructions Recorded Confirmed Type amlodipine 5 mg tablet 5 mg PO QAM 11/12/18 03/30/25 History ferrous sulfate 325 mg (65 mg 325 mg PO QAM 01/07/25 03/30/25 History iron) tablet (Iron (ferrous sulfate)) fqylcrrzkubj-gzoaqbju-paeunn tablet 1 tab PO QAM 01/07/25 03/30/25 History aspirin 81 mg tablet,delayed 81 mg PO QAM 03/30/25 03/30/25 History release atorvastatin 20 mg tablet 20 mg PO QAM 03/30/25 03/30/25 History furosemide 40 mg tablet 40 mg PO QAM 03/30/25 03/30/25 History lisinopril 5 mg tablet 5 mg PO QAM 03/30/25 03/30/25 History metoprolol succinate 25 mg 12.5 mg PO QAM 03/30/25 03/30/25 History tablet,extended release 24 hr potassium chloride 20 mEq 20 meq PO QAM 03/30/25 03/30/25 History tablet,extended release(part/cryst) Patient History Medical History Acute heart failure with preserved ejection fraction Systolic and diastolic CHF, acute Acute UTI Other malignant lymphomas of lymph nodes of head, face, and neck (12/31/12) "Mass of the right cheek status post 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 Status post completion of radiation therapy 06/18/2013 received 3600 cGy" Pulmonary edema Weakness Encounter for pre-operative examination Encounter for pre-operative examination Shoulder fracture History of IBS 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 (RADIATION [place]) Lyme disease CAUSED BLOOD INFECTION 2018 Hyperlipidemia HX OF Surgical History History of cataract surgery LEFT H/O shoulder surgery LEFT SHOULDER REPLACEMENT History of cardiac cath X 2 1979' (NO STENTS) Family History Mother Family history of diabetes mellitus Social History Smoking Status: Never smoker Second Hand Exposure: No; Do You Dip or Chew Tobacco: No; Hx Alcohol Use: No Hx Substance Use: No Preferred Language: Latvian Communication Ability: Effective Crtt Required: No Beliefs That Will Affect Care: None Current Living Situation: Family Current Living Situation Comment: LIVES WITH SON Other Information That Helps Us Care for You: No Feels Safe at Home: Yes Safety Concerns: Feels Safe At This Time Assistive Devices: Glasses Physical Exam Constitutional: Resting comfortably in no distress. Pleasant. Appears to have pain in the left elbow and left groin/hip with any active range of motion. Cardiovascular: Left radial pulse 2+ Left DP pulse 1+ Musculoskeletal: Left upper extremity: Ecchymosis and swelling noted to the lateral and posterior elbow. Associated tenderness in this area. Range of motion in the elbow actively is very limited secondary to pain. Able to initiate thumb extension, thumb opposition to little finger, wrist extension, and finger abduction. No deformities noted in the remainder of the left upper extremity. Left lower extremity: Leg is shortened and externally rotated. There is focal tenderness over the lateral hip region. Skin is closed. No ecchymosis or swelling. Able to actively plantarflex and dorsiflex the ankle. Moves all toes. 1+ edema in the lower leg. Neurologic: No sensory deficits left fingers or left toes to light touch Results & Data Vital Signs (Past 12 Hours) Vital Signs Temp Pulse Pulse Resp BP BP Pulse Ox 03/31/25 07:44 97.5 F L 83 18 103/63 93 03/31/25 05:54 68 03/31/25 03:00 97.5 F L 77 18 117/64 96 03/31/25 02:32 03/31/25 02:30 72 03/31/25 02:05 63 20 110/48 L 95 03/31/25 02:00 63 20 110/48 L 95 03/31/25 00:03 60 21 136/56 L 93 03/30/25 23:00 65 16 94 03/30/25 22:30 62 03/30/25 22:29 98.1 F 64 22 153/68 H 98 O2 Del Method 03/31/25 07:44 Room Air 03/31/25 05:54 03/31/25 03:00 Room Air 03/31/25 02:32 Room Air 03/31/25 02:30 03/31/25 02:05 Room Air 03/31/25 02:00 Room Air 03/31/25 00:03 Room Air 03/30/25 23:00 Room Air 03/30/25 22:30 03/30/25 22:29 Room Air Laboratory Results 03/31/25 03/30/25 04:35 22:30 WBC 8.31 6.69 RBC 3.52 L 4.04 L Hgb 9.5 L 10.5 L Hct 30.0 L 33.9 L MCV 85.2 83.9 MCH 27.0 26.0 MCHC 31.7 L 31.0 L RDW Std Deviation 65.7 H 66.0 H RDW Coeff of Donna 22.2 H 22.6 H Plt Count 277 327 MPV 9.4 9.8 Immature Gran % (Auto) 0.4 0.7 Neut % (Auto) 87.7 77.6 Lymph % (Auto) 6.4 12.0 Stark % (Auto) 4.9 5.4 Eos % (Auto) 0.1 3.1 Baso % (Auto) 0.5 1.2 Neut # (Auto) 7.29 H 5.19 Lymph # (Auto) 0.53 L 0.80 L Stark # (Auto) 0.41 0.36 Eos # (Auto) 0.01 0.21 Baso # (Auto) 0.04 0.08 Immature Gran # (Auto) 0.03 0.05 Polychromasia 1+ 1+ Anisocytosis Present Present Ovalocytes 1+ 1+ PT 11.1 INR 1.0 Sodium 138 138 Potassium 4.4 3.9 Chloride 106 102 Carbon Dioxide 26 29 Anion Gap 6 7 BUN 21 21 Creatinine 0.73 0.86 Est Cr Clr Drug Dosing 38.3 32.3 eGFR 78.56 64.53 BUN/Creatinine Ratio 28.8 H 24.4 H Glucose 129 H 107 H Calcium 8.8 9.2 Magnesium 1.9 Total Bilirubin 0.4 AST 30 ALT 20 Alkaline Phosphatase 68 Total Protein 7.8 Albumin 3.7 Globulin 4.1 H Albumin/Globulin Ratio 0.9 Diagnostic Findings Hip/Pelvis X-Ray 03/30/25 22:33 Exam(s): XR HIP + PELVIS, 1 view EXAM: XR Left Hip With Pelvis When Performed, 2 or 3 Views CLINICAL HISTORY: Reason for exam: L hip pain s/p fall. TECHNIQUE: Two or three views of the left hip with pelvis when performed. COMPARISON: No relevant prior studies available. FINDINGS: Bones/joints: Comminuted and displaced intertrochanteric fracture. Degenerative changes of the hips. Soft tissues: No radiodense foreign body. Vasculature: Vascular calcifications. IMPRESSION: Comminuted and displaced left intertrochanteric fracture. Electronically signed by: Graciela Varner M.D. 03/31/25 00:10 AM Shoulder X-Ray 03/30/25 22:33 Exam(s): XR LEFT SHOULDER, 2+ views EXAM: XR Left Shoulder Complete, 2 or More Views CLINICAL HISTORY: Reason for exam: L shoulder pain s/p fall. TECHNIQUE: Two or more views of the left shoulder. COMPARISON: 02/11/18 FINDINGS: Bones/joints: Shoulder prosthesis without evidence of fracture or dislocation. Suggestion of some erosive changes in the proximal humerus. Degenerative changes of the AC joint. Osteopenia. Soft tissues: No radiodense foreign body. IMPRESSION: Shoulder prosthesis without evidence of fracture or dislocation. Suggestion of some erosive changes/resorption in the proximal humerus. Electronically signed by: Graciela Varner M.D. 03/31/25 00:08 AM Elbow X-Ray 03/31/25 08:25 XR elbow LT min 3V routine CLINICAL HISTORY: injury, tender over olecranon COMPARISON: None FINDINGS: There is an acute minimally displaced oblique fracture with intra- articular extension proximally at the ulna. No other fracture or dislocation seen at the left elbow. There are a few benign appearing superficial soft tissue calcifications at the posterior aspect proximal forearm. There is calcification at the triceps insertion on the olecranon, consistent with calcific tendinitis. IMPRESSION: Acute fracture proximal ulna. ACT 112: Negative or not required by law. Electronically signed by: Foreign Tapia M.D. 03/31/2025 9:38 AM (1) Closed hip fracture Encounter type: initial encounter Laterality: left Qualified Code(s): S72.002A - Fracture of unspecified part of neck of left femur, initial encounter for closed fracture (2) Fracture of left proximal ulna Encounter type: initial encounter Fracture morphology: other fracture Fracture type: closed Qualified Code(s): S52.092A - Other fracture of upper end of left ulna, initial encounter for closed fracture
--- NOTE | 2025-03-31 11:29 | Anesthesiology Consultation ---
Date of Service March 31, 2025 Assessment & Plan Chart Review Chart Review: Acceptable Risk for Surgery and Patient NOT seen in Pre Admission Testing Consults Requested none ASA ASA4 Proposed Anesthesia Anesthesia Type: General Anesthesia Line Insertion: Arterial line History Surgery Operation Date: 03/31/25 10:30 Proposed Procedures p Left Short Troch Nail - Mert Rust MD Height/Weight Height: 5 ft 2 in Weight: 46.4 kg Allergies Allergy/AdvReac Type Severity Reaction Status Date / Time Iodinated Contrast Media Allergy Intermediate HIVES Verified 12/07/18 08:40 Penicillins Allergy Intermediate RASH Verified 12/07/18 08:40 Medications Home Medications Medication Instructions Recorded Confirmed Last Taken amlodipine 5 mg tablet 5 mg PO QAM 11/12/18 03/30/25 03/30/25 ferrous sulfate 325 mg (65 mg 325 mg PO QAM 01/07/25 03/30/25 03/30/25 iron) tablet (Iron (ferrous sulfate)) [id number]-[id number]-wjphgu tablet 1 tab PO QAM 01/07/25 03/30/25 03/30/25 aspirin 81 mg tablet,delayed 81 mg PO QAM 03/30/25 03/30/25 03/30/25 release atorvastatin 20 mg tablet 20 mg PO QAM 03/30/25 03/30/25 Unknown furosemide 40 mg tablet 40 mg PO QAM 03/30/25 03/30/25 03/30/25 lisinopril 5 mg tablet 5 mg PO QAM 03/30/25 03/30/25 03/30/25 metoprolol succinate 25 mg 12.5 mg PO QAM 03/30/25 03/30/25 03/30/25 tablet,extended release 24 hr potassium chloride 20 mEq 20 meq PO QAM 03/30/25 03/30/25 03/30/25 tablet,extended release(part/cryst) Active Medications Generic Name Dose Route Start Last Admin Trade Name Freq PRN Reason Stop Dose Admin Amlodipine Besylate 5 mg 03/31/25 09:00 03/31/25 09:46 Amlodipine Besylate 5 Mg Tab PO 04/30/25 08:59 5 mg QAM ULISES Administration Aspirin 81 mg 03/31/25 09:00 03/31/25 09:46 Aspirin 81 Mg Ectab PO 04/30/25 08:59 81 mg QAM ULISES Administration Atorvastatin Calcium 20 mg 03/31/25 09:00 03/31/25 09:46 Atorvastatin 20 Mg Tab PO 04/30/25 08:59 20 mg QAM ULISES Administration Ferrous Sulfate 325 mg 03/31/25 09:00 03/31/25 09:46 Ferrous Sulfate 325 Mg Tab PO 04/30/25 08:59 325 mg QAM ULISES Administration Acetaminophen 1,000 mg in 100 mls @ 400 mls/hr 03/31/25 02:29 03/31/25 10:39 Ofirmev IV 04/03/25 02:28 Infused Q8H PRN Infusion Pain or Fever Sodium Chloride 1,000 mls @ 50 mls/hr 03/31/25 02:29 03/31/25 03:19 Nss IV 04/03/25 02:28 50 mls/hr .Q20H ULISES Administration Metoprolol Succinate 12.5 mg 03/31/25 09:00 03/31/25 09:46 Metoprolol Succ 25mg Ext Rel Tab PO 04/30/25 08:59 12.5 mg QAM ULISES Administration Multivitamins/Minerals 1 tab 03/31/25 09:00 03/31/25 09:46 Cerovite Adv Formula Tab PO 04/30/25 08:59 1 tab QAM ULISES Administration Past Medical History Medical History Acute heart failure with preserved ejection fraction Systolic and diastolic CHF, acute Acute UTI Other malignant lymphomas of lymph nodes of head, face, and neck (12/31/12) "Mass of the right cheek status post 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 htn severe MR Severe /critical ASCVD CAD HTN Anemia s/p CVA < 4 METS Exercise / Class Metabolic Activity III < 4 Walking/Shop/Light housework Past Family History Family History Mother Family history of diabetes mellitus Past Surgical History Surgical History History of cataract surgery LEFT H/O shoulder surgery LEFT SHOULDER REPLACEMENT History of cardiac cath X 2 (NO STENTS) Past Anesthesia History No Hx of Anesthesia Complications and No Family Hx of Anesthesia Complications History of PONV No Hx of PONV and No Hx of Motion Sickness Social History Smoking Status: Never smoker Do You Dip or Chew Tobacco: No Hx Alcohol Use: No Hx Substance Use: No substance use type: does not use Physical Exam Vital Signs Last Vital Signs Temp 36.8 C 03/31/25 11:18 Pulse 70 03/31/25 11:18 Resp 16 03/31/25 11:18 BP 126/66 03/31/25 11:18 Pulse Ox 95 03/31/25 11:18 O2 Del Method Room Air 03/31/25 11:18 Testing Laboratory Results 03/31/25 04:35 03/31/25 04:35 PT 11.1 Seconds (9.0-12.0) 03/30/25 22:30 INR 1.0 (0.9-1.1) 03/30/25 22:30 Electrocardiogram Date: 03/30/25 Findings: + NSR @ (@ 66;LAFB;Poss. infer. infarct,age ?) Chest X-Ray Date: 01/22/25 Findings: + pulmonary vascular congestion and + pleural effusion (small left) Echocardiogram Date: 01/08/25 EF: 65% hyperdynamic LV Function: normal RWMA: + none Other Findings: + atrial enlargement (LA severely dilated) and + diastolic dysfunction (grade 2) Valvular Disease: + (critically severe w/ LANDON 0.53 cm 2), + MS (mild) and + MR (severe) TR- mild severe pulm. HTN-PAP 70-80 mmhg
[2025-03-31] MEDS ORDERED: PROPOFOL IV EMULSION 10 MG/ML 20 ML VIAL IV ONE (12:26)
[2025-03-31] MEDS ORDERED: ONDANSETRON INJ 2 MG/ML 2 ML VIAL ONE (12:26)
[2025-03-31] MEDS ORDERED: DEXAMETHASONE SOD INJ 4 MG/ML VIAL ONE (12:26)
[2025-03-31] MEDS ORDERED: LIDOCAINE 2% 2 ML VIAL/AMP(20MG/ML) INFIL ONE ×2 (12:27→12:29)
--- NOTE | 2025-03-31 12:34 | Communication Note ---
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 Patient seen and examined this morning in room 262-1. Limited mobility in L hip, L arm due to pain. Denies any CP, SOB. Plan for OR today with Dr. Rust for L olecranon ORIF, L short troch nail. Cardiology consulted for preop clearance given her significant cardiac history. Patient accepting associated risk. Careful intraoperative and postoperative management required. Holding lisinopril. Holding Lasix. Continue metoprolol succinate, amlodipine and aspirin without perioperative interruption as outlined by cardiology. Remains a FULL CODE - confirmed with patient preoperatively. Full progress note to be completed tomorrow. Patient seen in collaboration with Dr. Dang. Sybil Durbin PA-C [facility] Medicine Service
[2025-03-31] MEDS ORDERED: PHENYLEPHRINE HCL 10 MG/ML VIAL ONE (12:49)
[2025-03-31] MEDS: TRANEXAMIC ACID / 0.7% NACL 1,000 MG/100 ML BAG IV SCH (13:03)
[2025-03-31] MEDS: BUPIVACAINE/EPINEPHRINE 0.5% MPF 1:200,000 30 ML VIAL ONE ×2 (14:20→15:40)
--- NOTE | 2025-03-31 14:29 | Fluoroscopy Report ---
FL hip LT 2-3V CLINICAL HISTORY: LEFT HIP TROCH COMPARISON STUDY: 03/30/2025 FLUOROSCOPY TIME: 111 seconds FLUOROSCOPY IMAGES: 5 EXPOSURE DOSE: 14 mGy FINDINGS: Fluoroscopy was provided for short left femoral gamma nail. IMPRESSION: Intraoperative fluoroscopy. ACT 112: Negative or not required by law. Electronically signed by: Foreign Tapia M.D. 03/31/2025 2:28 PM
[2025-03-31] MEDS ORDERED: VASOPRESSIN 20 UNIT/ML VIAL ONE (14:41)
--- NOTE | 2025-03-31 15:47 | Operative Report ---
Post Operative Report Pre & Post Diagnosis Operation Date: 03/31/25 10:30 Preoperative diagnosis: Left olecranon fracture and displaced left intertrochanteric femur fracture Postoperative diagnosis: Left olecranon fracture and displaced left intertrochanteric femur fracture I identified the patient and participated in the time-out.: Yes Procedure Operation Date: 03/31/25 10:30 1. Closed reduction, intramedullary nail for displaced left intertrochanteric femur fracture 2. Open reduction internal fixation left olecranon fracture. Surgeon Mert Rust MD Farm Demonstrator Vini Zheng PA-C. No resident or fellow was available to assist. Estimated Blood Loss 125 Findings Consistent with Post-Op Diagnosis Specimens None Anesthesia Type General Complications none Disposition Disposition: Recovery Room Indications 89-year-old female, fell at home yesterday. Brought to the emergency room where x-rays demonstrated displaced left intertrochanteric femur fracture. She was admitted to the hospitalist service. I saw her this morning. Secondary survey revealed left elbow pain. X-rays demonstrated a left olecranon fracture with mild displacement. Patient was previously ambulatory without any assistive devices. She does have significant medical history including aortic stenosis. I do long discussion with her about the risks and benefits of surgery, alternatives to surgery, and expected outcomes. After reviewing all these she elected to proceed with surgery. All questions were answered. Informed consent was signed. Description of Procedure Patient was identified in the preoperative holding area where her surgical site was marked. She was brought back to the operating room where general anesthesia was administered on the hospital bed. She was then carefully moved onto the [place] table. The left arm was draped over her chest and secured with foam. The bilateral feet were secured in foam boots to table. She was slid down against the perineal post. The hips were scissored to facilitate lateral x-ray i nterpretation. Gross traction was then pulled on the operative leg. Internal rotation was then used to close reduce the fracture. This was confirmed with fluoroscopy. She was then prepped and draped in the usual sterile fashion. Prior to incision a multidisciplinary timeout was called. All in the room were in agreement. I began by identifying the tip of the greater trochanter under fluoroscopic guidance. Incision was made starting approximately 3 cm above this for distance of approximately 5 cm. I dissected down to subcutaneous tissues to the level of the fascia. K wire was pierced through the fascia and was placed at the tip of the trochanter. Position of the K wire was optimized on the AP and lateral fluoroscopic views and then driven down to the level lesser trochanter. Fascia was then incised on either side of the wire to allow the instruments to pass over the wire. Opening reamer was then used. I then opened up a short 12 mm Synthes nail. This was impacted down into the appropriate level. She had a nice tight fit distally in the intramedullary canal. The position of the outrigger device was then optimized in the lateral fluoroscopic view to place our cephalomedullary screw into the femoral head. The guidewire was drilled up into the femoral head. We took our measurement at 95 mm. I elected to use a 85 mm helical blade. The cortical drill was used followed by the step drill which was set at 90. I drilled over the top of the wire with fluoroscopic guidance to confirm that the wire did not moved. I then placed the helical blade up into the femoral head without difficulty. We had an excellent reduction so I did not feel that additional compression was necessary. The setscrew was placed from the top and static locking mode. Next, a distal locking screw was placed using the outrigger device through a separate stab incision. This measured at 34 mm in length. Excellent fixation was obtained. At this point her final fluoroscopic images were obtained. Wounds were irrigated out with copious amounts of normal saline. The proximal incision was closed with 0 Vicryl sutures in the deep subcutaneous layer. 2-0 Vicryl sutures were used in the deep dermal layer. Alberto were used for the skin. 2 stab incisions were closed with alberto. 30 cc of half percent ropivacaine was spread throughout incision sites for postoperative pain control. Xeroform 4 x 4 and Tegaderm dressings were applied. At this point although the hip fracture drapes were taken down. The operating room table was then unlocked and rotated so that the hand would be towards the center of the room then locked. Hand table was attached and her left arm was placed over the hand table. A nonsterile tourniquet was placed in the proximal arm. The left arm was then prepped and draped in the usual sterile fashion. We then proceeded with the open duction internal fixation of the left olecranon. Left upper extremity was exsanguinated with an Esmarch bandage. Tourniquet is inflated 250 mmHg. An 8 cm long incision was made centered over the fracture. She had a scar that was along the lateral side of the olecranon so we used the scar as part of our incision. I dissected down through subcutaneous tissues to the level of the fascia. Because the patient's fracture was minimally displaced the periosteum was actually intact. In order to maintain all of the biologic healing factors already present at the fracture site elected to not take down the periosteum. This would also cause a less pain as a result of not performing periosteal stripping. A Synthes olecranon plate was then placed and secured with K wires in the appropriate location confirmed on the AP and lateral views. I then placed a homerun squaring machine operator the shaft from the proximal aspect of the plate. This was a cortical screw and measured 54 mm. This had a nice bite in the far cortex. I then placed a 3.5 mm cortical screw at the distal hole in the plate in compression mode to further compress the fracture. Once this was complete a second 3.5 mm cortical screw was placed distally. I placed another unicortical screw, locking, distal to the fracture. 2 more locking screws were then placed in the proximal fracture unit cortically. Excellent fixation was obtained. At this point a final fluoroscopic images were obtained. I was happy with the fracture reduction and position of the plate and screws. The wound was irrigated out with copious amounts of normal saline. Deep dermis was closed with 3-0 Vicryl sutures. 3-0 nylon sutures were used for the skin. Patient was then placed in a cylindrical cast with her elbow held in full extension so that she could use this arm for partial weightbearing with a walker on her hip. She was then awoke from anesthesia and transferred to recovery room in stable condition. Postoperative course: Patient will be readmitted to the internal medicine service from the recovery room. She will be weightbearing as tolerated on her left lower extremity. In her left upper extremity she is partial weightbearing to help her use her walker. DVT prophylaxis per the primary service. Follow-up in the orthopedic clinics in 2 weeks with cast removal on her left elbow, suture removal, staple removal, and placement into a hinged elbow brace to be locked in full extension while she is ambulating. Elbow brace can be fully unlocked while she is sitting so she can begin range of motion exercises for her elbow at that time. I attest to the content of the Intraoperative Record and any orders documented therein. Any exceptions are noted below.
--- NOTE | 2025-03-31 16:32 | Operative Report ---
Post Operative Report Pre & Post Diagnosis Operation Date: 03/31/25 10:30 Pre-Op Diagnosis: Closed left hip fracture, Fracture of left proximal ulna Post-Op Diagnosis: Closed left hip fracture, Fracture of left proximal ulna I identified the patient and participated in the time-out.: Yes Procedure Operation Date: 03/31/25 10:30 Actual Procedures p Left Short Troch Nail(Left) - Mert Rust MD s Left Olecranon Open Reduction Internal Fixation(Left) - Mert Rust MD Surgeon Mark Rust MD Teacher Of Gifted Students Vini Zheng PA-C. No resident or fellow was available to assist. Estimated Blood Loss 125 (total for both procedures) Findings Consistent with Post-Op Diagnosis see operative report Specimens see operative report Drains none Complications none Disposition Accompanied Patient To Recovery: Yes Indications This 89 year old female presented through the ED after falling and fracturing her left hip and left elbow. She elected to proceed with surgical intervention after being educated about potential risks and outcomes. Preoperative imaging was obtained. Description of Procedure The patient was taken the operating room where she was given general anesthesia. She was prepped and draped in the usual sterile fashion. Please see Dr. Rust's operative report for specifics of the procedure. I was present for the entire case from initial patient positioning through final wound closure. Assistance was provided in tissue retraction, hemostasis, hardware placement, final wound closure, and post surgical casting. The patient was taken to the recovery room in satisfactory condition. I attest to the content of the Intraoperative Record and any orders documented therein. Any exceptions are noted below.
--- NOTE | 2025-03-31 17:49 | Anesthesiology Progress Note ---
Date of Service March 31, 2025 Anesthesia Post Procedure Vital Signs Vital Signs: Temp Pulse Pulse Pulse Resp BP BP 03/31/25 17:30 59 L 20 120/49 L 03/31/25 17:20 36.8 C 64 17 117/46 L 03/31/25 17:10 62 18 107/79 03/31/25 17:00 66 12 118/52 L 03/31/25 16:50 53 L 12 134/45 L 03/31/25 16:40 60 13 136/49 L 03/31/25 16:35 56 L 12 132/52 L 03/31/25 16:29 36.8 C 60 16 147/49 H 03/31/25 12:02 36.7 C 72 22 141/59 H 03/31/25 11:25 03/31/25 11:18 36.8 C 70 16 126/66 03/31/25 07:44 36.4 C L 83 18 103/63 03/31/25 05:54 68 03/31/25 03:00 36.4 C L 77 18 117/64 03/31/25 02:32 03/31/25 02:30 72 03/31/25 02:05 63 20 110/48 L 03/31/25 02:00 63 20 110/48 L 03/31/25 00:03 60 21 136/56 L 03/30/25 23:00 65 16 03/30/25 22:30 62 03/30/25 22:29 36.7 C 64 22 153/68 H 03/30/25 22:23 36.7 C 64 18 153/68 H Pulse Ox O2 Del Method O2 Flow Rate 03/31/25 17:30 96 Nasal Cannula 2 03/31/25 17:20 96 Nasal Cannula 2 03/31/25 17:10 96 Nasal Cannula 2 03/31/25 17:00 98 Nasal Cannula 2 03/31/25 16:50 100 Oxymask 3 03/31/25 16:40 100 Oxymask 6 03/31/25 16:35 100 Oxymask 6 03/31/25 16:29 100 Oxymask 6 03/31/25 12:02 96 Room Air 03/31/25 11:25 Room Air 03/31/25 11:18 95 Room Air 03/31/25 07:44 93 Room Air 03/31/25 05:54 03/31/25 03:00 96 Room Air 03/31/25 02:32 Room Air 03/31/25 02:30 03/31/25 02:05 95 Room Air 03/31/25 02:00 95 Room Air 03/31/25 00:03 93 Room Air 03/30/25 23:00 94 Room Air 03/30/25 22:30 03/30/25 22:29 98 Room Air 03/30/25 22:23 98 Room Air Pain Intensity Left Hip: Pain Intensity: 4 Left Shoulder: Pain Intensity: 2 Transfer of Care Handoff Completed per policy Notes Mental Status: alert / awake / arousable and participated in evaluation Patient Amnestic to Procedure: Yes Nausea / Vomiting: adequately controlled Pain: adequately controlled Airway Patency, RR, SpO2: stable & adequate BP & HR: stable & adequate Hydration State: stable & adequate Anesthetic Complications: no major complications apparent and Pt Satisfied with anesthetic care
--- NOTE | 2025-03-31 18:29 | XRay Report ---
EXAM: XR hip 1V LT w pelvis CLINICAL HISTORY: PACU - Post Surgical TECHNIQUE: X-ray images of the left hip joints in AP and lateral with AP pelvis projection. COMPARISON: No prior studies available for comparison. FINDINGS: Hip Joints: Internal fixation of the left femoral neck and shaft by intramedullary nail with no signs of loosening or hardware complications with good alignment of the intramedullary nail within the bone. Radiolucent intertrochanteric line noted at the left femoral neck with good alignment of the fracture ends. No evidence of hip dislocation, subluxation. Bilateral degenerative sacroiliitis Symphysis Pubis: Symphysis pubis show degenerative changes Soft Tissues: Soft tissue swelling noted at the left hip region and left upper thigh with associated multiple soft tissue gas densities likely sequelae of postoperative changes Additional Findings: Multiple pelvic phleboli Atheromatous calcifications. IMPRESSION: 1. Internal fixation of the left femoral neck and shaft by intramedullary nail with no signs of hardware complication 2. Radiolucent intertrochanteric line noted at the left femoral neck with good alignment of the fracture ends. 3. Soft tissue swelling noted at the left hip and upper thigh regions with associated multiple soft tissue gas densities likely sequelae of postoperative changes 4. Moderate right hip osteoarthritic changes. 5. Bilateral degenerative sacroiliitis Disclaimer: A subtle bone abnormality or fracture may not be readily apparent on X-rays, thus clinical correlation and further imaging including follow-up CT, MRI, or follow-up X-rays are advised as needed. Electronically signed by Tapan Wall 03-31-2025 6:29 PM
--- NOTE | 2025-03-31 23:53 | Electrocardiogram Report ---
Test Reason : Blood Pressure : */* mmHG Vent. Rate : 66 BPM Atrial Rate : 66 BPM P-R Int : 162 ms QRS Dur : 92 ms QT Int : 428 ms P-R-T Axes : 72 -58 40 degrees QTcB Int : 448 ms Normal sinus rhythm Left anterior fascicular block Possible Inferior infarct , age undetermined Abnormal ECG When compared with ECG of 07-Jan-2025 12:45, Premature ventricular complexes are no longer Present Premature atrial complexes are no longer Present Confirmed by Khurram Heller ([id number]) on 03/31/2025 11:53:39 PM Referred By: REFERRED SELF Confirmed By: Khurram Heller
[2025-04-01] MEDS: CYCLOBENZAPRINE HCL 5 MG TAB PO STA ×2 (00:37→02:06)
[2025-04-01] MEDS: HYDROmorphone INJ 0.5 MG/0.5 ML SYR IV PRN ×2 (00:57→10:51)
[2025-04-01 05:45] LABS: Hematocrit (blood only) 25.1 % (37.0-47.0); Hemoglobin 8.0 g/dl (12.0-16.0); Immature Granulocytes # (auto) 0.03 K/uL (0.01-0.20); Immature Granulocytes % (auto) 0.4 %; Mean Corpuscular Hemoglobin 27.1 pg (25.0-34.0); Mean Corpuscular Volume 85.1 fL (80.0-100.0); Platelet Count 249 K/uL (130-400); RDW Standard Deviation 66.8 fL (36.4-46.3); Red Blood Count 2.95 M/uL (4.20-5.40); White Blood Count 8.01 K/ul (4.8-10.8)
[2025-04-01 06:05] LABS: Anisocytosis Present; Ovalocytes 1+
[2025-04-01 06:13] LABS: Anion Gap 4.0 (3-11); Blood Urea Nitrogen 19.0 mg/dl (6-23); Calcium 8.5 mg/dl (8.6-10.3); Carbon Dioxide 25.0 mmol/L (21-32); Chloride 109.0 mmol/L (98-107); Creatinine Clr Calc Pharmacy 39.3 ml/min; Glucose 127.0 mg/dl (70-99(Fasting)); Magnesium 2.0 mg/dl (1.7-2.4); Potassium 4.6 mmol/L (3.5-5.1); Sodium 138.0 mmol/L (136-145)
--- NOTE | 2025-04-01 07:19 | Fluoroscopy Report ---
INTRAOPERATIVE RADIOGRAPHS CLINICAL HISTORY: Open reduction and internal fixation of the left ulna. Fluoro time: 66 seconds Ka,r: 2.26 mGy FINDINGS: 3 spot fluoroscopic views of the left elbow are correlated with radiographs dated 03/31/2025. There has been buttress plate fixation along the dorsal cortex of the proximal ulna transfixing a co mminuted olecranon fracture. Near anatomic alignment is restored. The orthopedic hardware appears int act. Overlying soft tissue edema is observed. Soft tissue calcifications are seen in the upper forear m. IMPRESSION: Intraoperative images from open reduction and internal fixation of the proximal left ulna . Electronically signed by: Dallin Sexton M.D. 04/01/2025 7:18 AM
--- NOTE | 2025-04-01 09:18 | Orthopedic Progress Note ---
Date of Service April 01, 2025 Assessment & Plan (1) Closed hip fracture: Plan: PT OT today. Weight-bear as tolerated on the left lower extremity with a walker and max assist. Safe for her to put weight through her left upper extremity while using the walker. DVT prophylaxis per the primary team. Left elbow x-rays ordered today as part of routine postop evaluation Continue to elevate her left arm on blankets and pillows. Follow-up with orthopedics 2 weeks after discharge for cast removal on the left upper extremity, suture removal, and transition to a hinged elbow brace which we will lock in full extension while she is weightbearing through the left upper extremity. (2) Fracture of left proximal ulna: Admission and Anticipated Discharge Date Admission Date: March 31, 2025 Subjective Patient seen and examined on a.m. rounds. Overall she reports she is doing well. She does not like the fact that her elbow is straight because she cannot use it to feed herself and she is left-handed. However she is able to figure things out with the right hand so far. Reports her pain is well-controlled. Tolerating an oral diet. Physical Exam Physical Exam: On exam she is sitting upright in bed in no acute distress. Her left arm is supported on pillows and blankets. Left arm exam reveals the cast to be well-fitting. She has some arthritis in her left hand at baseline with some stiffness in her hand joints. However she is able to move all of her fingers normally. Sensation intact to moving light touch median ulnar and radial nerve distributions. Left hip exam shows her dressings to be clean dry and intact. Mild swelling appropriate for this stage postoperatively. Results & Data Vital Signs (Past 12 Hours) Vital Signs Temp Pulse Pulse Resp BP Pulse Ox O2 Del Method 04/01/25 08:22 67 17 114/60 98 Nasal Cannula 04/01/25 08:01 58 L 04/01/25 02:42 36.5 C 56 L 18 109/58 L 99 Nasal Cannula 03/31/25 23:07 Nasal Cannula 03/31/25 22:39 36.6 C 65 18 119/67 98 Nasal Cannula 03/31/25 21:44 55 L O2 Flow Rate 04/01/25 08:22 2 04/01/25 08:01 04/01/25 02:42 2 03/31/25 23:07 2 03/31/25 22:39 2 03/31/25 21:44 Diagnostic Findings Postop x-rays of her hip and are reviewed. These show hardware in good position with no evidence of complication. (1) Closed hip fracture Encounter type: initial encounter Laterality: left Qualified Code(s): S72.002A - Fracture of unspecified part of neck of left femur, initial encounter for closed fracture (2) Fracture of left proximal ulna Encounter type: initial encounter Fracture type: closed Fracture morphology: other fracture Qualified Code(s): S52.092A - Other fracture of upper end of left ulna, initial encounter for closed fracture
[2025-04-01] MEDS: POTASSIUM CHLORIDE CRTAB 20 MEQ TABCR PO SCH (09:26)
[2025-04-01] MEDS: FUROSEMIDE 40 MG TAB PO SCH (09:26)
--- NOTE | 2025-04-01 10:29 | XRay Report ---
LEFT ELBOW 2 VIEWS CLINICAL HISTORY: Postoperative examination. FINDINGS: AP and crosstable lateral views of the left elbow are compared to study dated 03/31/2025. The examination is performed through a cast, obscuring fine bony detail. The skeletal structures are ost eopenic. There has been buttress plate fixation along the dorsal cortex of an olecranon process fract ure. Near anatomic alignment is restored. The orthopedic hardware appears intact. The joint spaces ar e maintained. Soft tissue edema is present around the elbow. Soft tissue calcifications are noted in the upper forearm. IMPRESSION: There is postsurgical change from buttress plate fixation of the olecranon process as ab ove with roman catholic of near-anatomic alignment. Electronically signed by: Dallin Sexton M.D. 04/01/2025 10:26 AM
--- NOTE | 2025-04-01 11:10 | Hospitalist Progress Note ---
Date of Service April 01, 2025 Assessment & Plan (1) Closed hip fracture: Plan 89-year-old female with past medical history significant for hyperlipidemia, heart failure with preserved ejection fraction, hypertension, CAD, CVA, severe aortic stenosis, GERD, history of MALToma status post fall and left hip fracture & ulna fracture. Mechanical fall Left hip fracture Left proximal ulna fracture S/p L olecranon ORIF; L short troch nail (03/31/25) WBATleft lower extremity, PT/OT, DVT prophylaxis Ortho following, follow-up left elbow x-rays Continue arm elevation, follow-up with Ortho in 2 weeks after DC for cast removal of LUE, suture removal, and transition to hinged elbow brace Acute blood loss anemia Hx DEL: -On iron supplements; baseline hgb 10.5 Blood loss likely secondary to procedure on 03/31, hemoglobin stable at 8 but did drop from 10.5 Hemodynamically stable, continue to monitor daily hemoglobin Critical Severe MR Diastolic CHF CAD/HTN/HLD Cardiology initially consulted for preop clearance Continue holding lisinopril/Lasix for now, continue metoprolol/amlodipine/aspirin/statin History of MALToma S/p radiation therapy Last seen heme-onc in 2018 DVT prophylaxis: lovenox SCDs on right leg CODE STATUS: full code Disposition: Will likely need rehab, plan for ADC in the next 24-48 hours A total of 35 minutes was spent on chart review/reviewing diagnostic data/facilitating plan of care/discussion with consultants Admission and Anticipated Discharge Date Admission Date: March 31, 2025 Subjective Patient seen and examined. No apparent distress. Reports her pain is controlled. Denies any chest pain or shortness of breath. Has not been out of bed with physical therapy yet. Review of Systems Review of Systems: All systems reviewed & are unremarkable except as noted in HPI & below Physical Exam Constitutional: WD/WN, vitals as above Eyes: PERRL, conjunctivae normal, anicteric sclerae ENMT: external ear and nose normal, oropharynx normal Neck: trachea midline, no thyromegaly Respiratory: normal respiratory effort, lungs clear to auscultation Cardiovascular: RRR, no murmur, no edema Gastrointestinal (Abdomen): normal bowel sounds, soft, nontender, no hepatosplenomegaly Musculoskeletal: no cyanosis or clubbing, extremities motor strength 5/5 (Cast on L arm, WBAT, L hip dressing CDI, swelling noted) Skin: no rashes, warm and dry Neurologic: PERRL, EOMI, accommodation nl, no face palsy, no dysarthria Psychiatric: A+Ox3, euthymic affect Lymphatic: no cervical or axillary lymphadenopathy Results & Data Results & Data Vital Signs (Past 12 Hours) Vital Signs Temp Pulse Pulse Resp BP Pulse Ox O2 Del Method 04/01/25 08:22 67 17 114/60 98 Nasal Cannula 04/01/25 08:01 58 L 04/01/25 02:42 36.5 C 56 L 18 109/58 L 99 Nasal Cannula 03/31/25 23:07 Nasal Cannula O2 Flow Rate 04/01/25 08:22 2 04/01/25 08:01 04/01/25 02:42 2 03/31/25 23:07 2 Diagnostic Findings Laboratory Results WBC 8.01 K/ul (4.8-10.8) 04/01/25 05:28 RBC 2.95 M/uL (4.20-5.40) L 04/01/25 05:28 Hgb 8.0 g/dl (12.0-16.0) L 04/01/25 05:28 Hct 25.1 % (37.0-47.0) L 04/01/25 05:28 MCV 85.1 fL (80.0-100.0) 04/01/25 05:28 MCH 27.1 pg (25.0-34.0) 04/01/25 05:28 MCHC 31.9 g/dL (32.0-36.0) L 04/01/25 05:28 RDW Std Deviation 66.8 fL (36.4-46.3) H 04/01/25 05:28 RDW Coeff of Donna 21.5 % (11.5-14.5) H 04/01/25 05:28 Plt Count 249 K/uL (130-400) 04/01/25 05:28 MPV 10.1 fL (9.4-12.4) 04/01/25 05:28 Immature Gran % (Auto) 0.4 % 04/01/25 05:28 Neut % (Auto) 87.2 % 04/01/25 05:28 Lymph % (Auto) 5.6 % 04/01/25 05:28 [place] % (Auto) 6.7 % 04/01/25 05:28 Eos % (Auto) 0.0 % 04/01/25 05:28 Baso % (Auto) 0.1 % 04/01/25 05:28 Neut # (Auto) 6.98 K/uL (1.40-6.50) H 04/01/25 05:28 Lymph # (Auto) 0.45 K/uL (1.20-3.40) L 04/01/25 05:28 [place] # (Auto) 0.54 K/uL (0.11-0.59) 04/01/25 05:28 Eos # (Auto) 0.00 K/uL (0.00-0.50) 04/01/25 05:28 Baso # (Auto) 0.01 K/uL (0.00-0.20) 04/01/25 05:28 Immature Gran # (Auto) 0.03 K/uL (0.01-0.20) 04/01/25 05:28 Polychromasia 1+ 03/31/25 04:35 Anisocytosis Present 04/01/25 05:28 Ovalocytes 1+ 04/01/25 05:28 PT 11.1 Seconds (9.0-12.0) 03/30/25 22:30 INR 1.0 (0.9-1.1) 03/30/25 22:30 Sodium 138 mmol/L (136-145) 04/01/25 05:28 Potassium 4.6 mmol/L (3.5-5.1) 04/01/25 05:28 Chloride 109 mmol/L (98-107) H 04/01/25 05:28 Carbon Dioxide 25 mmol/L (21-32) 04/01/25 05:28 Anion Gap 4 (3-11) 04/01/25 05:28 BUN 19 mg/dl (6-23) 04/01/25 05:28 Creatinine 0.71 mg/dl (0.6-1.2) 04/01/25 05:28 Est Cr Clr Drug Dosing 39.3 ml/min 04/01/25 05:28 eGFR 81.22 04/01/25 05:28 BUN/Creatinine Ratio 26.8 (10-20) H 04/01/25 05:28 Glucose 127 mg/dl (70-99(Fasting)) H 04/01/25 05:28 Calcium 8.5 mg/dl (8.6-10.3) L 04/01/25 05:28 Phosphorus 3.7 mg/dl (2.5-4.9) 04/01/25 05:28 Magnesium 2.0 mg/dl (1.7-2.4) 04/01/25 05:28 Total Bilirubin 0.4 mg/dl (0.2-1.0) 03/30/25 22:30 AST 30 U/L (13-39) 03/30/25 22:30 ALT 20 U/L (7-52) 03/30/25 22:30 Alkaline Phosphatase 68 U/L (34-104) 03/30/25 22:30 Total Protein 7.8 gm/dl (6.0-8.3) 03/30/25 22:30 Albumin 3.7 gm/dl (3.4-5.0) 03/30/25 22:30 Globulin 4.1 gm/dl (2.5-4.0) H 03/30/25 22:30 Albumin/Globulin Ratio 0.9 (0.9-2) 03/30/25 22:30 25-OH Vitamin D Total 37.7 ng/ml (30-100) 04/01/25 05:28 Impressions Shoulder X-Ray 03/30/25 22:33 Exam(s): XR LEFT SHOULDER, 2+ views EXAM: XR Left Shoulder Complete, 2 or More Views CLINICAL HISTORY: Reason for exam: L shoulder pain s/p fall. TECHNIQUE: Two or more views of the left shoulder. COMPARISON: 02/11/18 FINDINGS: Bones/joints: Shoulder prosthesis without evidence of fracture or dislocation. Suggestion of some erosive changes in the proximal humerus. Degenerative changes of the AC joint. Osteopenia. Soft tissues: No radiodense foreign body. IMPRESSION: Shoulder prosthesis without evidence of fracture or dislocation. Suggestion of some erosive changes/resorption in the proximal humerus. Electronically signed by: Graciela Varner M.D. 03/31/25 00:08 AM Hip X-Ray 03/31/25 00:00 FL hip LT 2-3V CLINICAL HISTORY: LEFT HIP TROCH COMPARISON STUDY: 03/30/2025 FLUOROSCOPY TIME: 111 seconds FLUOROSCOPY IMAGES: 5 EXPOSURE DOSE: 14 mGy FINDINGS: Fluoroscopy was provided for short left femoral gamma nail. IMPRESSION: Intraoperative fluoroscopy. ACT 112: Negative or not required by law. Electronically signed by: Foreign Tapia M.D. 03/31/2025 2:28 PM Hip/Pelvis X-Ray 03/31/25 16:39 EXAM: XR hip 1V LT w pelvis CLINICAL HISTORY: PACU - Post Surgical TECHNIQUE: X-ray images of the left hip joints in AP and lateral with AP pelvis projection. COMPARISON: No prior studies available for comparison. FINDINGS: Hip Joints: Internal fixation of the left femoral neck and shaft by intramedullary nail with no signs of loosening or hardware complications with good alignment of the intramedullary nail within the bone. Radiolucent intertrochanteric line noted at the left femoral neck with good alignment of the fracture ends. No evidence of hip dislocation, subluxation. Bilateral degenerative sacroiliitis Symphysis Pubis: Symphysis pubis show degenerative changes Soft Tissues: Soft tissue swelling noted at the left hip region and left upper thigh with associated multiple soft tissue gas densities likely sequelae of postoperative changes Additional Findings: Multiple pelvic phleboli Atheromatous calcifications. IMPRESSION: 1. Internal fixation of the left femoral neck and shaft by intramedullary nail with no signs of hardware complication 2. Radiolucent intertrochanteric line noted at the left femoral neck with good alignment of the fracture ends. 3. Soft tissue swelling noted at the left hip and upper thigh regions with associated multiple soft tissue gas densities likely sequelae of postoperative changes 4. Moderate right hip osteoarthritic changes. 5. Bilateral degenerative sacroiliitis Disclaimer: A subtle bone abnormality or fracture may not be readily apparent on X-rays, thus clinical correlation and further imaging including follow-up CT, MRI, or follow-up X-rays are advised as needed. Electronically signed by Tapan Wall 03-31-2025 6:29 PM Elbow X-Ray 04/01/25 09:18 LEFT ELBOW 2 VIEWS CLINICAL HISTORY: Postoperative examination. FINDINGS: AP and crosstable lateral views of the left elbow are compared to study dated 03/31/2025. The examination is performed through a cast, obscuring fine bony detail. The skeletal structures are osteopenic. There has been buttress plate fixation along the dorsal cortex of an olecranon process fracture. Near anatomic alignment is restored. The orthopedic hardware appears intact. The joint spaces are maintained. Soft tissue edema is present around the elbow. Soft tissue calcifications are noted in the upper forearm. IMPRESSION: There is postsurgical change from buttress plate fixation of the olecranon process as above with samaritan of near-anatomic alignment. Electronically signed by: Dallin Sexton M.D. 04/01/2025 10:26 AM (1) Closed hip fracture Encounter type: initial encounter Laterality: left Qualified Code(s): S72.002A - Fracture of unspecified part of neck of left femur, initial encounter for closed fracture
--- NOTE | 2025-04-01 11:20 | Cardiology Progress Note ---
Date of Service April 01, 2025 Assessment & Plan (1) Critical aortic valve stenosis: (2) Severe mitral regurgitation: (3) Diastolic congestive heart failure: (4) ASCVD (arteriosclerotic cardiovascular disease): (5) Closed hip fracture: Plan 89-year-old female admitted following a mechanical fall with resultant left hip fracture. Cardiology consultation requested for preoperative evaluation. Patient with known multivessel coronary artery disease, diastolic congestive hea rt failure secondary to hypertensive heart disease and valvular heart disease, critical symptomatic aortic valve stenosis via December 2024 resting echocardiogram, chart history of CVA. Underwent left hip surgery with no complications. - feeling well today on exam from cardiac standpoint - euvolemic on exam - continue aspirin, atorvastatin, metoprolol succinate, furosemide, amlodipine - continue to monitor on telemetry - will need outpatient valve clinic appointment to discuss TAVR, currently scheduled for July, message sent to move up appointment given severity of stenosis Case discussed with attending physician, further recommendations per Dr. Irizarry. I spent a total of 30 minutes on the date of service in preparation, delivery, and documentation of the care provided to this patient excluding any time spent in the performance of separately billed services. This visit was a split-shared visit with the substantial portion of the decision making performed by the supervising lumber tailer/billing provider. Opal Harp PA-C [facility] Cardiology Admission and Anticipated Discharge Date Admission Date: March 31, 2025 Supervising Physician Co-Signing Physician Notes Attending attestation: Case reviewed with the advanced practitioner. I have personally performed a history and physical examination on the patient. I have reviewed the advanced practitioner's documentation on the date of service referenced in note, and I agree with, and take responsibility for the plan of care. Postoperative day 1. Hemoglobin trended down to 8 g/dL we will continue to follow. Blood pressure stable Medications as outlined above. Subcutaneous heparin for DVT prophylaxis I spent a total of 20 minutes coordinating, documenting, and providing care for this patient excluding time spent in the performance of separately billed services or time spent by another provider. Boo Irizarry, DO Subjective Patient evaluated today for cardiology follow up. Underwent left hip surgery yesterday with no complications. States she is overall feeling well today. Resting comfortably in bed on exam. Mild pain. Denies chest pain, palpitations, shortness of breath. Review of Systems Review of Systems: CONSTITUTIONAL: No change in weight, No weakness, No fatigue and No fevers, No sweats or chills. PULMONARY: No cough, sputum, or hemoptysis, No wheezing, No shortness of breath and No recent change in breathing. CARDIOVASCULAR: No chest pain, No dyspnea on exertion, No edema, No palpitations and No syncope. GASTROINTESTINAL: No abdominal pain, No change in bowel habits, No significant heartburn, No nausea, No vomiting, No diarrhea, No constipation, No blood in stools or black tarry stools. No dysphagia. HEMATOLOGIC: No abnormal bleeding and No bruising. NEUROLOGICAL: Normal balance, No headaches and No weakness. Physical Exam Physical Exam: General: No acute distress. A+Ox3. Frail. HEENT: Normocephalic. Atraumatic. PERRL. EOMI. Conjunctiva and sclera clear. NECK: No carotid bruits. No JVD. Carotid upstrokes are brisk. Heart: RRR. +3/6 systolic murmur. S1 noted, no S2. No rubs or gallops. PMI non displaced. Lungs: Diminished, but clear to auscultation. No wheezes. No rhonchi. No rales. Abdomen: Normal bowel sounds. Soft. Nontender. No masses or organomegaly. No abdominal bruits. Extremities: No edema. No clubbing or cyanosis. Left arm in cast. NEURO: No focal deficits. PSYCH: Appropriate affect and insight. Results & Data Vital Signs (Past 12 Hours) Vital Signs Temp Pulse Pulse Resp BP Pulse Ox O2 Del Method 04/01/25 08:22 67 17 114/60 98 Nasal Cannula 04/01/25 08:01 58 L 04/01/25 02:42 36.5 C 56 L 18 109/58 L 99 Nasal Cannula O2 Flow Rate 04/01/25 08:22 2 04/01/25 08:01 04/01/25 02:42 2 Laboratory Results CBC 04/01/25 Range/Units 05:28 WBC 8.01 (4.8-10.8) K/ul RBC 2.95 L (4.20-5.40) M/uL Hgb 8.0 L (12.0-16.0) g/dl Hct 25.1 L (37.0-47.0) % Plt Count 249 (130-400) K/uL Neut # (Auto) 6.98 H (1.40-6.50) K/uL Lymph # (Auto) 0.45 L (1.20-3.40) K/uL [place] # (Auto) 0.54 (0.11-0.59) K/uL Eos # (Auto) 0.00 (0.00-0.50) K/uL Baso # (Auto) 0.01 (0.00-0.20) K/uL Comprehensive Metabolic Panel 04/01/25 Range/Units 05:28 Sodium 138 (136-145) mmol/L Potassium 4.6 (3.5-5.1) mmol/L Chloride 109 H (98-107) mmol/L Carbon Dioxide 25 (21-32) mmol/L BUN 19 (6-23) mg/dl Creatinine 0.71 (0.6-1.2) mg/dl Glucose 127 H (70-99(Fasting)) mg/dl Calcium 8.5 L (8.6-10.3) mg/dl Intake and Output 03/31/25 04/01/25 04/01/25 22:59 06:59 14:59 Intake Total 900 / 2200.000 604.167 / 2200.000 100 / 100 Output Total 525 / 725 200 / 725 Balance 375 / 1475.000 404.167 / 1475.000 100 / 100 Intake: IV 0 / 1300.000 604.167 / 1300.000 100 / 100 Acetaminophen 1,000 mg In 100 100 / 200 100 / 100 ml @ 400 mls/hr IV Q8H PRN Rx#: [id number] Sodium Chloride 0.9% 1,000 ml @ 0 / 1000.000 504.167 / 1000.000 50 mls/hr IV .Q20H ULISES Rx#: [id number] IV Perioperative 800 / 800 Oral 100 / 100 Output: Estimated Blood Loss 125 / 125 Urine Amount (Catheter) 400 / 600 200 / 600 Matos/Indwelling 400 / 600 200 / 600 Other: Other Intake Source sips Weight 48.2 kg Weight Measurement Method Built in [facility] Diagnostic Findings Echo 01/08/25 EF 65-70%, critical , Ao V2 max 520.9, mean PG 58.4, LANDON 0.56 cm2, severe MR, severe pulmonary HTN C[place] [address] SUB INP/OBS CARE 3/50MIN Patient Type Established Medical Decision Making High Complexity Diagnoses Critical aortic valve stenosis I35.0 Severe mitral regurgitation I34.0 Chronic diastolic congestive heart failure I50.32 Heart failure chronicity: chronic ASCVD (arteriosclerotic cardiovascular disease) I25.10 Closed hip fracture S72.002A Encounter type: initial encounter Laterality: left (3) Diastolic congestive heart failure Heart failure chronicity: chronic Qualified Code(s): I50.32 - Chronic diastolic (congestive) heart failure (5) Closed hip fracture Encounter type: initial encounter Laterality: left Qualified Code(s): S72.002A - Fracture of unspecified part of neck of left femur, initial encounter for closed fracture
[2025-04-01 13:48] LABS: Prealbumin 14.4 mg/dl (20-40)
[2025-04-01] MEDS: HEPARIN SOD 5,000 UNIT/0.5 ML VIAL SC SCH (20:08)
[2025-04-02 06:03] LABS: Hematocrit (blood only) 25.9 % (37.0-47.0); Hemoglobin 8.1 g/dl (12.0-16.0); Immature Granulocytes # (auto) 0.02 K/uL (0.01-0.20); Immature Granulocytes % (auto) 0.3 %; Mean Corpuscular Hemoglobin 27.2 pg (25.0-34.0); Mean Corpuscular Volume 86.9 fL (80.0-100.0); Platelet Count 255 K/uL (130-400); RDW Standard Deviation 70.1 fL (36.4-46.3); Red Blood Count 2.98 M/uL (4.20-5.40); White Blood Count 7.28 K/ul (4.8-10.8)
[2025-04-02 06:19] LABS: Alanine Aminotransferase 7.0 U/L (7-52); Albumin Globulin Ratio 0.9 (0.9-2); Alkaline Phosphatase 50.0 U/L (34-104); Anion Gap 5.0 (3-11); Bilirubin,Total 0.4 mg/dl (0.2-1.0); Blood Urea Nitrogen 16.0 mg/dl (6-23); Calcium 8.1 mg/dl (8.6-10.3); Carbon Dioxide 27.0 mmol/L (21-32); Chloride 105.0 mmol/L (98-107); Creatinine Clr Calc Pharmacy 46.8 ml/min; Globulin 3.2 gm/dl (2.5-4.0); Glucose 87.0 mg/dl (70-99(Fasting)); Potassium 4.1 mmol/L (3.5-5.1); Sodium 137.0 mmol/L (136-145); Total Protein 6.2 gm/dl (6.0-8.3)
[2025-04-02 06:24] LABS: Ovalocytes 1+; Polychromasia 1+
[2025-04-02] MEDS ORDERED: ENOXAPARIN INJ 40 MG/0.4 ML SYR SQ SCH (09:00)
--- NOTE | 2025-04-02 10:13 | Cardiology Progress Note ---
Date of Service April 02, 2025 Assessment & Plan (1) Critical aortic valve stenosis: (2) Severe mitral regurgitation: (3) Diastolic congestive heart failure: (4) ASCVD (arteriosclerotic cardiovascular disease): (5) Closed hip fracture: Plan 89-year-old female admitted following a mechanical fall with resultant left hip fracture. Cardiology consultation requested for preoperative evaluation. Patient with known multivessel coronary artery disease, diastolic congestive hea rt failure secondary to hypertensive heart disease and valvular heart disease, critical symptomatic aortic valve stenosis via December 2024 resting echocardiogram, chart history of CVA. Underwent left hip surgery and ORIF of left olecranon fraction with no complications on 03/31/25. - feeling well today on exam from cardiac standpoint - euvolemic on exam - continue aspirin, atorvastatin, metoprolol succinate, furosemide, amlodipine - continue to monitor on telemetry - will need outpatient valve clinic appointment to discuss TAVR, currently scheduled for July, message sent to move up appointment given severity of stenosis DO Lyn Young Cardiology Admission and Anticipated Discharge Date Admission Date: March 31, 2025 Subjective Patient seen in cardiology follow up. Denies lightheadedness or dizziness. Denies chest pain. Leg pain controlled. Notes some swelling of her left had distal to cast site. Physical Exam Physical Exam: General: A&Ox3. NAD. Skin: Pallor HENT: Normocephalic. Atraumatic. Eyes: PER. Conjunctiva pink, sclera pale. Neck: Transmitted systolic murmur, ? carotid bruits. Normal jugular venous distention Heart: Regular, 66 bpm. Grade III/ systolic ejection murmur. + Apical systolic murmur. No diastolic murmur appreciated. No rub. Lungs: Diminished. Decreased. Bibasilar rales. No wheeze. Abdomen: +BS. Soft. Nontender. No masses or organomegaly. Extremities: Trivial pretibial edema. No clubbing. No cyanosis. Limited neurological examination is without focal deficits. : Matos catheter in place draining clear yellow urine Results & Data Vital Signs (Past 12 Hours) Vital Signs Temp Pulse Pulse Pulse Resp BP Pulse Ox 04/02/25 08:16 36.8 C 76 20 131/67 92 04/02/25 08:07 36.6 C 70 17 109/70 90 04/02/25 07:11 70 04/02/25 04:28 36.5 C 62 18 126/70 95 04/01/25 23:57 36.4 C L 63 18 122/64 94 O2 Del Method 04/02/25 08:16 Room Air 04/02/25 08:07 Room Air 04/02/25 07:11 04/02/25 04:28 Room Air 04/01/25 23:57 Room Air Laboratory Results Cardiac Enzymes 04/02/25 Range/Units 05:44 AST 28 (13-39) U/L CBC 04/02/25 Range/Units 05:44 WBC 7.28 (4.8-10.8) K/ul RBC 2.98 L (4.20-5.40) M/uL Hgb 8.1 L (12.0-16.0) g/dl Hct 25.9 L (37.0-47.0) % Plt Count 255 (130-400) K/uL Neut # (Auto) 6.01 (1.40-6.50) K/uL Lymph # (Auto) 0.61 L (1.20-3.40) K/uL [place] # (Auto) 0.46 (0.11-0.59) K/uL Eos # (Auto) 0.14 (0.00-0.50) K/uL Baso # (Auto) 0.04 (0.00-0.20) K/uL Comprehensive Metabolic Panel 04/02/25 Range/Units 05:44 Sodium 137 (136-145) mmol/L Potassium 4.1 (3.5-5.1) mmol/L Chloride 105 (98-107) mmol/L Carbon Dioxide 27 (21-32) mmol/L BUN 16 (6-23) mg/dl Creatinine 0.62 (0.6-1.2) mg/dl Glucose 87 (70-99(Fasting)) mg/dl Calcium 8.1 L (8.6-10.3) mg/dl AST 28 (13-39) U/L ALT 7 (7-52) U/L Alkaline Phosphatase 50 (34-104) U/L Total Protein 6.2 (6.0-8.3) gm/dl Albumin 3.0 L (3.4-5.0) gm/dl PG Care Time/CCT Total # of Minutes Spent Total Time Spent with Patient: Total time spent is greater than 50% in coordination of care (as documented) at patient's floor/unit and/or counseling patient: Coding Level of Care Code 26191 SUB INP/OBS CARE 235MIN History Detailed Exam Detailed Diagnoses Critical aortic valve stenosis I35.0 Severe mitral regurgitation I34.0 Chronic diastolic congestive heart failure I50.32 Heart failure chronicity: chronic ASCVD (arteriosclerotic cardiovascular disease) I25.10 Closed hip fracture S72.002A Encounter type: initial encounter Laterality: left (3) Diastolic congestive heart failure Heart failure chronicity: chronic Qualified Code(s): I50.32 - Chronic diastolic (congestive) heart failure (5) Closed hip fracture Encounter type: initial encounter Laterality: left Qualified Code(s): S72.002A - Fracture of unspecified part of neck of left femur, initial encounter for closed fracture
--- NOTE | 2025-04-02 10:56 | Hospitalist Progress Note ---
Date of Service April 02, 2025 Assessment & Plan (1) Closed hip fracture: Plan 89-year-old female with past medical history significant for hyperlipidemia, heart failure with preserved ejection fraction, hypertension, CAD, CVA, severe aortic stenosis, GERD, history of MALToma status post fall and left hip fracture & ulna fracture. Mechanical fall Left hip fracture Left proximal ulna fracture S/p L olecranon ORIF; L short troch nail (03/31/25) WBATleft lower extremity, PT/OT, DVT prophylaxis Ortho following, follow-up left elbow x-ray acceptable Continue arm elevation, follow-up with Ortho in 2 weeks after DC for cast removal of LUE, suture removal, and transition to hinged elbow brace Acute blood loss anemia Hx DEL: -On iron supplements; baseline hgb 10.5 Blood loss likely secondary to procedure on 03/31, hemoglobin stable at 8.1 but did drop from 10.5 -Hemodynamically stable, continue to monitor daily hemoglobin; no s/s of active GI bleeding Critical Severe MR Diastolic CHF CAD/HTN/HLD Cardiology initially consulted for preop clearance Continue holding lisinopril/Lasix for now, continue metoprolol/amlodipine/aspirin/statin Will need outpatient valve clinic appointment to discuss TAVR History of MALToma S/p radiation therapy Last seen heme-onc in 2018 DVT prophylaxis: lovenox SCDs on right leg CODE STATUS: full code Disposition: Patient will need rehab on DC, plan for [facility] hopefully tomorrow 04/03 discussed discharge plan with patient's son Kenneth Cell phone number is [phone] A total of 35 minutes was spent on chart review/reviewing diagnostic data/facilitating plan of care/discussion with consultants Admission and Anticipated Discharge Date Admission Date: March 31, 2025 Subjective Patient seen and examined. No apparent distress. Reports being anxious for discharge. Reports her pain is controlled. Still reports some weakness with getting out of bed. Review of Systems Review of Systems: All systems reviewed & are unremarkable except as noted in HPI & below Physical Exam Constitutional: WD/WN, vitals as above Eyes: PERRL, conjunctivae normal, anicteric sclerae ENMT: external ear and nose normal, oropharynx normal Neck: trachea midline, no thyromegaly Respiratory: normal respiratory effort, lungs clear to auscultation Cardiovascular: RRR, no murmur, no edema Gastrointestinal (Abdomen): normal bowel sounds, soft, nontender, no hepatosplenomegaly Musculoskeletal: no cyanosis or clubbing, extremities motor strength 5/5 (Cast on L arm, WBAT, L hip dressing CDI, swelling noted) Skin: no rashes, warm and dry Neurologic: PERRL, EOMI, accommodation nl, no face palsy, no dysarthria Psychiatric: A+Ox3, euthymic affect Lymphatic: no cervical or axillary lymphadenopathy Results & Data Results & Data Vital Signs (Past 12 Hours) Vital Signs Temp Pulse Pulse Pulse Resp BP Pulse Ox 04/02/25 08:16 36.8 C 76 20 131/67 92 04/02/25 08:07 36.6 C 70 17 109/70 90 04/02/25 07:11 70 04/02/25 04:28 36.5 C 62 18 126/70 95 04/01/25 23:57 36.4 C L 63 18 122/64 94 O2 Del Method 04/02/25 08:16 Room Air 04/02/25 08:07 Room Air 04/02/25 07:11 04/02/25 04:28 Room Air 04/01/25 23:57 Room Air Diagnostic Findings Laboratory Results WBC 7.28 K/ul (4.8-10.8) 04/02/25 05:44 RBC 2.98 M/uL (4.20-5.40) L 04/02/25 05:44 Hgb 8.1 g/dl (12.0-16.0) L 04/02/25 05:44 Hct 25.9 % (37.0-47.0) L 04/02/25 05:44 MCV 86.9 fL (80.0-100.0) 04/02/25 05:44 MCH 27.2 pg (25.0-34.0) 04/02/25 05:44 MCHC 31.3 g/dL (32.0-36.0) L 04/02/25 05:44 RDW Std Deviation 70.1 fL (36.4-46.3) H 04/02/25 05:44 RDW Coeff of Donna 22.1 % (11.5-14.5) H 04/02/25 05:44 Plt Count 255 K/uL (130-400) 04/02/25 05:44 MPV 10.0 fL (9.4-12.4) 04/02/25 05:44 Immature Gran % (Auto) 0.3 % 04/02/25 05:44 Neut % (Auto) 82.6 % 04/02/25 05:44 Lymph % (Auto) 8.4 % 04/02/25 05:44 [place] % (Auto) 6.3 % 04/02/25 05:44 Eos % (Auto) 1.9 % 04/02/25 05:44 Baso % (Auto) 0.5 % 04/02/25 05:44 Neut # (Auto) 6.01 K/uL (1.40-6.50) 04/02/25 05:44 Lymph # (Auto) 0.61 K/uL (1.20-3.40) L 04/02/25 05:44 [place] # (Auto) 0.46 K/uL (0.11-0.59) 04/02/25 05:44 Eos # (Auto) 0.14 K/uL (0.00-0.50) 04/02/25 05:44 Baso # (Auto) 0.04 K/uL (0.00-0.20) 04/02/25 05:44 Immature Gran # (Auto) 0.02 K/uL (0.01-0.20) 04/02/25 05:44 Polychromasia 1+ 04/02/25 05:44 Anisocytosis Present 04/01/25 05:28 Ovalocytes 1+ 04/02/25 05:44 PT 11.1 Seconds (9.0-12.0) 03/30/25 22:30 INR 1.0 (0.9-1.1) 03/30/25 22:30 Sodium 137 mmol/L (136-145) 04/02/25 05:44 Potassium 4.1 mmol/L (3.5-5.1) 04/02/25 05:44 Chloride 105 mmol/L (98-107) 04/02/25 05:44 Carbon Dioxide 27 mmol/L (21-32) 04/02/25 05:44 Anion Gap 5 (3-11) 04/02/25 05:44 BUN 16 mg/dl (6-23) 04/02/25 05:44 Creatinine 0.62 mg/dl (0.6-1.2) 04/02/25 05:44 Est Cr Clr Drug Dosing 46.8 ml/min 04/02/25 05:44 eGFR 85.07 04/02/25 05:44 BUN/Creatinine Ratio 25.8 (10-20) H 04/02/25 05:44 Glucose 87 mg/dl (70-99(Fasting)) 04/02/25 05:44 Calcium 8.1 mg/dl (8.6-10.3) L 04/02/25 05:44 Phosphorus 3.7 mg/dl (2.5-4.9) 04/01/25 05:28 Magnesium 2.0 mg/dl (1.7-2.4) 04/01/25 05:28 Total Bilirubin 0.4 mg/dl (0.2-1.0) 04/02/25 05:44 AST 28 U/L (13-39) 04/02/25 05:44 ALT 7 U/L (7-52) 04/02/25 05:44 Alkaline Phosphatase 50 U/L (34-104) 04/02/25 05:44 Total Protein 6.2 gm/dl (6.0-8.3) 04/02/25 05:44 Albumin 3.0 gm/dl (3.4-5.0) L 04/02/25 05:44 Globulin 3.2 gm/dl (2.5-4.0) 04/02/25 05:44 Albumin/Globulin Ratio 0.9 (0.9-2) 04/02/25 05:44 Prealbumin 14.4 mg/dl (20-40) L 04/01/25 05:28 25-OH Vitamin D Total 37.7 ng/ml (30-100) 04/01/25 05:28 Impressions Shoulder X-Ray 03/30/25 22:33 Exam(s): XR LEFT SHOULDER, 2+ views EXAM: XR Left Shoulder Complete, 2 or More Views CLINICAL HISTORY: Reason for exam: L shoulder pain s/p fall. TECHNIQUE: Two or more views of the left shoulder. COMPARISON: 02/11/18 FINDINGS: Bones/joints: Shoulder prosthesis without evidence of fracture or dislocation. Suggestion of some erosive changes in the proximal humerus. Degenerative changes of the AC joint. Osteopenia. Soft tissues: No radiodense foreign body. IMPRESSION: Shoulder prosthesis without evidence of fracture or dislocation. Suggestion of some erosive changes/resorption in the proximal humerus. Electronically signed by: Graciela Varner M.D. 03/31/25 00:08 AM Hip X-Ray 03/31/25 00:00 FL hip LT 2-3V CLINICAL HISTORY: LEFT HIP TROCH COMPARISON STUDY: 03/30/2025 FLUOROSCOPY TIME: 111 seconds FLUOROSCOPY IMAGES: 5 EXPOSURE DOSE: 14 mGy FINDINGS: Fluoroscopy was provided for short left femoral gamma nail. IMPRESSION: Intraoperative fluoroscopy. ACT 112: Negative or not required by law. Electronically signed by: Foreign Tapia M.D. 03/31/2025 2:28 PM Hip/Pelvis X-Ray 03/31/25 16:39 EXAM: XR hip 1V LT w pelvis CLINICAL HISTORY: PACU - Post Surgical TECHNIQUE: X-ray images of the left hip joints in AP and lateral with AP pelvis projection. COMPARISON: No prior studies available for comparison. FINDINGS: Hip Joints: Internal fixation of the left femoral neck and shaft by intramedullary nail with no signs of loosening or hardware complications with good alignment of the intramedullary nail within the bone. Radiolucent intertrochanteric line noted at the left femoral neck with good alignment of the fracture ends. No evidence of hip dislocation, subluxation. Bilateral degenerative sacroiliitis Symphysis Pubis: Symphysis pubis show degenerative changes Soft Tissues: Soft tissue swelling noted at the left hip region and left upper thigh with associated multiple soft tissue gas densities likely sequelae of postoperative changes Additional Findings: Multiple pelvic phleboli Atheromatous calcifications. IMPRESSION: 1. Internal fixation of the left femoral neck and shaft by intramedullary nail with no signs of hardware complication 2. Radiolucent intertrochanteric line noted at the left femoral neck with good alignment of the fracture ends. 3. Soft tissue swelling noted at the left hip and upper thigh regions with associated multiple soft tissue gas densities likely sequelae of postoperative changes 4. Moderate right hip osteoarthritic changes. 5. Bilateral degenerative sacroiliitis Disclaimer: A subtle bone abnormality or fracture may not be readily apparent on X-rays, thus clinical correlation and further imaging including follow-up CT, MRI, or follow-up X-rays are advised as needed. Electronically signed by Tapan Wall 03-31-2025 6:29 PM Elbow X-Ray 04/01/25 09:18 LEFT ELBOW 2 VIEWS CLINICAL HISTORY: Postoperative examination. FINDINGS: AP and crosstable lateral views of the left elbow are compared to study dated 03/31/2025. The examination is performed through a cast, obscuring fine bony detail. The skeletal structures are osteopenic. There has been buttress plate fixation along the dorsal cortex of an olecranon process fracture. Near anatomic alignment is restored. The orthopedic hardware appears intact. The joint spaces are maintained. Soft tissue edema is present around the elbow. Soft tissue calcifications are noted in the upper forearm. IMPRESSION: There is postsurgical change from buttress plate fixation of the olecranon process as above with jainism of near-anatomic alignment. Electronically signed by: Dallin Sexton M.D. 04/01/2025 10:26 AM (1) Closed hip fracture Encounter type: initial encounter Laterality: left Qualified Code(s): S72.002A - Fracture of unspecified part of neck of left femur, initial encounter for closed fracture
[2025-04-02] MEDS ORDERED: Nursing to Pharmacy Communication SCH (19:30)
[2025-04-02] MEDS: METOPROLOL TARTRATE 25 MG TAB PO STA (20:35)
[2025-04-02 20:37] LABS: Magnesium 1.8 mg/dl (1.7-2.4)
[2025-04-02] MEDS: MAGNESIUM SULFATE / D5W 1 GM/100 ML BAG IV ONE (22:23)
[2025-04-03 07:09] LABS: Hematocrit (blood only) 25.4 % (37.0-47.0); Hemoglobin 7.8 g/dl (12.0-16.0); Immature Granulocytes # (auto) 0.03 K/uL (0.01-0.20); Immature Granulocytes % (auto) 0.5 %; Mean Corpuscular Hemoglobin 26.2 pg (25.0-34.0); Mean Corpuscular Volume 85.2 fL (80.0-100.0); Platelet Count 263 K/uL (130-400); RDW Standard Deviation 67.7 fL (36.4-46.3); Red Blood Count 2.98 M/uL (4.20-5.40); White Blood Count 5.75 K/ul (4.8-10.8)
[2025-04-03 07:37] LABS: Alanine Aminotransferase 8.0 U/L (7-52); Albumin Globulin Ratio 0.9 (0.9-2); Alkaline Phosphatase 49.0 U/L (34-104); Anion Gap 4.0 (3-11); Bilirubin,Total 0.4 mg/dl (0.2-1.0); Blood Urea Nitrogen 14.0 mg/dl (6-23); Calcium 7.9 mg/dl (8.6-10.3); Carbon Dioxide 26.0 mmol/L (21-32); Chloride 106.0 mmol/L (98-107); Creatinine Clr Calc Pharmacy 52.9 ml/min; Globulin 3.0 gm/dl (2.5-4.0); Glucose 91.0 mg/dl (70-99(Fasting)); Potassium 3.8 mmol/L (3.5-5.1); Sodium 136.0 mmol/L (136-145); Total Protein 5.7 gm/dl (6.0-8.3)
[2025-04-03 07:45] LABS: Anisocytosis Present; Ovalocytes 1+
--- NOTE | 2025-04-03 09:33 | Orthopedic Progress Note ---
Date of Service April 03, 2025 Assessment & Plan (1) Closed hip fracture: Plan: Status post ORIF left ulna and hip fracture03/31/[address] Rust PT/OT Weight-bear as tolerated on the left lower extremity with a walker and max assist. Safe for her to put weight through her left upper extremity while using the walker. DVT prophylaxis and pain control per the primary team. Dressing was left in place today, may reinforce as needed Continue to elevate her left arm on blankets and pillows, try to elevate above the heart if possible to help with the distal extremity swelling Follow-up as scheduled with orthopedics 2 weeks after discharge for cast removal on the left upper extremity, suture removal, and transition to a hinged elbow brace which we will lock in full extension while she is weightbearing through the left upper extremity. Admission and Anticipated Discharge Date Admission Date: March 31, 2025 Subjective Patient seen and examined bedside. Overall she says she is doing well. Minimal pain in elbow and wrist. No numbness or tingling in her left Lower or upper extremity. She says she has not been out of bed since surgery. She has been wiggling her fingers and her toes. Physical Exam Physical Exam: Left upper extremity: Moderate distal extremity he swelling in the hand. Plaster splint in place and fitting appropriately. Patient reports comfort. She is able to freely wiggle all of her fingers and almost make a full fist. She can hold her thumb against resistance. Color pink temperature warm. Sensation intact distally to light touch. Left lower extremity: Incision/dressing clean, dry and intact with no drainage noted. No surrounding erythema or significant swelling. No significant tenderness around incisions. She can slightly bend her knee active fully. She can tolerate some gentle passive range of motion of her hip with abduction, adduction to neutral and some flexion. She freely wiggle her toes and pump her ankles and do so against resistance with 4-5 strength. Color pink temperature warm. Sensation intact distally to light touch. Results & Data Vital Signs (Past 12 Hours) Vital Signs Temp Pulse Pulse Resp BP Pulse Ox O2 Del Method 04/03/25 07:28 70 04/03/25 04:04 37.4 C 70 16 131/65 92 Room Air 04/02/25 22:30 37.5 C 77 16 133/64 91 Room Air 04/02/25 21:49 83 (1) Closed hip fracture Encounter type: initial encounter Laterality: left Qualified Code(s): S72.002A - Fracture of unspecified part of neck of left femur, initial encounter for closed fracture
--- NOTE | 2025-04-03 10:47 | Hospitalist Progress Note ---
Date of Service April 03, 2025 Assessment & Plan (1) Closed hip fracture: Plan: This is an 89-year-old female with past medical history significant for hyperlipidemia, heart failure with preserved ejection fraction, hypertension, CAD, CVA, severe aortic stenosis, GERD, history of MALToma status post fall and left hip fracture & ulna fracture. Mechanical fall Left hip fracture Left proximal ulna fracture S/p L olecranon ORIF; L short troch nail (03/31/25) WBATleft lower extremity, PT/OT, DVT prophylaxis Ortho following, follow-up left elbow x-ray acceptable Continue arm elevation, follow-up with Ortho in 2 weeks after DC for cast removal of LUE, suture removal, and transition to hinged elbow brace Discussed L hand swelling / cast fit with ortho - feel cast is appropriate fit, recommend continuing elevation for swelling PT/OT recommending rehab, CM in today to discuss with patient and place referrals Acute blood loss anemia Hx DEL: -On iron supplements; baseline hgb 10.5 -> hgb 7.8 post-operatively Blood loss likely secondary to procedure on 03/31 - No s/s of active GI bleeding Hold SQ prophylaxis for now given worsening anemia, fall risk. Asymptomatic and no indication to transfuse right now per discussion with cards - continue to monitor Critical Severe MR Diastolic CHF CAD/HTN/HLD Cardiology following - continue holding lisinopril/Lasix for now, continue metoprolol/amlodipine/aspirin/statin Will need outpatient valve clinic appointment to discuss TAVR, currently scheduled for July, message sent to move up appointment given severity of stenosis History of MALToma S/p radiation therapy Last seen heme-onc in 2018 DVT prophylaxis: Hold lovenox given post op anemia, continue home daily aspirin 81mg, SCDs on right leg CODE STATUS: full code Disposition: Patient will need rehab on DC, referrals pending. Will call son Kenneth with update this afternoon (C: [phone]) Care coordinated with Dr. Dang. I spent a total of 50 minutes coordinating, documenting, and providing care for this patient excluding time spent in the performance of separately billed services or time spent by another provider/QHP. Admission and Anticipated Discharge Date Admission Date: March 31, 2025 Supervising Physician Co-Signing Physician Notes Patient seen and examined Agree with finding and plan as detailed by Jackie Kerr PA-C Subjective Seen and examined in 262-1. Sitting in bedside chair resting comfortably. Worked with PT this AM and was able to stand with 2 person assist. L hand swelling and discomfort with cast. Still able to wiggle fingers without issue. No L hip pain at rest. No CP, palpitations, SOB. Review of Systems Review of Systems: At least ten systems reviewed and negative except as noted in the HPI. Physical Exam Physical Exam: Gen: WD/WN, NAD, elderly female, sitting in bedside chair, A&Ox3 HEENT: Normocephalic, atraumatic, mucous membranes moist Lung: Clear to Auscultation bilaterally Heart: Regular rate, regular rhythm, + murmur Abdomen: Soft, NT, ND +BS x 4 Extremities: R lateral hip dressings c/d/i. L arm cast with moderate hand swelling noted. Can wiggle fingers, no pain with movement. Pulses and sensation intact Skin: Warm, no rash Results & Data Results & Data Vital Signs (Past 12 Hours) Vital Signs Temp Pulse Pulse Pulse Resp BP Pulse Ox 04/03/25 08:00 36.7 C 74 16 123/68 92 04/03/25 07:28 70 04/03/25 04:04 37.4 C 70 16 131/65 92 O2 Del Method 04/03/25 08:00 Room Air 04/03/25 07:28 04/03/25 04:04 Room Air Laboratory Results Short CBC 04/02/25 04/03/25 Range/Units 05:44 06:43 WBC 7.28 5.75 (4.8-10.8) K/ul Hgb 8.1 L 7.8 L (12.0-16.0) g/dl Hct 25.9 L 25.4 L (37.0-47.0) % Plt Count 255 263 (130-400) K/uL BMP 04/02/25 04/03/25 05:44 06:43 Sodium 137 136 Potassium 4.1 3.8 Chloride 105 106 Carbon Dioxide 27 26 BUN 16 14 Creatinine 0.62 0.57 L Glucose 87 91 Calcium 8.1 L 7.9 L Liver Function 04/02/25 04/03/25 Range/Units 05:44 06:43 Total Bilirubin 0.4 0.4 (0.2-1.0) mg/dl AST 28 29 (13-39) U/L ALT 7 8 (7-52) U/L Alkaline Phosphatase 50 49 (34-104) U/L Albumin 3.0 L 2.7 L (3.4-5.0) gm/dl Diagnostic Findings Hip/Pelvis X-Ray 03/30/25 22:33 Exam(s): XR HIP + PELVIS, 1 view EXAM: XR Left Hip With Pelvis When Performed, 2 or 3 Views CLINICAL HISTORY: Reason for exam: L hip pain s/p fall. TECHNIQUE: Two or three views of the left hip with pelvis when performed. COMPARISON: No relevant prior studies available. FINDINGS: Bones/joints: Comminuted and displaced intertrochanteric fracture. Degenerative changes of the hips. Soft tissues: No radiodense foreign body. Vasculature: Vascular calcifications. IMPRESSION: Comminuted and displaced left intertrochanteric fracture. Electronically signed by: Graciela Varner M.D. 03/31/25 00:10 AM Shoulder X-Ray 03/30/25 22:33 Exam(s): XR LEFT SHOULDER, 2+ views EXAM: XR Left Shoulder Complete, 2 or More Views CLINICAL HISTORY: Reason for exam: L shoulder pain s/p fall. TECHNIQUE: Two or more views of the left shoulder. COMPARISON: 02/11/18 FINDINGS: Bones/joints: Shoulder prosthesis without evidence of fracture or dislocation. Suggestion of some erosive changes in the proximal humerus. Degenerative changes of the AC joint. Osteopenia. Soft tissues: No radiodense foreign body. IMPRESSION: Shoulder prosthesis without evidence of fracture or dislocation. Suggestion of some erosive changes/resorption in the proximal humerus. Electronically signed by: Graciela Varner M.D. 03/31/25 00:08 AM Elbow X-Ray 03/31/25 00:00 INTRAOPERATIVE RADIOGRAPHS CLINICAL HISTORY: Open reduction and internal fixation of the left ulna. Fluoro time: 66 seconds Ka,r: 2.26 mGy FINDINGS: 3 spot fluoroscopic views of the left elbow are correlated with radi ographs dated 03/31/2025. There has been buttress plate fixation along the dorsal cortex of the proximal ulna transfixing a comminuted olecranon fracture. Near anatomic alignment is restored. The orthopedic hardware appears intact. Overlying soft tissue edema is observed. Soft tissue calcifications are seen in the upper forearm. IMPRESSION: Intraoperative images from open reduction and internal fixation of the proximal left ulna. Electronically signed by: Dallin Sexton M.D. 04/01/2025 7:18 AM Hip X-Ray 03/31/25 00:00 FL hip LT 2-3V CLINICAL HISTORY: LEFT HIP TROCH COMPARISON STUDY: 03/30/2025 FLUOROSCOPY TIME: 111 seconds FLUOROSCOPY IMAGES: 5 EXPOSURE DOSE: 14 mGy FINDINGS: Fluoroscopy was provided for short left femoral gamma nail. IMPRESSION: Intraoperative fluoroscopy. ACT 112: Negative or not required by law. Electronically signed by: Foreign Tapia M.D. 03/31/2025 2:28 PM Elbow X-Ray 03/31/25 08:25 XR elbow LT min 3V routine CLINICAL HISTORY: injury, tender over olecranon COMPARISON: None FINDINGS: There is an acute minimally displaced oblique fracture with intra- articular extension proximally at the ulna. No other fracture or dislocation seen at the left elbow. There are a few benign appearing superficial soft tissue calcifications at the posterior aspect proximal forearm. There is calcification at the triceps insertion on the olecranon, consistent with calcific tendinitis. IMPRESSION: Acute fracture proximal ulna. ACT 112: Negative or not required by law. Electronically signed by: Foreign Tapia M.D. 03/31/2025 9:38 AM Hip/Pelvis X-Ray 03/31/25 16:39 EXAM: XR hip 1V LT w pelvis CLINICAL HISTORY: PACU - Post Surgical TECHNIQUE: X-ray images of the left hip joints in AP and lateral with AP pelvis projection. COMPARISON: No prior studies available for comparison. FINDINGS: Hip Joints: Internal fixation of the left femoral neck and shaft by intramedullary nail with no signs of loosening or hardware complications with good alignment of the intramedullary nail within the bone. Radiolucent intertrochanteric line noted at the left femoral neck with good alignment of the fracture ends. No evidence of hip dislocation, subluxation. Bilateral degenerative sacroiliitis Symphysis Pubis: Symphysis pubis show degenerative changes Soft Tissues: Soft tissue swelling noted at the left hip region and left upper thigh with associated multiple soft tissue gas densities likely sequelae of postoperative changes Additional Findings: Multiple pelvic phleboli Atheromatous calcifications. IMPRESSION: 1. Internal fixation of the left femoral neck and shaft by intramedullary nail with no signs of hardware complication 2. Radiolucent intertrochanteric line noted at the left femoral neck with good alignment of the fracture ends. 3. Soft tissue swelling noted at the left hip and upper thigh regions with associated multiple soft tissue gas densities likely sequelae of postoperative changes 4. Moderate right hip osteoarthritic changes. 5. Bilateral degenerative sacroiliitis Disclaimer: A subtle bone abnormality or fracture may not be readily apparent on X-rays, thus clinical correlation and further imaging including follow-up CT, MRI, or follow-up X-rays are advised as needed. Electronically signed by Tapan Wall 03-31-2025 6:29 PM Elbow X-Ray 04/01/25 09:18 LEFT ELBOW 2 VIEWS CLINICAL HISTORY: Postoperative examination. FINDINGS: AP and crosstable lateral views of the left elbow are compared to study dated 03/31/2025. The examination is performed through a cast, obscuring fine bony detail. The skeletal structures are osteopenic. There has been buttress plate fixation along the dorsal cortex of an olecranon process fracture. Near anatomic alignment is restored. The orthopedic hardware appears intact. The joint spaces are maintained. Soft tissue edema is present around the elbow. Soft tissue calcifications are noted in the upper forearm. IMPRESSION: There is postsurgical change from buttress plate fixation of the olecranon process as above with yarsani of near-anatomic alignment. Electronically signed by: Dallin Sexton M.D. 04/01/2025 10:26 AM (1) Closed hip fracture Encounter type: initial encounter Laterality: left Qualified Code(s): S72.002A - Fracture of unspecified part of neck of left femur, initial encounter for closed fracture
--- NOTE | 2025-04-03 11:08 | Cardiology Progress Note ---
Date of Service April 03, 2025 Assessment & Plan (1) Critical aortic valve stenosis: (2) Severe mitral regurgitation: (3) Diastolic congestive heart failure: (4) ASCVD (arteriosclerotic cardiovascular disease): (5) Closed hip fracture: Plan 89-year-old female admitted following a mechanical fall with resultant left hip fracture. Cardiology consultation requested for preoperative evaluation. Patient with known multivessel coronary artery disease, diastolic congestive hea rt failure secondary to hypertensive heart disease and valvular heart disease, critical symptomatic aortic valve stenosis via December 2024 resting echocardiogram, chart history of CVA. Underwent left hip surgery and ORIF of left olecranon fraction with no complications on 03/31/25. -hbg slightly lower today. Monitor. -patient complaining of left hand pain and swelling today. Reports her "cast is too tight". Message sent to hospitalist. ? May need ortho to see her before discharge. - feeling well today on exam from cardiac standpoint - euvolemic on exam - continue aspirin, atorvastatin, metoprolol succinate, furosemide, amlodipine - continue to monitor on telemetry - will need outpatient valve clinic appointment to discuss TAVR, currently scheduled for July, message sent to move up appointment given severity of stenosis -anticipate discharge later today to rehab. Continue current oral cardiac medications. Case discussed with Dr. Meza I spent a total of 35 minutes on the date of service in preparation, delivery, and documentation of the care provided to this patient, excluding any time spent in the performance of separately billed services. Arabella Hodges PA-C Department of Cardiology, [facility] This chart was completed in part utilizing Speech Voice Recognition Software. Grammatical errors, random word insertions, pronoun errors, and incomplete sentences are an occasional consequence of this system due to software limitations, ambient noise, and hardware issues. Any formal questions or concerns about the content, text, or information contained within the body of this dictation should be directly addressed to the provider for clarification. Admission and Anticipated Discharge Date Admission Date: March 31, 2025 Supervising Physician Co-Signing Physician Notes I have personally performed a history and physical examination on the patient. I have reviewed the advance practitioner's documentation, and I agree with, and take responsibility for the plan of care. 89-year-old female admitted secondary to mechanical fall with left hip fracture and left proximal ulna fracture. Patient underwent surgical repair 03/31/2025. Recovering well. History of critical aortic stenosis, severe mitral regurgitation, and chronic heart failure with preserved ejection fraction. Recommend outpatient valve clinic evaluation regarding critical aortic stenosis, severe mitral regurgitation. Continue current medications including metoprolol succinate, aspirin, atorvastatin, furosemide, and amlodipine. Anticipate discharge to rehab later today. I spent a total of 30 minutes on the date of service in preparation, delivery, and documentation of the care provided to this patient, excluding any time spent in the performance of separately billed services. Todd Meza DO, [facility] Subjective Patient resting in chair comfortably. Denies chest pain or SOB. Hip pain reported when getting out of bed this morning to chair. Her left arm/hand is swollen and painful. She feels her "cast is too tight". Review of Systems Review of Systems: All systems reviewed & are unremarkable except as noted in HPI & below Physical Exam Physical Exam: General: A&Ox3. NAD. Skin: Pallor HENT: Normocephalic. Atraumatic. Eyes: PER. Conjunctiva pink, sclera pale. Neck: Transmitted systolic murmur, ? carotid bruits. Normal jugular venous distention Heart: Regular, 66 bpm. Grade III/ systolic ejection murmur. + Apical systolic murmur. No diastolic murmur appreciated. No rub. Lungs: Diminished. No wheeze. No rales Abdomen: +BS. Soft. Nontender. No masses or organomegaly. Extremities: left upper extremity casted - hand is swollen. Trivial pretibial edema. No clubbing. No cyanosis. Limited neurological examination is without focal deficits. : Matos catheter in place draining clear yellow urine Results & Data Vital Signs (Past 12 Hours) Vital Signs Temp Pulse Pulse Pulse Resp BP Pulse Ox 04/03/25 08:00 36.7 C 74 16 123/68 92 04/03/25 07:28 70 04/03/25 04:04 37.4 C 70 16 131/65 92 O2 Del Method 04/03/25 08:00 Room Air 04/03/25 07:28 04/03/25 04:04 Room Air Laboratory Results Cardiac Enzymes 04/02/25 04/03/25 Range/Units 05:44 06:43 AST 28 29 (13-39) U/L CBC 04/02/25 04/03/25 Range/Units 05:44 06:43 WBC 7.28 5.75 (4.8-10.8) K/ul RBC 2.98 L 2.98 L (4.20-5.40) M/uL Hgb 8.1 L 7.8 L (12.0-16.0) g/dl Hct 25.9 L 25.4 L (37.0-47.0) % Plt Count 255 263 (130-400) K/uL Neut # (Auto) 6.01 4.63 (1.40-6.50) K/uL Lymph # (Auto) 0.61 L 0.65 L (1.20-3.40) K/uL Mccormick # (Auto) 0.46 0.37 (0.11-0.59) K/uL Eos # (Auto) 0.14 0.04 (0.00-0.50) K/uL Baso # (Auto) 0.04 0.03 (0.00-0.20) K/uL Comprehensive Metabolic Panel 04/02/25 04/03/25 Range/Units 05:44 06:43 Sodium 137 136 (136-145) mmol/L Potassium 4.1 3.8 (3.5-5.1) mmol/L Chloride 105 106 (98-107) mmol/L Carbon Dioxide 27 26 (21-32) mmol/L BUN 16 14 (6-23) mg/dl Creatinine 0.62 0.57 L (0.6-1.2) mg/dl Glucose 87 91 (70-99(Fasting)) mg/dl Calcium 8.1 L 7.9 L (8.6-10.3) mg/dl AST 28 29 (13-39) U/L ALT 7 8 (7-52) U/L Alkaline Phosphatase 50 49 (34-104) U/L Total Protein 6.2 5.7 L (6.0-8.3) gm/dl Albumin 3.0 L 2.7 L (3.4-5.0) gm/dl Intake and Output 04/02/25 04/03/25 04/03/25 22:59 06:59 14:59 Intake Total 1259.167 / 1459.167 100 / 1459.167 Output Total 850 / 1900 350 / 1900 Balance 409.167 / -440.833 -250 / -440.833 Intake: IV 959.167 / 1159.167 100 / 1159.167 Magnesium Sulfate / D5w 1 gm In 100 / 100 100 ml @ 50 mls/hr IV ONE ONE Rx#:[id number] Sodium Chloride 0.9% 1,000 ml @ 959.167 / 959.167 50 mls/hr IV .Q20H [facility] Rx#: [id number] Oral 300 / 300 Output: Urine Amount (Catheter) 850 / 1900 350 / 1900 Matos/Indwelling 850 / 1900 350 / 1900 Other: Other Intake Source sips Weight 50.3 kg Diagnostic Findings Telemetry reviewed: NSR with PAC's. Short burst of PAT. No sustained arrhythmias Medications Administered Current Inpatient Medications Amlodipine Besylate (Amlodipine Besylate 5 Mg Tab) [facility] Stop: 04/30/25 08:59 Last Admin: 04/03/25 08:47 Dose: 5 mg Aspirin (Aspirin 81 Mg Ectab) 81 mg [facility] Stop: 04/30/25 08:59 Last Admin: 04/03/25 08:47 Dose: 81 mg Atorvastatin Calcium (Atorvastatin 20 Mg Tab) 20 [facility] Stop: 04/30/25 08:59 Last Admin: 04/03/25 08:47 Dose: 20 mg Ferrous Sulfate (Ferrous Sulfate 325 Mg Tab) 325 [facility] [place] Stop: 04/30/25 08:59 Last Admin: 04/03/25 08:48 Dose: 325 mg Furosemide (Furosemide 40 Mg Tab) 40 [facility] [place] Stop: 05/01/25 08:59 Last Admin: 04/03/25 08:48 Dose: 40 mg Heparin Sodium (Porcine) (Heparin Sod 5,000 Unit/0.5 Ml Vial) 5,000 units SC Q12 [facility] Stop: 05/01/25 20:59 Last Admin: 04/02/25 20:39 Dose: 5,000 units Hydromorphone HCl (Hydromorphone Inj 0.5 Mg/0.5 Ml Syr) 0.25 mg IV Q4H PRN PRN Reason: Mod-Sev Pain (Scale 4-10) Stop: 04/14/25 02:28 Last Admin: 04/01/25 00:57 Dose: 0.25 mg Hydromorphone HCl (Hydromorphone Inj 0.5 Mg/0.5 Ml Syr) 0.5 mg IV Q4H PRN PRN Reason: Breakthrough Pain Stop: 04/14/25 02:28 Last Admin: 04/01/25 10:51 Dose: 0.5 mg Metoprolol Succinate (Metoprolol Succ 25mg Ext Rel Tab) 12.5 mg PO QAM [facility] Stop: 04/30/25 08:59 Last Admin: 04/03/25 08:47 Dose: 12.5 mg Multivitamins/Minerals (Cerovite Adv Formula Tab) 1 tab PO QAM [facility] Stop: 04/30/25 08:59 Last Admin: 04/03/25 08:48 Dose: 1 tab Nitroglycerin (Nitroglycerin Sl 0.4 Mg/Tab Tab) 0.4 mg SL Q5M PRN PRN Reason: Chest Pain Stop: 04/30/25 02:28 Ondansetron HCl (Ondansetron Inj 2 Mg/Ml 2 Ml Vial) 4 mg IV Q6H PRN PRN Reason: Nausea Stop: 04/30/25 02:28 Potassium Chloride (Potassium Chloride Crtab 20 Meq Tabcr) 20 meq PO QAM [facility] Stop: 05/01/25 08:59 Last Admin: 04/03/25 08:49 Dose: 20 meq PG Care Time/CCT Total # of Minutes Spent Total Time Spent with Patient: Total time spent is greater than 50% in coordination of care (as documented) at patient's floor/unit and/or counseling patient: 35 Coding Level of Care Code 24477 SUB INP/OBS CARE 3/50MIN Diagnoses Critical aortic valve stenosis I35.0 Severe mitral regurgitation I34.0 Chronic diastolic congestive heart failure I50.32 Heart failure chronicity: chronic ASCVD (arteriosclerotic cardiovascular disease) I25.10 Closed hip fracture S72.002A Encounter type: initial encounter Laterality: left (3) Diastolic congestive heart failure Heart failure chronicity: chronic Qualified Code(s): I50.32 - Chronic diastolic (congestive) heart failure (5) Closed hip fracture Encounter type: initial encounter Laterality: left Qualified Code(s): S72.002A - Fracture of unspecified part of neck of left femur, initial encounter for closed fracture
[2025-04-03] MEDS: ACETAMINOPHEN 325 MG TAB PO PRN (23:04)
[2025-04-04 03:00] VITALS: RESP 18; O2SAT 95
[2025-04-04 07:17] LABS: Hematocrit (blood only) 25.0 % (37.0-47.0); Hemoglobin 8.1 g/dl (12.0-16.0); Mean Corpuscular Hemoglobin 27.6 pg (25.0-34.0); Mean Corpuscular Volume 85.3 fL (80.0-100.0); Platelet Count 296 K/uL (130-400); RDW Standard Deviation 66.9 fL (36.4-46.3); Red Blood Count 2.93 M/uL (4.20-5.40); White Blood Count 4.98 K/ul (4.8-10.8)
[2025-04-04 07:37] LABS: Anion Gap 3.0 (3-11); Blood Urea Nitrogen 13.0 mg/dl (6-23); Calcium 8.1 mg/dl (8.6-10.3); Carbon Dioxide 27.0 mmol/L (21-32); Chloride 107.0 mmol/L (98-107); Creatinine Clr Calc Pharmacy 60.3 ml/min; Glucose 93.0 mg/dl (70-99(Fasting)); Potassium 3.7 mmol/L (3.5-5.1); Sodium 137.0 mmol/L (136-145)
[2025-04-04 07:46] VITALS: TEMP 97.9
--- NOTE | 2025-04-04 09:19 | Orthopedic Progress Note ---
Date of Service April 04, 2025 Assessment & Plan (1) Closed hip fracture: Plan: Postop day #4 status post ORIF left ulna and hip fracture on 03/31/[address] Rust. Per patient, the swelling in the left hand has improved a little bit. Still 1+ today. She has been elevating, but when I saw her it was only propped up on 1 pillow. Advised patient and PT this needed to be elevated above heart. Patient expressed understanding. She was working on range of motion of the hand to mobilize the fluid. Left hip dressings are clean, dry, intact. Left in place. May reinforce as needed. Okay to shower as long as dressing is intact. PT/OT Weight-bear as tolerated on the left lower extremity with a walker and max assist. Safe for her to put weight through her left upper extremity while using the walker. DVT prophylaxis and pain control per the primary team. Follow-up as scheduled with orthopedics 2 weeks after discharge for cast removal on the left upper extremity, suture removal, and transition to a hinged elbow brace which we will lock in full extension while she is weightbearing through the left upper extremity. Authorization for [facility] has been placed. Admission and Anticipated Discharge Date Admission Date: March 31, 2025 Dalila Hubbard is seen in bed today. She states that she is doing well overall. She feels that the swelling in her left hand has improved compared to yesterday. She was able to stand and pivot and get into the chair yesterday. She denies any numbness or tingling in her fingers or toes. Physical Exam Physical Exam: Resting comfortably in bed. Sitting upright. Getting a sponge bath. Cardiovascular: Left DP pulse 1+. Musculoskeletal: Left upper extremity: Cylindrical plaster cast is fitting well. 1+ edema in the hand. Able to perform thumb extension, thumb opposition to little finger, resisted finger abduction, and wrist extension. Left lower extremity: Mild swelling about the thigh. Dressings are clean, dry, intact. No ecchymosis. No soft tissue tenderness. No pain with passive logroll of the hip. Able to initiate knee flexion. Unable to perform straight leg raise. Strength 5/5 with ankle plantarflexion, dorsiflexion, eversion. Skin: [place] and warm, dry Neurologic: No sensory deficits left fingers or left toes light touch Results & Data Vital Signs (Past 12 Hours) Vital Signs Temp Pulse Pulse Pulse Resp BP Pulse Ox 04/04/25 07:45 97.9 F 75 18 111/59 L 95 04/04/25 07:27 64 04/04/25 02:56 98.1 F 70 18 111/62 95 04/03/25 23:32 98.8 F 91 H 16 126/66 92 04/03/25 21:50 80 O2 Del Method 04/04/25 07:45 Room Air 04/04/25 07:27 04/04/25 02:56 Room Air 04/03/25 23:32 Room Air 04/03/25 21:50 Laboratory Results 04/04/25 06:57 WBC 4.98 RBC 2.93 L Hgb 8.1 L Hct 25.0 L MCV 85.3 MCH 27.6 MCHC 32.4 RDW Std Deviation 66.9 H RDW Coeff of Donna 21.8 H Plt Count 296 MPV 9.4 Sodium 137 Potassium 3.7 Chloride 107 Carbon Dioxide 27 Anion Gap 3 BUN 13 Creatinine 0.50 L Est Cr Clr Drug Dosing 60.3 eGFR 89.60 BUN/Creatinine Ratio 26.0 H Glucose 93 Calcium 8.1 L (1) Closed hip fracture Encounter type: initial encounter Laterality: left Qualified Code(s): S72.002A - Fracture of unspecified part of neck of left femur, initial encounter for closed fracture
--- NOTE | 2025-04-04 10:21 | Discharge Summary ---
Discharge Summary Date of Service April 04, 2025 Principal Dx & Hospital Course #1 = Principal Diagnosis (1) Closed hip fracture: This is an 89-year-old female with past medical history significant for hyperlipidemia, heart failure with preserved ejection fraction, hypertension, CAD, CVA, severe aortic stenosis, GERD, history of MALToma status post fall and left hip fracture & ulna fracture. Mechanical fall Left hip fracture Left proximal ulna fracture S/p L olecranon ORIF; L short troch nail (03/31/25) WBATleft lower extremity, PT/OT, DVT prophylaxis Ortho following, follow-up left elbow x-ray acceptable Continue arm elevation, follow-up with Ortho on 04/14/25 for cast removal of LUE, suture removal, and transition to hinged elbow brace Discussed L hand swelling / cast fit with ortho - feel cast is appropriate fi t, recommend continuing elevation for swelling Discharging to in-patient rehab Acute blood loss anemia Hx DEL: -On iron supplements; baseline hgb 10.5 -> hgb 7.8 post-operatively, improved to 8.1 today Blood loss likely secondary to procedure on 03/31 - No s/s of active GI bleeding Holding chemical VTE prophylaxis for now given worsening anemia, fall risk. Asymptomatic and no indication to transfuse per discussion with cards -Recommend repeat CBC in 3 days at [facility] for monitoring hgb, per provider there to determine whether to add chemical ppx back on. Continue baby aspirin as below Critical Severe MR Diastolic CHF CAD/HTN/HLD Continue holding lisinopril given borderline low BP, consider resuming as outpatient. Continue metoprolol/amlodipine/aspirin/statin/lasix Will need outpatient valve clinic appointment to discuss TAVR, currently scheduled for July, message sent by [employer] to move up appointment given severity of stenosis History of MALToma S/p radiation therapy Last seen heme-onc in 2018 Son Kenneth updated with plan over the phone yesterday and supportive of discharge to [facility]. Notes For Next Care Provider No chemical VTE ppx post op due to post op anemia and fall risk. Needs TAVR evaluation Medication Changes From Visit Holding lisinopril, lasix for now. Admission HPI Per Admitting Provider 89-year-old female with past medical history significant for hyperlipidemia, heart failure with preserved ejection fraction, hypertension, CAD, CVA, severe aortic stenosis, GERD, history of MALToma status post fall and left hip fracture. Patient lives with her son. Ambulates without support. Patient states she was getting out of the recliner chair when went slipped and lost balance and fell onto her left side. Did not hit her head. No loss of consciousness. But she felt like she broke her hip and did not get up. Denies any headache. No runny nose or sore throat. No cough. No earache. No chest pain. No shortness of breath. No nausea. No abdominal pain. Somewhat constipated. Stools are always black because of iron pills. Micturating okay. Hemodynamics are okay. Past medical history. As mentioned above. Past surgical history. Removal of parotid gland. Social history. No smoking. No alcohol. No drug use. Family history. Brother had diabetes. Mother had diabetes. Admission Exam Per Admitting Provider General- Not in distress Head- atraumatic Eyes- PERRL. ENT- oropharynx clear Neck- supple, no JVD. Lungs- clear to auscultation no wheezing or crackles Heart- regular rate and rhythm; ESM murmur present , no gallop. Abdomen- normal bowel sounds, soft, nontender, no distension. Extremities-Left leg shortened and externally rotated. can wiggle left toes, sensations intact Neuro- alert, oriented PERRL, no facial palsy; no dysarthria;obeys simple commands Discharge Exam Gen: WD/WN, NAD, elderly female, sitting in bedside chair, A&Ox3 HEENT: Normocephalic, atraumatic, mucous membranes moist Lung: Clear to Auscultation bilaterally Heart: Regular rate, regular rhythm, + murmur Abdomen: Soft, NT, ND +BS x 4 Extremities: L lateral hip dressings c/d/i. L arm cast with 1+ hand edema. Can wiggle fingers, no pain with movement. Pulses and sensation intact, warm Skin: Warm, no rash Updated Medication List Medication Instructions Recorded Confirmed Type amlodipine 5 mg tablet 5 mg PO QAM 11/12/18 03/30/25 History ferrous sulfate 325 mg (65 mg 325 mg PO QAM 01/07/25 03/30/25 History iron) tablet (Iron (ferrous sulfate)) [id number] tablet 1 tab PO QAM 01/07/25 03/30/25 History aspirin 81 mg tablet,delayed 81 mg PO QAM 03/30/25 03/30/25 History release atorvastatin 20 mg tablet 20 mg PO QAM 03/30/25 03/30/25 History furosemide 40 mg tablet 40 mg PO QAM 03/30/25 03/30/25 History lisinopril 5 mg tablet 5 mg PO QAM 03/30/25 03/30/25 History metoprolol succinate 25 mg 12.5 mg PO QAM 03/30/25 03/30/25 History tablet,extended release 24 hr potassium chloride 20 mEq 20 meq PO QAM 03/30/25 03/30/25 History tablet,extended release(part/cryst) Hospital Stay Data Consultations 03/30/25 23:10 Consult Orthopedic Surgery Routine 03/30/25 23:33 ED Decision to Admit Stat 03/31/25 08:00 Consult Cardiology Routine Procedures Performed Operation Date: 03/31/25 10:30 Actual Procedures p Left Short Troch Nail(Left) - Mert Rust MD s Left Olecranon Open Reduction Internal Fixation(Left) - Mert Rust MD Diagnostic Imagining Performed 03/31/25 FL elbow LT 3V RTN Routine FL hip LT 2-3V Routine Pending Results Patient Have Any Pending Studies at Discharge: No Discharge Instructions Given to Patient (Per Discharging Provider) MEDICATION CHANGES: HOLDING: Lisinopril, due to borderline low blood pressure. Resume as appropriate at in- patient rehab RECOMMENDATIONS FOR FOLLOW-UP: Follow-up with orthopedics on 04/14/25 as above for cast removal on the left upper extremity, suture removal, transition to hinged elbow brace Weight-bear as tolerated on the left lower extremity with a walker and max assist Safe to put weight through left upper extremity while using walker Leave dressing on left hip intact. Reinforce as needed. May change as needed if becomes soiled or disrupted. May shower as long as dressing is intact. Do not submerge under water. Elevate left upper extremity above heart to help with swelling. Ice to left hip as needed Please follow-up with cardiology in the outpatient valve clinic to discuss valve replacement. Follow up with PCP following in-patient rehab OTHER INSTRUCTIONS: Seek medical attention if you have: * temperature above 101 * chest pain or trouble breathing * abdominal pain, nausea, vomiting * diarrhea, dark stools or bloody stools * any unanswered questions or concerns Call [phone] if symptoms are severe. Please take good care of yourself. Call if you have any questions or problems. You can reach a [facility] hospitalist on duty at [facility] 24 hours a day by calling [phone]. Total Time Total Time Spent Total Time Spent (In Minutes): 50 Supervising Physician Co-Signing Physician Notes Patient seen and examined Agree with findings and plans as detailed by Jackie Wilburn PA-C
[2025-04-04 11:41] VITALS: BP 115/66
[2025-04-04 13:32] VITALS: PULSE 70
--- NOTE | 2025-04-05 13:30 | Coding Query ---
To promote full compliance with coding requirements relating to patient care, physician participation is requested in all cases of teacher hearing impaired uncertainty. Please assist us with the question(s) below: Coding Question(s): It was noted in the record, on the 03/31 Communication Note, that the patient has/is suspected to have osteoporosis, with documentation of, "after sustaining both a L hip fracture and L proximal ulna fracture s/p mechanical fall at home in the setting of underlying age-related osteoporosis". According to coding guidelines "a code for osteoporotic fracture, and not a traumatic fracture, should be used for any patient with known osteoporosis who suffers a fracture, even if the patient had a minor fall or trauma, if that fall or trauma would not usually break a normal, healthy bone." Please indicate below the type of fracture: Physician's Response(s): ( ) Osteoporotic fracture of Left Hip and Left Proximal Ulna ( x ) Traumatic fracture of Left Hip and Left Proximal Ulna ( ) Other, please specify MTDD
== END 2025-04-04 13:46 | DRG 481 ==
LOC: ED 22:18 → 2W 03-31 01:10 → 2N 04-03 21:04